=== PATIENT | male | born 1950 | race Caucasian/White ===

== ENCOUNTER 2024-05-17 09:17 | Inpatient (IN) | payer MEDICARE, OTHER, MEDICAID, SELFPAY ==
[2024-05-17] VITALS (25 sets, daily range): BP systolic 119–189; BP diastolic 70–111; PULSE 85–107; RESP 12–28; TEMP 36.5–36.9; O2SAT 95–100; BMI 25.9
--- NOTE | ~2024-05-17 | CT_ITS ---
EXAMINATION: CT abdomen pelvis w con DATE: 05/17/2024 10:20 INDICATION: Hematuria TECHNIQUE: Computed tomography (CT) of the abdomen and pelvis was performed with 100 mL Omnipaque-350 intravenous contrast. Automated exposure control and iterative reconstruction technique were employe d. The dose-length product was 656.94 mGy-cm. COMPARISON: None FINDINGS: Mild dependent atelectasis in bilateral lower lobes. Mild cardiomegaly. Atherosclerotic coronary macey ry calcifications. No pericardial or pleural effusion. Small sliding-type hiatal hernia. Cholecystect daphne clips the gallbladder fossa. Liver, spleen, pancreas and bilateral adrenal glands are normal. The re are bilateral renal cysts the largest on the right measuring 5.6 cm. There is a 1.4 cm high attenu ation lesion at the anterior interpolar left kidney which could represent either a complex proteinace ous/hemorrhagic cyst or solid renal cell carcinoma. There are small scattered colonic diverticulosis without adjacent from trace stranding to suggest diverticulitis. Small bowel and appendix are normal. There is prominent nonuniform wall thickening along the posterior and inferior bladder with strandin g in the surrounding fat suspicious for cystitis. There is some high attenuation material at the base of the bladder suspicious for clot with couple foci of possible active contrast extravasation. No fr ee intraperitoneal gas or fluid. No pathologically enlarged abdominal or pelvic lymphadenopathy. IMPRESSION: 1. Findings most suggestive of hemorrhagic cystitis with a couple foci of suspected active extravasat ion into the lumen of the bladder. Consider urology consultation. 2. 1.4 cm indeterminate hypodense attenuation left renal lesion most likely proteinaceous/hemorrhagic cyst although differential includes solid renal cell carcinoma. Recommend further evaluation with pr e and postcontrast MRI or CT. 3. Small sliding-type hiatal hernia. Reviewed, dictated and finalized at location A. CAMERA OPERATOR IMPRESSION: 1. Findings most suggestive of hemorrhagic cystitis with a couple foci of suspe cted active extravasation into the lumen of the bladder. Consider urology consu ltation. 2. 1.4 cm indeterminate hypodense attenuation left renal lesion most likely pro teinaceous/hemorrhagic cyst although differential includes solid renal cell car cinoma. Recommend further evaluation with pre and postcontrast MRI or CT. 3. Small sliding-type hiatal hernia.
--- NOTE | ~2024-05-17 | XR_ITS ---
CHEST RADIOGRAPH CLINICAL HISTORY: hemorrhagic cystitis . COMPARISON: None available TECHNIQUE: Single portable view of the chest. FINDINGS The cardiomediastinal silhouette is unremarkable. The lungs are clear. Visualized osseous structures and soft tissues are unremarkable. IMPRESSION: No focal infiltrate or effusion. Reviewed, dictated and finalized at location A. HOISTER
--- NOTE | ~2024-05-17 | MR_ITS ---
EXAMINATION: MR abdomen wo/w con DATE: 05/19/2024 12:29 INDICATION: Kidney mass. TECHNIQUE: Magnetic resonance imaging (MRI) of the abdomen was performed without and with 17 mL Multi Edna intravenous contrast. COMPARISON: CT abdomen and pelvis 05/17/2024 FINDINGS: The liver and spleen are normal. There are changes of cholecystectomy. The pancreas and adrenal gland s are normal. There are cysts and hemorrhagic cysts in the kidneys measuring up to 6.0 cm on the righ t. There are no dilated loops of bowel. There are no pathologically enlarged lymph nodes. There is no free intraperitoneal fluid. IMPRESSION: 1. Benign cysts in the kidneys. Reviewed, dictated and finalized at location A. RACT FORESTER
--- NOTE | 2024-05-17 09:39 | ED_ITS ---
HPI - General Adult General Chief complaint: Urogenital-Male Stated complaint: blood in urine Time Seen by Provider: 05/17/24 09:25 History of Present Illness HPI narrative: 73-year-old male present to the emergency department for evaluation for gross hematuria. Patient had some urine and his blood last night but then had gross hematuria this morning. Patient denies any history of urinary retention or bladder or prostate cancer. Patient is not on any blood thinners. Patient denies any recent illness and denies any abdominal pain with this. Patient does have history of poorly controlled type 2 diabetes and dementia Related Data Home Medications ?Medication ?Instructions ?Recorded ?Confirmed ?Last Taken ?Type Lactobacillus acidophilus 100 mg PO BID 05/17/24 05/17/24 Unknown History (Acidophilus capsule) acetaminophen 325 mg capsule 650 mg PO Q6H PRN pain 05/17/24 05/17/24 Unknown History atorvastatin 40 mg tablet 40 mg PO QPM 05/17/24 05/17/24 Unknown History baclofen 10 mg tablet 10 mg PO DAILY 05/17/24 05/17/24 Unknown History bismuth subsalicylate 525 mg/15 mL 1,050 mg PO BID PRN diarrhea 05/17/24 05/17/24 Unknown History oral suspension (Kaopectate Ex Str (bismuth ss)) cholecalciferol (vitamin D3) 25 25 mcg PO DAILY 05/17/24 05/17/24 Unknown History mcg (1,000 unit) capsule (Vitamin D3) cholestyramine (with sugar) 4 gram 1 ea PO DAILY 05/17/24 05/17/24 Unknown History powder for susp in a packet cilostazol 100 mg tablet 100 mg PO BID 05/17/24 05/17/24 Unknown History dapagliflozin propanediol 10 mg 10 mg PO DAILY 05/17/24 05/17/24 Unknown History tablet (Farxiga) diclofenac sodium 1 % topical gel 2 g topical BID 05/17/24 05/17/24 Unknown History gabapentin 100 mg capsule 100 mg PO TID 05/17/24 05/17/24 Unknown History insulin glargine 100 unit/mL (3 20 unit subcut QPM 05/17/24 05/17/24 Unknown History mL) subcutaneous pen (Lantus Solostar U-100 Insulin) lactase 3,000 unit tablet (Dairy 6,000 unit PO QID PRN lactose 05/17/24 05/17/24 Unknown History Relief) intolerance loperamide 2 mg capsule 2 mg PO Q6H PRN loose stool 05/17/24 05/17/24 Unknown History (Anti-Diarrheal (loperamide)) multivitamin (Daily Multi-Vitamin 1 tablet PO DAILY 05/17/24 05/17/24 Unknown History tablet) ondansetron HCl 4 mg tablet 4 mg PO Q6H PRN nausea and vomiting 05/17/24 05/17/24 Unknown History pantoprazole 40 mg tablet,delayed 40 mg PO Q12H 05/17/24 05/17/24 Unknown History release sucralfate 1 gram tablet 1 g PO BID 05/17/24 05/17/24 Unknown History tamsulosin 0.4 mg capsule 0.4 mg PO DAILY 05/17/24 05/17/24 Unknown History trazodone 50 mg tablet 25 mg PO DAILY 05/17/24 05/17/24 Unknown History venlafaxine 75 mg tablet 75 mg PO DAILY 05/17/24 05/17/24 Unknown History vitamin B12 500 mcg-folic acid 400 1 tablet PO DAILY 05/17/24 05/17/24 Unknown History mcg tablet Allergies Allergy/AdvReac Type Severity Reaction Status Date / Time glyburide Allergy Unknown Unknown Verified 05/17/24 15:16 lisinopril Allergy Unknown Unknown Verified 05/17/24 15:16 metformin Allergy Unknown Unknown Verified 05/17/24 15:16 Review of Systems 2 Review of Systems: All systems reviewed & are unremarkable except as noted in HPI and below [facility] Social History Social History Smoking packs per day: 3 Smoking cigarettes per day: 60.0 Years smoked: 20 Smoking pack-years: 60.00 Smoking status: Former smoker Tobacco type: cigarettes Alcohol intake: former Drinks per week: 120 Substance use: never Substance use type: does not use Last use: 3-4 cases per week Do You Feel Safe in your Home?: Yes Lack of Transportation: No Lack of Food: Never True Current Housing: I Have Housing Concerned About Future Housing: No Difficulty Paying Gas/Electric Bills: No Difficulty Paying for Meds: No Currently Unemployed: No Education: High School Diploma/GED Difficulty w/ Childcare or Family Care: No Spiritual care concerns: No Exam 2 Narrative: APPEARANCE: Well appearing, no pain, no distress, well-nourished. HEAD: normocephalic, atraumatic. EYES: PERRLA/EOMI, conjunctivae clear. NOSE: Normal no drainage EARS:TMS clear with good light reflex. THROAT: Pharynx clear, no exudate. NECK: Supple. No adenopathy, no masses. RESPIRATORY: Airway patent, respirations nonlabored. Clear to auscultation bilaterally, no rales, rhonchi, wheezing. CARDIOVASCULAR: Regular rate and rhythm without murmurs rubs or gallops. ABDOMINAL: Soft, nontender, nondistended, normal bowel sounds MUSCULOSKELETAL: Moves all extremities. Strength/ROM intact, No edema, No calf tenderness. NEURO: Alert. Cranial nerves II through XII intact. Grossly SKIN: Warm, dry. Normal Color Course Vital Signs Vital signs: Vital Signs Temperature 97.9 F 05/17/24 09:22 Pulse Rate 97 05/17/24 09:22 Respiratory Rate 18 05/17/24 09:22 Blood Pressure 189/100 H 05/17/24 09:22 Pulse Oximetry 97 05/17/24 09:22 Oxygen Delivery Room Air 05/17/24 09:22 Temperature 97.9 F 05/17/24 11:01 Pulse Rate 90 05/17/24 13:23 Respiratory Rate 20 05/17/24 13:23 Blood Pressure 163/86 H 05/17/24 13:23 Pulse Oximetry 96 05/17/24 13:23 Oxygen Delivery Room Air 05/17/24 09:22 Medical Decision Making MDM Narrative Medical decision making narrative: 73 old male presenting emergency department for evaluation for gross hematuria. Patient is not on any blood thinners and patient denies any prior history bladder cancer or urinary issues. Patient did have gross hematuria. CT abdomen pelvis ordered and CBI was ordered. CT was concerning for active extravasation. Urology was consulted. CV IA did help to clear the urine but when the CBI was slowed patient did continue to recline. Patient was updated results of the workup plan for admission. Case was discussed with hospitalist patient was accepted for admission. Differential Diagnosis Differential Diagnosis: Hematuria, bladder cancer, urinary tract infection, kidney stone Vital Signs Vital Signs: Vital Signs Temperature 97.9 F 05/17/24 09:22 Pulse Rate 97 05/17/24 09:22 Respiratory Rate 18 05/17/24 09:22 Blood Pressure 189/100 H 05/17/24 09:22 Pulse Oximetry 97 05/17/24 09:22 Oxygen Delivery Room Air 05/17/24 09:22 Temperature 97.9 F 05/17/24 11:01 Pulse Rate 90 05/17/24 13:23 Respiratory Rate 20 05/17/24 13:23 Blood Pressure 163/86 H 05/17/24 13:23 Pulse Oximetry 96 05/17/24 13:23 Oxygen Delivery Room Air 05/17/24 09:22 Lab Data Lab results reviewed: Yes I reviewed the patient's lab results. 05/17/24 12:29 05/17/24 09:36 Labs: Lab Results 05/17/24 05/17/24 Range/Units 09:36 10:00 WBC 10.5 H (4.5-10.0) K/mm3 RBC 4.47 L (4.6-6.20) M/mm3 Hgb 12.5 L (14.0-18.0) g/dL Hct 41.1 L (42.0-52.0) % MCV 91.9 (80-100) fl MCH 28.0 (26-34) pg MCHC 30.4 L (32-36) g/dl RDW 14.6 H (11.5-14.5) % Plt Count 207 (150-375) k/mm3 MPV 10.4 (7.4-10.4) fl Immature Gran % (Auto) 0.3 (0-0.5) % Neut % (Auto) 63.2 (45.5-73.1) % Lymph % (Auto) 25.1 (18.3-44.2) % [place] % (Auto) 8.4 (2.6-8.5) % Eos % (Auto) 2.3 (0-4.4) % Baso % (Auto) 0.7 (0.2-1.2) % Lymph # (Auto) 2.64 (0.9-3.2) K/mm3 [place] # (Auto) 0.9 H (0.1-0.6) K/mm3 Eos # (Auto) 0.2 (0-0.3) K/mm3 Baso # (Auto) 0.1 (0.0-0.1) K/mm3 Abs Immat Gran (auto) 0.03 (0.00-0.031) K/mm3 Absolute Neuts (auto) 6.7 (1.3-6.7) K/mm3 Absolute Nucleated RBC 0.000 (0.0-0.012) K/mm3 Nucleated RBC % 0.0 (0.0-0.2) % PT 13.3 (11.1-14.7) Seconds INR 1.0 APTT 28.3 (22.3-36.8) Seconds Sodium 141 (137-145) mmol/L Potassium 4.2 (3.4-5.0) mmol/L Chloride 103 (98-107) mmol/L Carbon Dioxide 31 H (22-30) mmol/L Anion Gap 7 (4-12) mmol/L BUN 15 (9-20) mg/dL Creatinine 0.80 (0.7-1.3) mg/dL Estim Creat Clear Calc 77 ml/min Estimated GFR > 60 (59 - ) Glucose 135 H (65-110) mg/dL Calcium 8.6 (8.4-10.2) mg/dL Total Bilirubin 0.6 (0.2-1.3) mg/dL AST 25 (17-59) U/L ALT 18 (6-50) U/L Alkaline Phosphatase 92 (38-126) U/L Total Protein 7.0 (6.3-8.2) g/dL Albumin 3.9 (3.5-5.1) g/dL Urine Color Red H (Yellow) Urine Appearance Turbid H (Clear) Urine pH TNP Ur Specific [place] 1.010 (1.010-1.020) Urine Protein TNP Urine Glucose (UA) TNP Urine Ketones TNP Ur Blood (Man) 4+ H (Negative) Urine Nitrate TNP Urine Bilirubin TNP Urine Urobilinogen TNP Leukocyte Esterase Rfl TNP Urine RBC >100 H (0-2) /hpf Urine WBC Unable to determine (0-3) /hpf Blood Type O Positive Antibody Screen Negative Imaging Data Radiologist's impression: Impressions Abdomen/Pelvis CT 05/17/24 10:39 IMPRESSION: 1. Findings most suggestive of hemorrhagic cystitis with a couple foci of suspected active extravasation into the lumen of the bladder. Consider urology consultation. 2. 1.4 cm indeterminate hypodense attenuation left renal lesion most likely proteinaceous/hemorrhagic cyst although differential includes solid renal cell carcinoma. Recommend further evaluation with pre and postcontrast MRI or CT. 3. Small sliding-type hiatal hernia. Discharge Plan Discharge Clinical Impression: Gross hematuria Patient Disposition: Still a Patient Condition: Serious
[2024-05-17 09:44] LABS: Basophils Absolute Auto 0.1 K/mm3 (0.0-0.1); Basophils Percent Auto 0.7 % (0.2-1.2); Eosinophils Absolute Auto 0.2 K/mm3 (0-0.3); Eosinophils Percent Auto 2.3 % (0-4.4); Hematocrit 41.1 % (42.0-52.0); Hemoglobin 12.5 g/dL (14.0-18.0); Immature Granulocyte Absolute 0.03 K/mm3 (0.00-0.031); Immature Granulocyte Percent A 0.3 % (0-0.5); Lymphocytes Absolute Auto 2.64 K/mm3 (0.9-3.2); Lymphocytes Percent Auto 25.1 % (18.3-44.2); Mean Corpuscular HGB Conc 30.4 g/dl (32-36); Mean Corpuscular Volume 91.9 fl (80-100); Mean Platelet Volume 10.4 fl (7.4-10.4); Monocytes Absolute Auto 0.9 K/mm3 (0.1-0.6); Monocytes Percent Auto 8.4 % (2.6-8.5); Neutrophils Absolute Auto 6.7 K/mm3 (1.3-6.7); Neutrophils Percent Auto 63.2 % (45.5-73.1); Platelet Count Result 207 k/mm3 (150-375); Red Blood Count 4.47 M/mm3 (4.6-6.20); Red Cell Distribution Width 14.6 % (11.5-14.5); White Blood Count 10.5 K/mm3 (4.5-10.0)
[2024-05-17 09:54] LABS: Alanine Aminotransferase 18 U/L (6-50); Albumin Level 3.9 g/dL (3.5-5.1); Alkaline Phosphatase 92 U/L (38-126); Anion Gap 7 mmol/L (4-12); Aspartate Amino Transferase 25 U/L (17-59); Bilirubin,Total 0.6 mg/dL (0.2-1.3); Blood Urea Nitrogen 15 mg/dL (9-20); Calcium 8.6 mg/dL (8.4-10.2); Carbon Dioxide 31 mmol/L (22-30); Chloride 103 mmol/L (98-107); Estimated CRCL calculation 77 ml/min; Estimated Glomerular Filt Rate > 60; Glucose 135 mg/dL (65-110); Potassium 4.2 mmol/L (3.4-5.0); Sodium 141 mmol/L (137-145)
--- OUTSIDE RECORDS SUMMARY | 2024-05-17 10:05 | XMS_ITS | Continuity of Care Document ---
Author Name [facility] Organization [facility] Care Team Providers Care Medical Office Worker Name Role Phone [facility] Unavailable Unavailable Problems Combined list of problems from Department of Defense and Veterans Affairs facilities. It does not include entries that were removed or entered in error. Problem Status Onset Date Problem Type Date of Resolution Comments Source Acute osteomyelitis of phalanx of toe Active Condition [facility] Altered mental status Active Condition [facility] Chest Wall Pain (ICD-9-CM 786.52) Active Condition [facility] Diabetes Mellitus * (ICD-9-CM 250.00) Active Condition [facility] Diabetic peripheral neuropathy Active Condition [facility] Diverticulitis of colon Active Condition [facility] DM - Diabetes mellitus Active Condition [facility] Fall Active Condition [facility] Hernia, Ventral (ICD-9-CM 553.20) Active Condition [facility] History of male erectile disorder Active Condition [facility] HTN * (ICD-9-CM 401.9) Active Condition [facility] Hyperlipidemia Active Condition [facility] Hypertension Active Condition [facility] Impotence Active Condition [facility] Knee pain Active Condition [facility] Microscopic Hematuria * (ICD-9-CM 599.7) Active Condition [facility] Mixed hyperlipidemia * (ICD-9-CM 272.2) Active Condition [facility] Muscle weakness Active Condition [facility] Noncompliance * (ICD-9-CM V15.81) Active Condition [facility] Obesity * (ICD-9-CM 278.00) Active Condition [facility] Sepsis Active Condition [facility] DIABETES MELLI W/O COMP TYP II Inactive Condition 04/15/2001 [facility] ECHINOCOCCOSIS NOS LIVER Inactive Condition 10/14/2001 [facility] HEMATURIA Inactive Condition 04/15/2001 [facility] INCISIONAL HERNIA Inactive Condition 10/14/2001 [facility] METABOLISM DISORDER NOS Inactive Condition 04/15/2001 [facility] Medications Combined list of outpatient medications from [facility] and [facility] facilities.Medications provided include 1) outpatient medications from the last 15 months, and 2) patient-reported medications. Medication Details Route Status Patient Instructions Prescription Expires Prescription Number Last Dispense Date Ordering Provider Order Date Order Qty Source FIDAXOMICIN TAB TAKE 200MG BY MOUTH TWICE DAILY - STOP AFTER MORNING DOSE ON 06-05-22. ORDER FOR REHAB FACILITY . ACTIVE BABAR WEBBER 2022 [facility] PANTOPRAZOL E NA 40MG TAB,EC TAKE ONE TABLET BY MOUTH TWICE A DAY BEFORE MEALS FOR EXCESSIV E PRODUCTI ON OF STOMACH ACID ORAL 05/31/2023 [id number] TRA PATEL 2022 60 [facility] Allergies, Adverse Reactions, Alerts Combined list of allergies from [facility] and [facility] facilities. It does not include entries that were removed or entered in error. Substance Category Reaction Severity Reaction type Status Date Reported Comments Source GLYBURIDE Propensity to adverse reactions to drug (finding) Eruption active 7 [facility] LISINOPRIL Propensity to adverse reactions to drug (finding) Eruption active 6 [facility] LISINOPRIL 2.5MG TAB Propensity to adverse reactions to drug (finding) Eruption active 9 [facility] METFORMIN Propensity to adverse reactions to drug (finding) Diarrhea active 9 [facility] METFORMIN Propensity to adverse reactions to drug (finding) Diarrhea, Eruption active 6 [facility] Immunizations Combined list of available immunizations from the [facility] and [facility] facilities. Immunization Series Date Given Administered By Site Reaction Lot Number CVX Code Drug Decorating Inspector Status Comments Source COVID-19 ([employer]), MRNA, LNP-S, PF, DEYANIRA-SUCROSE, 30 MCG/0.3 ML (AGES 12+ YEARS) 1 2022 309 complet ed [facility] TDAP 2022 ANGEL ROCKWELL LEFT DELTO ID [id number] 115 complet ed [facility] INFLUENZA VACCINE, QUADRIVALENT, ADJUVANTED 2021 205 complet ed [facility] INFLUENZA, UNSPECIFIED FORMULATION 2016 88 complet ed [facility] INFLUENZA, UNSPECIFIED FORMULATION 2013 88 complet ed OUTSIDE FACILITY [facility] TDAP 2011 115 complet ed [facility] INFLUENZA, UNSPECIFIED FORMULATION 2007 88 complet ed [facility] Results Combined list of recent chemistry, hematology and other laboratory results from Department of Defense and Veterans Affairs, ranging from 15 months to all on record, depending upon the facility. Order Name Results Value Reference Range Date Interpretation Specimen Comments Source GLUCOSE-A T GLUCOSE [MASS/VOLUM E] IN BLOOD BY AUTOMATED TEST STRIP 129 mg/dL 70 - 110 05/30 H Specimen Type: BLOOD Comment: Notify RN Test performed by: Tracey Boyd on meter [id number] Ordering Provider: BERNIE PATEL Report Released Date/Time: May 30, 2022 11:45 AM Reporting Lab: [facility] [address] [address] Performing Lab: [facility] [address] [address] [facility] GLUCOSE-A T GLUCOSE [MASS/VOLUM E] IN BLOOD BY AUTOMATED TEST STRIP 105 mg/dL 70 - 110 05/30 Specimen Type: BLOOD Comment: Test performed by: Donald HARRIS on meter [id number] LOT:[id number] Ordering Provider: BERNIE PATEL Report Released Date/Time: May 30, 2022 05:57 AM Reporting Lab: [address] [address] Performing Lab: [place] [id number] [place] [address] [facility] GLUCOSE-A T GLUCOSE [MASS/VOLUM E] IN BLOOD BY AUTOMATED TEST STRIP 131 mg/dL 70 - 110 05/29 H Specimen Type: BLOOD Comment: Notify RN Test performed by: Niles Cole on meter [id number] Ordering Provider: BERNIE PATEL Report Released Date/Time: May 29, 2022 08:38 PM Reporting Lab: [place] [phone] Performing Lab: [address] [phone] GLUCOSE-A T GLUCOSE [MASS/VOLUM E] IN BLOOD BY AUTOMATED TEST STRIP 238 mg/dL 70 - 110 05/29 H Specimen Type: BLOOD Comment: Notify RN Test performed by: Shivam HARRIS on meter [id number] LOT:[id number] Ordering Provider: BERNIE PATEL Report Released Date/Time: May 29, 2022 04:49 PM Reporting Lab: [address] [address] Performing Lab: [place] [id number] GLUCOSE-A T GLUCOSE [MASS/VOLUM E] IN BLOOD BY AUTOMATED TEST STRIP 135 mg/dL 70 - 110 05/29 H Specimen Type: BLOOD Comment: Notify RN Test performed by: Stanley HARRIS on meter [id number] Ordering Provider: NORA KUHN Report Released Date/Time: May 29, 2022 12:01 PM Reporting Lab: [address] [address] Performing Lab: [address] [phone] GLUCOSE-A T GLUCOSE [MASS/VOLUM E] IN BLOOD BY AUTOMATED TEST STRIP 119 mg/dL 70 - 110 05/29 H Specimen Type: BLOOD Comment: Notify RN Test performed by: Vega HARRIS on meter [id number] Ordering Provider: NORA KUHN Report Released Date/Time: May 29, 2022 05:38 AM Reporting Lab: [facility] [address] [address] Performing Lab: [facility] [address] [address] [facility] GLUCOSE-A T GLUCOSE [MASS/VOLUM E] IN BLOOD BY AUTOMATED TEST STRIP 174 mg/dL 70 - 110 05/28 H Specimen Type: BLOOD Comment: Test performed by: Michel HARRIS on meter [id number] Ordering Provider: NORA KUHN Report Released Date/Time: May 28, 2022 08:58 PM Reporting Lab: [facility] [address] [address] Performing Lab: [facility] [address] [place] [address] [facility] MAGNESIUM MAGNESIUM [MASS/VOLUM E] IN SERUM OR PLASMA 1.7 mg/dL 1.5 - 2.4 05/28 Specimen Type: PLASMA No comment entered. Ordering Provider: VANDANA FARR Report Released Date/Time: May 27, 2022 11:15 AM Reporting Lab: [facility] [address] [address] Performing Lab: [facility] [address] [address] [facility] PO4 PHOSPHATE [MASS/VOLUM E] IN SERUM OR PLASMA 3.9 mg/dL 2.5 - 4.9 05/28 Specimen Type: PLASMA No comment entered. Ordering Provider: VANDANA FARR Report Released Date/Time: May 27, 2022 11:15 AM Reporting Lab: [facility] [address] [address] Performing Lab: [facility] [address] [address] [facility] BMP+ALBUM IN CREATININE [MASS/VOLUM E] IN SERUM OR PLASMA 0.7 mg/dL 0.6 - 1.3 05/28 Specimen Type: PLASMA No comment entered. Ordering Provider: VANDANA FARR Report Released Date/Time: May 27, 2022 11:15 AM Reporting Lab: [facility] [address] [address] Performing Lab: [facility] [address] [address] [facility] BMP+ALBUM IN GLUCOSE [MASS/VOLUM E] IN SERUM OR PLASMA 97 mg/dL 70 - 109 05/28 Specimen Type: PLASMA No comment entered. Ordering Provider: VANDANA FARR Report Released Date/Time: May 27, 2022 11:15 AM Reporting Lab: [facility] [address] [address] Performing Lab: [facility] [address] [address] [facility] BMP+ALBUM IN SODIUM [MOLES/VOLU ME] IN SERUM OR PLASMA 135 mmol/L 135 - 145 05/28 Specimen Type: PLASMA No comment entered. Ordering Provider: VANDANA FARR Report Released Date/Time: May 27, 2022 11:15 AM Reporting Lab: [facility] [address] [address] Performing Lab: [facility] [address] [address] [facility] BMP+ALBUM IN POTASSIUM [MOLES/VOLU ME] IN SERUM OR PLASMA 3.7 mmol/L 3.5 - 5.1 05/28 Specimen Type: PLASMA No comment entered. Ordering Provider: VANDANA FARR Report Released Date/Time: May 27, 2022 11:15 AM Reporting Lab: [facility] [address] [address] Performing Lab: [facility] [address] [address] [facility] BMP+ALBUM IN CHLORIDE [MOLES/VOLU ME] IN SERUM OR PLASMA 107 mmol/L 100 - 109 05/28 Specimen Type: PLASMA No comment entered. Ordering Provider: VANDANA FARR Report Released Date/Time: May 27, 2022 11:15 AM Reporting Lab: [facility] [address] [address] Performing Lab: [facility] [address] [address] [facility] BMP+ALBUM IN CARBON DIOXIDE, TOTAL [MOLES/VOLU ME] IN SERUM OR PLASMA 27 mmol/L 22 - 29 05/28 Specimen Type: PLASMA No comment entered. Ordering Provider: VANDANA FARR Report Released Date/Time: May 27, 2022 11:15 AM Reporting Lab: [facility] [address] [address] Performing Lab: [facility] [address] [address] [facility] BMP+ALBUM IN ALBUMIN [MASS/VOLUM E] IN SERUM OR PLASMA 2.0 g/dL 3.4 - 5.0 05/28 L Specimen Type: PLASMA No comment entered. Ordering Provider: VANDANA FARR Report Released Date/Time: May 27, 2022 11:15 AM Reporting Lab: [facility] [address] [address] Performing Lab: [facility] [address] [address] [facility] BMP+ALBUM IN CALCIUM [MASS/VOLUM E] IN SERUM OR PLASMA 7.6 mg/dL 8.3 - 10.3 05/28 L Specimen Type: PLASMA No comment entered. Ordering Provider: VANDANA FARR Report Released Date/Time: May 27, 2022 11:15 AM Reporting Lab: [facility] [address] [address] Performing Lab: [facility] [address] [address] [facility] BMP+ALBUM IN UREA NITROGEN [MASS/VOLUM E] IN SERUM OR PLASMA 23 mg/dL 5.0 - 20.0 05/28 H Specimen Type: PLASMA No comment entered. Ordering Provider: VANDANA FARR Report Released Date/Time: May 27, 2022 11:15 AM Reporting Lab: [facility] [address] [address] Performing Lab: [facility] [address] [address] [facility] BMP+ALBUM IN GLOMERULAR FILTRATION RATE/1.73 SQ M.PREDICTED [VOLUME RATE/AREA] IN SERUM, PLASMA OR BLOOD BY CREATININE- BASED FORMULA (CKD-EPI 2020) >90 90 05/28 Specimen Type: PLASMA No comment entered. Ordering Provider: VANDANA FARR Report Released Date/Time: May 27, 2022 11:15 AM Reporting Lab: [facility] [address] [address] Performing Lab: [facility] [address] [address] [facility] Encounters Combined list of: 1) Encounters from Department of Veterans Affairs facilities going backup to the last 18 months, not all [place] inpatient encounters are included; 2) Encounters from the Department of Defense facilities going backup to 280 months. Location Location Details Encounter Type Encounter Number Reason For Visit Attending Provider ADM Date DC Date Status Disposition Source [facility] Outpatient Encounter [id number] 01/24 [facility] Outpatient Encounter [id number] 02/08 [facility] Outpatient Encounter [id number] 02/13 [facility] Outpatient Encounter [id number] 05/13 [facility] Outpatient Encounter [id number] 05/13 [facility] Outpatient Encounter [id number] 06/16 [facility] Outpatient Encounter [id number] 11/26 [facility] Outpatient Encounter [id number] SCOTTIE CEJA 01/29 [facility] TARGETED CASE MANAGEMENT [id number] MARCOS RIZVI 04/13 [facility] Outpatient Encounter [id number] 04/14 [facility] Outpatient Encounter [id number] ROGERIO MIDDLETON 04/17 [facility] Social History Combined list of available smoking, tobacco, and other social history from Department of Defense and Veterans Affairs facilities. Social History Type Response Date Comment Sourc e Tobacco smoking status NHIS VA-TOBACCO FORMER USER 03/07/2022 [facility] History of tobacco use VA-TOBACCO QUIT 1 5 YRS OR MORE 03/07/2022 [facility] History of tobacco use VA-TOBACCO FORMER USER 04/27/2020 [facility] History of tobacco use QUIT TOBACCO >7 Y EARS AGO 07/05/2017 [facility] History of tobacco use CURRENT TOBACCO USER 07/22/2015 [facility] History of tobacco use QUIT TOBACCO >7 Y EARS AGO 02/24/2014 [facility] History of tobacco use CURRENT TOBACCO USER 10/13/2012 [facility] History of tobacco use QUIT TOBACCO >7 Y EARS AGO 08/23/2006 [facility] History of tobacco use CURRENT NON-TOBAC CO USER-HX OF USE 04/15/2001 [facility] Advance Directives List of completed, amended, or rescinded Advance Directives on record at Department of Veterans Affairs facilities. An actual copy of the Directive is not included. Date Advance Directive Provider Source 04/27/2020 ADVANCE DIRECTIVE BYRON [facility]IGHT [facility]
--- OUTSIDE RECORDS SUMMARY | 2024-05-17 10:05 | XMS_ITS | Encounter Summary ---
Author Name [facility] Organization [facility] Address [address] [place] [address] Care Team Providers Care Bank Consultant Name Role Phone DAREN MANN Primary Care Provider Unavailab le Insurance Providers: All historical and current Section Date Range: From patient's date of to the date document was created. This section includes the names of all active insurance providers for the patient. Insurance Provider Type of Coverage Plan Name Start of Policy Coverage End of Policy Coverage Group Number Member ID Insurance Provider's Telephone Number Policy Maldonado's Name Patient's Relationship to Policy Maldonado MEDICARE (WNR) MEDICARE (M) PART A August 06, 2014 PART A [id number] MULUGETA BACHWin FLAVIO PATIENT MEDICARE (WNR) MEDICARE (M) PART A August 06, 2014 PART A [id number] MULUGETA BACHWin FLAVIO PATIENT MEDICARE (WNR) MEDICARE (M) PART B August 06, 2014 PART B [id number] MULUGETA BACHWin FLAVIO PATIENT Selected Encounter This section includes the information on record at [place] for the Encounter. Date/Time Encounter Type Encounter Description Reason Provider Source Apr 13, 2024 12:02 PM TARGETED CASE MANAGEMENT ADMIN PAT ACTIVTIES (MASNONCT) PENG RIZVI IHGregory Encounter Template Text not used by [place] Plan of Treatment: Future Appointments (+ 6 months) and Future Tests (+/- 45 days) The Plan of Treatment section includes future care activities for the patient from all [place] [facility] This section includes future appointments and future orders which are active, pending or scheduled. Future Appointments This section includes appointments that were scheduled to occur 6 months from the date of the Encounter, up to a maximum of 20 appointments. The data comes from all [facility] facilities. Appointment Date/Time Appointment Type Appointme nt Facility Name Apr 17, 2024 01:00 PM AMBULATORY - MEDICINE [facility] Social History: Smoking Status (Most current) and Tobacco Use (All prior to encounter date) This section includes the most current, and the historical, smoking and tobacco- related health factors from the [place] facility where the Encounter took place. Current Smoking Status This section includes the most current smoking, or tobacco-related health factor, from the [place] facility where the Encounter took place. Date/Time Current Smoking Status Comment Demarcus itmaya Feb 24, 2014 01:06 PM QUIT TOBACCO >7 YEARS AGO [facility] Tobacco Use History This section includes a history of the smoking, or tobacco-related health factors, that were collected on or before the date of the Encounter. The data comes from the [place] facility where the Encounter took place. Date/Time Smoking Status/Tobacco Use Comment F acelba Feb 24, 2014 01:06 PM QUIT TOBACCO >7 YEARS AGO [facility] Oct 13, 2012 11:29 AM CURRENT TOBACCO USER [facility] Oct 13, 2012 11:29 AM TOBACCO MEDS OFFER ED BUT DECLINED [facility] August 23, 2006 08:26 AM QUIT TOBACCO >7 YEARS AGO [facility] Apr 15, 2001 01:31 PM CURRENT NON-TOBACC O USER-HX OF USE [facility] Advance Directives: All historical and current Section Date Range: From patient's date of to the date document was created. This section includes ALL of a patient's completed or amended [place] Advance and Rescinded Directives. The entries below indicate that a directive exists for the patient, but an actual copy is not included with this document. The data comes from all [facility]. Date Advance Directives Provider Source Apr 27, 2020 ADVANCE DIRECTIVE BYRON WRIGHT [facility] Encounter Notes: All associated encounter notes This section contains the clinical notes associated to the Encounter. Date/Time Encounter Note(s) Provider Source Apr 13, 2024 12:03 PM PRIMARY CARE NOTE: LOCAL TITLE: [facility] TRAVELING PCMM NOTE ST STANDARD TITLE: PRIMARY CARE NOTE DATE OF NOTE: APR 13, 2024@12:03 ENTRY DATE: APR 13, 2024@12:04:07 AUTHOR: PENG RIZVI EXP COSIGNER: URGENCY: STATUS: COMPLETED Traveling/Relocating Care Coordination Patient-Centered Management Module (PCMM) New patient PCMM received and approved for permanent relocation of care to: [facility] Per chart review will establish care with a PCP on:04/17/[address] [facility] Please note the alternate [facility] is responsible for care until care is established at the receiving [facility]. /tevin/ PENG RIZVI REGISTERED NURSE, HOME TELEHEALTH COORDINATOR Signed: 04/13/2024 12:04 PENG RIZVI [facility]
--- OUTSIDE RECORDS SUMMARY | 2024-05-17 10:05 | XMS_ITS | CONTINUITY OF CARE DOCUMENT ---
Author Name jon webb Address Unknown Organization [facility] Address [address] [place] [address] Phone [phone] Care Team Providers Care Special Education Professional Name Role Phone Filipe Ramirez MD Unavailable Jaymie Paiz MD Unavailable [phone] GALINA TATE MD Unavailable PROBLEMS Condition Status Date Provider Notes Cardiology examination active Jaymie mayes MD PVD active Jaymie Paiz MD Leg Edema active Jaymie Paiz MD Diabetes, Type 2 active Jaymie Paiz MD G E R D active Jaymie Paiz MD Vitamin D deficiency active Jaymie Paiz MD Coronary Heart Disease active Jaymie mayes MD Neuropathy active Jaymie Paiz MD OSTEOARTHRITIS, Bilateral Knees active Margot Paiz MD Cardiology examination active Jaymie mayes MD ENCOUNTERS Date Type Provider Location Encounter Diag nosis - In-person encounter Office Visit Filipe Ramirez MD [facility] - In-person encounter Office Visit Jaymie Paiz MD [facility] Cardiology examination - In-person encounter Office Visit Jaymie Paiz MD [facility] - In-person encounter Office Visit Jaymie Paiz MD [facility] OSTEOARTHRITIS, Bilateral Knees - In-person encounter Office Visit Jaymie Paiz MD [facility] Cardiology examinationPVDLeg EdemaDiabetes, Type 2G E R DVitamin D deficiencyCoronary Heart DiseaseNeuropathy VITAL SIGNS Date Observation Value Provider Body Mass Index (Ratio) 37.65 kg/m2 Ector Ramirez MD blood pressure, diastolic 68 mm[Hg] Yoanna damon Pearson blood pressure, systolic 109 mm[Hg] Linda bunn Pearson oxygen saturation, oximetry 97 % Priti Pearson pulse rate 97 /min Priti Pearson respiratory rate E&M 12 /min Priti Pearson weight E&M 255 [lb_av] Priti Pearson height E&M 69 [in_i] Priti Pearson blood pressure, cuff size regular Yoanna damon Pearson Body Mass Index (Ratio) 38.39 kg/m2 Manuel Mathews blood pressure, diastolic 68 mm[Hg] Maryan Log blood pressure, systolic 122 mm[Hg] Odessa Simmsogbrittny blood pressure, cuff size regular Jefferson wolf Dougherty blood pressure, diastolic 68 mm[Hg] Ta bitha Dougherty blood pressure, systolic 122 mm[Hg] Tab itha Dougherty oxygen saturation, oximetry 97 % Catie Dougherty respiratory rate E&M 12 /min Catie Dougherty pulse rate 90 /min Catie Dougherty weight E&M 260 [lb_av] Catie Dougherty height E&M 69 [in_i] Catie Dougherty blood pressure, diastolic 70 mm[Hg] Maryan Log blood pressure, systolic 132 mm[Hg] Odessa kLogic pulse rate 87 /min William y blood pressure, cuff size regular Ja rr blood pressure, diastolic 70 mm[Hg] Ja rret blood pressure, systolic 132 mm[Hg] Sharon gong oxygen saturation, oximetry 100 % William respiratory rate E&M 16 /min William height E&M 69 [in_i] William y blood pressure, cuff size large An aidee Hughes blood pressure, diastolic 68 mm[Hg] An aidee Hughes blood pressure, systolic 123 mm[Hg] Ailyn barry Hughes oxygen saturation, oximetry 100 % Devi Hughes pulse rate 92 /min Devi Hughes height E&M 69 [in_i] Devi Hughes Body Mass Index (Ratio) 23.63 kg/m2 Ivelisse Oswald blood pressure, diastolic 66 mm[Hg] Maryan nkLogbrittny blood pressure, systolic 124 mm[Hg] Odessa [facility] blood pressure, diastolic 66 mm[Hg] Naya Oro blood pressure, systolic 124 mm[Hg] Julian Oro oxygen saturation, oximetry 99 % Danielle Oro pulse rate 93 /min Danielle hartman height E&M 69 [in_i] Danielle hartman weight E&M 160 [lb_av] Danielle hartman respiratory rate E&M 16 /min Roxana Oro blood pressure, cuff size large Naya Oro ALLERGIES No Known Drug Allergies HISTORY OF MEDICATION USE Medication Status Instructions Dates Provider Indications Com ments trazodone 50 mg tablet active Catie Dougherty Lantus Solostar U-100 Insulin 100 unit/mL (3 mL) insulin pen active Catie Dougherty atorvastatin 40 mg tablet active Catie Dougherty polymyxin B sulf-trimethoprim 10,000 unit- 1 mg/mL drops active Catie Dougherty aspirin 81 mg tablet,delayed release (DR/EC) active Take 1 tablet by mouth once a day Patricia Narayananorglmichael [facility] cilostazol 100 mg tablet active TAKE 1 TABLET BY MOUTH TWICE A DAY Jaymie Paiz MD Lipitor 20 mg tablet active TAKE 1 TABLET BY MOUTH EVERY DAY Patriciajoey Narayananmiglia [facility] tamsulosin 0.4 mg capsule active William oxycodone 5 mg tablet completed TAKE 1 TABLET BY MOUTH EVERY 6 HOURS NEEDED FOR BREAKTHROUGH PAIN - Patriciajoey Narayananmiglmichael [facility] lactulose 10 gram/15 mL solution completed - Patricia Narayananmimichael KLEINP insulin glargine 100 unit/mL (3 mL) insulin pen active Danielle Oro pantoprazole 40 mg tablet,delayed release (DR/EC) active Danielle Oro gabapentin 100 mg capsule active Danielle Oro ergocalciferol (vitamin D2) 1,250 mcg (50,000 unit) capsule active Danielle Oro sucralfate 1 gram tablet active Danielle Oro SOCIAL HISTORY Date Observation Value Provider personal history of marijuana use no Filipe Ramirez MD drug use no Filipe Hartman alcohol use no Filipe Hartman smoking, year quit 37 Filipe tuttle MD cigarette use yes Filipe Ramirez MD smoking status Former smoker Filipe reagan MD smoking, year quit 37 Jaymie Paiz MD cigarette use yes Jaymie Paiz MD personal history of marijuana use no Jaymie Paiz MD drug use no Jaymie Paiz MD alcohol use no Jaymie Paiz MD smoking status Former smoker Jaymie pate MD personal history of marijuana use no Patricia Ventimiglia CONTENT DEVELOPMENT SPECIALIST drug use no Patricia Ventimig chapincito [employer] DEVELOPMENT SPECIALIST alcohol use no Patricia Ventimig chapincito [facility] smoking status Never smoker Patricia Loera iglia [employer] DEVELOPMENT SPECIALIST social history reviewed E&M revi ewed - no changes required Jaymie Paiz MD social history E&M S moking History: Margaret kowalski has never smoked. Jaymie Paiz MD smoking status Never smoker Devi Saul social history E&M S moking History: Margaret kowalski has never smoked. Randi Oswald social history reviewed E&M revi ewed - no changes required Randi Oswald smoking status Never smoker Danielle Huseyin and FUNCTIONAL STATUS Date Observation Value Provider HRA, CV Assess/Plan, Angina (inactive) Management Plan continue current therapy Patricia Levyia [facility] HRA, CV Assess/Plan, Angina (inactive) Management Plan continue current therapy Randi Oswald INSURANCE PROVIDERS Payer name Policy type / Coverage type [facility] Medicaid 0 [id number] ADVANCE DIRECTIVES Name Date DISCUSSED - NO DECISION MADE TREATMENT PLAN Date Name Performer [id number],C, H is updated medication list for this problem includes: Pantoprazole 40 Mg Tablet,delayed Release (dr/ec) (Pantoprazole) Sucralfate 1 Gram Tablet (Sucralfate) Jaymie Paiz MD [id number],C,On vitamin D Jaymie Paiz MD [id number],C,C ontinues on insulin Jaymie Paiz MD [id number],C,L imited flexion and extension of both knees with inability to walk. Pt now wheelchair bound. May benefit from seeing orthopedist. Jaymie Paiz MD [id number],C,O n gabapentin. Likely related to Diabetes. Jaymie Paiz MD [id number],C,B ilateral amputations of toes on both feet. Denies of any pain. No ulcerations. 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 As he has no symptoms, and there were no ulcerations and being minimally ambulatory no intervention at present is indicated. Jaymie Paiz MD [id number],C,H e had cath done a few years ago that did not show any signficiant CAD. Jaymie Paiz MD [id number],C, O n supplementation Randi Oswald [id number],C, C ontinues on pantoprazole Randi Oswald [id number],C, C ontinues on insulin Randi Oswald [id number],C, H ad a cath a few years ago that did not show any signficiant CAD. Randi Oswald [id number],C, P t complains of non healing sore on right foot. Pt reports having all toes amputated for arterial disease, one surgery in Feb 2022 and one in May 2022. Will obtain ABIs to assess the arterial flow of both legs. Randi Oswald Cardiology Filipe Ramirez MD Cardiology: H is updated medication list for this problem includes: Insulin Glargine 100 Unit/ml (3 Ml) Insulin Pen (Insulin glargine) Filipe Ramirez MD Cardiology: Amelia e had cath done a few years ago that did not show any signficiant CAD. Filipe Ramirez MD Cardiology:Asymptoma tic and without lesions. I n this situation, medical therapy is best option. Intervention runs risk of occluding only blood flow to either foot. This could result in BKA. Filipe Ramirez MD Cardiology: H e had cath done a few years ago that did not show any signficiant CAD. Jaymie Paiz MD Cardiology: L imited flexion and extension of both knees with inability to walk. Pt now wheelchair bound. May benefit from seeing orthopedist. Jaymie Paiz MD Cardiology Jaymie Hartman Cardiology:CT-AIF wi ll be reviewed by Dr. Ambar alfaro anagment per Dr. Ambar Chang T-AIF IMPRESSION: 1 . Peripheral arterial disease as described above with areas of severe s tenosis and occlusion in the bilateral posterior tibial arteries and left t ibioperoneal trunk as detailed above. 2 . No abdominal aortic aneurysm or dissection. 3 . Bladder wall thickening and adjacent stranding, may be seen with cystitis i n the appropriate clinical setting. Neoplasm not excluded. 4 . Additional findings as detailed above. Jaymie aPiz MD Cardiology: H is updated medication list for this problem includes: Pantoprazole 40 Mg Tablet,delayed Release (dr/ec) (Pantoprazole) Sucralfate 1 Gram Tablet (Sucralfate) [facility] Cardiology:on replacement therap y [facility] Cardiology: H is updated medication list for this problem includes: Insulin Glargine 100 Unit/ml (3 Ml) Insulin Pen (Insulin glargine) [facility] Cardiology:His legs are swollen Lt >RT has abnormal GAURI in 09/2022 W e will do venous doppler to r/o DVT and/or venous insufficiency w ill need CT AIF w ill add asa and statin H is updated medication list for this problem includes: Aspirin 81 Mg Tablet,delayed Release (dr/ec) (Aspirin) ..... Take 1 tablet by mouth once a day Cilostazol 50 Mg Tablet (Cilostazol) ..... Take 1 tablet by mouth twice a day [facility] Cardiology: H is updated medication list for this problem includes: Pantoprazole 40 Mg Tablet,delayed Release (dr/ec) (Pantoprazole) Sucralfate 1 Gram Tablet (Sucralfate) Jaymie Paiz MD Cardiology:On vitamin D Jaymie Paiz MD Cardiology:Continues on insulin Jaymie Paiz MD Cardiology:Limited f lexion and extension of both knees with inability to walk. Pt now wheelchair bound. May benefit from seeing orthopedist. Jaymie Paiz MD Cardiology:On gabape ntin. Likely related to Diabetes. Jaymie Paiz MD Cardiology:Bilateral amputations of toes on both feet. Denies of any pain. No ulcerations. 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 As he has no symptoms, and there were no ulcerations and being minimally ambulatory no intervention at present is indicated. Jaymie Paiz MD Cardiology:He had ca th done a few years ago that did not show any signficiant CAD. Jaymie Paiz MD Cardiology: O n supplementation Randi Oswald Cardiology: C ontinues on pantoprazole Randi Oswald Cardiology: C ontinues on insulin Randi Oswald Cardiology: H ad a cath a few years ago that did not show any signficiant CAD. Randi Oswald Cardiology: P t complains of non healing sore on right foot. Pt reports having all toes amputated for arterial disease, one surgery in Feb 2022 and one in May 2022. Will obtain ABIs to assess the arterial flow of both legs. Randi Oswald Date Name PROTHROMBIN TIME WIT H INR LIPID PANEL CBC (INCLUDES DIFF/P LT) BASIC METABOLIC PANE L W/EGFR CT Angio AIF (Abd, l ower extremities) Venous Doppler Bilat eral LE Arterial Duplex Bi-L la EX HISTORY OF PROCEDURES Procedure Date Procedure Name Provider Procedure Notes S tatus Complex e/m visit add on Filipe Ramirez MD completed RENETTA Paiz MD complet ed RENETTA Paiz MD complet ed RENETTA Paiz MD complet ed RENETTA Paiz MD complet ed
--- OUTSIDE RECORDS SUMMARY | 2024-05-17 10:05 | XMS_ITS | Clinical Summary ---
Author Organization [facility] Address [address] [place] [address] Care Team Providers Care Clothing Supervisor Name Role Phone Unavailable Primary Care Provider Unavailabl e Source Comments [facility],non-owned Affiliates and Associated Physician Practices is amultiple site organization consisting of ambulatory clinics and hospital sitesin [place], [place], [place]. This disclosure is being madepursuant to the Care Everywhere program and may not contain all information available regarding this patient. Last updated 17.[facility] Beneq Allergies Active Allergy Reactions Criticality Noted Date Comments Lisinopril Urticaria 05/01/2014 Medications * Be aware that medications may not be up to date on this document. Alwaysverify current medications with the patient. Medication Sig Dispensed Refills Start Date End Date Status ibuprofen (MOTRIN) 600 MG tablet Take 1 Tab by mouth every 6 hours as needed for Pain. 20 Tab 0 05/01/2014 Active oxyCODONE-acetaminophe n (PERCOCET) 5-325 MG tablet Take 1 Tab by mouth every 4 hours as needed for Pain. 15 Tab 0 05/01/2014 Active Social History Tobacco Use Types Packs/Day Years Used Date Smoking Tobacco: Never Assessed Sex and Gender Information Value Date Recorded Sex Assigned at Not on file Gender Identity Not on file Sexual Orientation Not on file Last Filed Vital Signs Vital Sign Reading Time Taken Comments Blood Pressure 164/78 05/01/2014 2:24 AM MOTOR BLOCK MECHANIC Pulse 90 05/01/2014 2:24 AM MOTOR BLOCK MECHANIC Temperature 36.9 C (98.5 F) 05/01/2014 12:01 AM MOTOR BLOCK MECHANIC Respiratory Rate - - Oxygen Saturation 100% 05/01/2014 2:24 AM MOTOR BLOCK MECHANIC Inhaled Oxygen Concentration - - Weight 99.8 kg (220 lb) 05/01/2014 12:01 AM MOTOR BLOCK MECHANIC Height 170.2 cm (5' 7 ) 05/01/2014 12:01 AM MOTOR BLOCK MECHANIC Body Mass Index 34.46 05/01/2014 12:01 AM MOTOR BLOCK MECHANIC Plan of Treatment Health Maintenance Due Date Last Done Comments COLOGUARD (AGES 45-75) - COL ON CA SCREENING 1949 COLON MONITORING 1949 COLONOSCOPY - COLON CA SCREENING 1949 CT COLONOGRAPHY - COLON CA SCREENING 1950 Colorectal Cancer Screening 1949 FIT - COLON CA SCREENING 1949 FLEX SIG - COLON CA SCREENING 1949 LIPID TESTING 1949 HEPATITIS C SCREENING 08/05/1967 DTAP/TDAP/TD VACCINES (1 - Tdap) 1968 PNEUMOCOCCAL VACCINE 50+ (1 of 1 - PCV) 08/10/1999 ZOSTER VACCINE (1 of 2) 08/10/1999 COVID-19 VACCINE ( - 2023-2 5 season) 2023 INFLUENZA VACCINE (#1) 2023 DEPRESSION SCREENING 04/08/2024 Respiratory Syncytial Virus (RSV) Vaccine Pt: or over 60 yrs (1 - 1-dose 75+ series) 2024 HEPATITIS B VACCINE Aged Out No longe r eligible based on patient's age to complete this topic HIB VACCINE Aged Out No longer eligi ble based on patient's age to complete this topic HPV VACCINE Aged Out No longer eligi ble based on patient's age to complete this topic MENINGOCOCCAL (Group B) VACCINE Aged Out No longer eligible based on patient's age to complete this topic MENINGOCOCCAL VACCINE Aged Out No delmy koko eligible based on patient's age to complete this topic
--- OUTSIDE RECORDS SUMMARY | 2024-05-17 10:05 | XMS_ITS | Continuity of Care Document ---
Author Organization [facility] Address [address] [place] [address] [place] [address] Phone Care Team Providers Care Operations Support Professionals Name Role Phone Som Ceballos Unavailable Unavailable Procedures Procedure Date Eye Exam, New Patient Refraction Advance Directives Directive Yes / No Effective Date File Name No Information Encounters Encounter Description Practice Location Reason(s) For Visit Diagnoses Date Provider Providers Copied on Encounter [facility], [address] [place] [address] [address] [place], [place], [id number], [place] tel:[phone] SEC [facility] No Information [address] Lashwantalha [address]. [address], [place], [address], [place]. tel:[phone] Family History Family Member Type Diagnosis Age At Onset No Information Payers Payer name Insurance type Covered green party ID Authoriza tion(s) Medicaid [facility] [id number] Social History Type Description Quantity Date Captured Comments Sex Male Smoking Status No Information Chief Complaint And Reason For Visit No Information Reason For Referral Reason For Referral No Information History Of Present Illness Encounter Date Complaint History Of Prese nt Illness No Information Functional Status Date Functional Assessmen t No Information Instructions Date Instruction Additional Infor mation No Information Assessments Type Assessment Date No Information Patient Care Teams Name Effective Dates (start - stop) Status Members No Information
--- OUTSIDE RECORDS SUMMARY | 2024-05-17 10:05 | XMS_ITS ---
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 Date/Time Encounter Type Encounter Description Reason Provider Source Jan 30, 2024 11:50 AM Outpatient Encounter GENERAL INTERNAL MEDICINE ROX CEJA I[facility] Encounter Template Text not used by [facility] Plan of Treatment: Future Appointments (+ 6 months) and Future Tests (+/- 45 days) The Plan of Treatment section includes future care activities for the patient [facility] This section includes future appointments and future orders which are active, pending or scheduled. Future Appointments This section includes appointments that were scheduled to occur 6 months from the date of the Encounter, up to a maximum of 20 appointments. The data comes from all [place] treatment facilities. Appointment Date/Time Appointment Type Appointme nt Facility Name Apr 17, 2024 01:00 PM AMBULATORY - MEDICINE [facility] Social History: Smoking Status (Most current) and Tobacco Use (All prior to encounter date) This section includes the most current, and the historical, smoking and tobacco- related health factors from the [place] facility where the Encounter took place. Current Smoking Status This section includes the most current smoking, or tobacco-related health factor, from the [place] facility where the Encounter took place. Date/Time Current Smoking Status Comment Demarcus arrieta Feb 24, 2014 01:06 PM QUIT TOBACCO >7 YEARS AGO [facility] Tobacco Use History This section includes a history of the smoking, or tobacco-related health factors, that were collected on or before the date of the Encounter. The data comes from the [place] facility where the Encounter took place. Date/Time Smoking Status/Tobacco Use Comment F alix Feb 24, 2014 01:06 PM QUIT TOBACCO >7 YEARS AGO [facility] Oct 13, 2012 11:29 AM CURRENT TOBACCO USER [facility] Oct 13, 2012 11:29 AM TOBACCO MEDS OFFER ED BUT DECLINED [facility] August 23, 2006 08:26 AM QUIT TOBACCO >7 YEARS AGO [facility] Apr 15, 2001 01:31 PM CURRENT NON-TOBACC O USER-HX OF USE [facility] Advance Directives: All historical and current Section Date Range: From patient's date of to the date document was created. This section includes ALL of a patient's completed or amended [place] Advance and Rescinded Directives. The entries below indicate that a directive exists for the patient, but an actual copy is not included with this document. The data comes from all [facility]. Date Advance Directives Provider Source Apr 27, 2020 ADVANCE DIRECTIVE [facility] Encounter Notes: All associated encounter notes This section contains the clinical notes associated to the Encounter. 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: URGENCY: STATUS: COMPLETED Emergency Notification Intake Date Presenting to the Facility: Jan Method of Contact: Notified from ECR worklist Notification ID: [id number] [facility] Referral #: [id number] Clinical Review [facility] Hospital Name: [facility] Address: City: [place] State: [place] Zip Code: Phone : Community Facility Point of Contact: Name: Phone: Chief complaint: LEG PAIN Primary Diagnosis: Disposition Unknown at time of intake note entry Evaluated and released from ED for: purple area on right knee that was removed with alcohol swab, no injury. Records r/t this episode of care received; sent to [facility] for scanning. /tevin/ ROX CEJA REGISTERED NURSE Signed: 01/30/2024 11:55 ROX CEJA [facility]
--- OUTSIDE RECORDS SUMMARY | 2024-05-17 10:05 | XMS_ITS | Data Portability ---
Author Organization [facility], Main Office Address [address] [place] [address] Care Team Providers Care Drum Tender Name Role Phone GALINA TATE Primary Care Provider Assessment Encounter Date Assessment Date Assessment LastModified by Organization Details LastModified Time 01/29/2023 01/29/2023 This note is dictated and transcribed by [employer]. Septic Technician variances may occur. Despite proofreading, typographical errors may occur. Not available 01/29/2023 14:36:23 Plan of Treatment Reminders Order Date Submit Date Provider Last Modified By Organization Details Last Modified Time Details Appointments None record ed. Lab None record ed. Referral None record ed. Procedures None record ed. Surgeries None record ed. Imaging None record ed. Medication Orders None record ed. Patient Targets Encounter Date Encounter Id Patient Goals Patient Target Last Modified By Organization Details Last Modified Time secondary to bilateral foot amputations patient is recommended to obtain multilayer diabetic shoes and inserts with custom toe Fillers to prevent wounds of the feet. Not available 01/30/2023 12:02:26 Patient InstructionsNo instructions recorded. Reason for Referral None Reported. Results Created Date Observation Date Name Description Value Unit Range Abnormal Flag Note LastModifiedBy Organization Detail LastModifiedTime 08/23/1908/22/2022 XR, urogr am, retro grade No observ ation record ed. [email or web address] [facility] [address] [place], [address], 09/06/2022 17:58:33 Result Notes None recorded. Problems Name Problem SNOMED Code Status Onset Date Resolution Date Notes Provider Name and Address Organization Details Recorded Time Benign prostatic hyperplasi a 099537998 Active 2022 Marcio Shukla MD [address] [address], [place], [address] , [facility] 3 10:26:38 Kidney stone 17206718 Active 2022 Marcio Shukla MD [address] [facility], [facility] [address], [place], [address] , [facility] 3 10:26:42 Vitamin B deficiency 30918924 Active 2022 Pretty dobson, [place] [facility] 3 14:32:15 Contractur e of left knee joint 5557311306073 00 Active 2022 Pretty Constantino null, [place] [facility] 3 14:32:26 Altered mental status 730306751 Active 2022 Pretty Constantino null, [place] [facility] 3 14:32:34 Moderate cognitive impairment 943483876 Active 2022 Pretty Constantino null, [place] [facility] 3 14:32:49 Contractur e of right knee joint 8476750895670 05 Active 2022 Pretty Constantino null, [place] [facility] 3 14:33:00 Diverticul ar disease 444093523 Active 2022 Pretty Constantino null, [place] - [facility] 3 14:33:08 Essential hypertensi on 63668396 Active 2022 Pretty dobson, [place] [facility] 3 14:33:17 Diabetic peripheral neuropathy 105499067 Active 2022 Marcio Avalos DPM [address] [facility], [facility] [address], [place], [address] , [facility] 3 14:35:52 Hyperlipid emia 48481928 Active 2022 Pretty Constantino null, [place] [facility] 3 14:36:18 Multiple joint pain 78727801 Active 2022 Pretty Constantino null[place] [facility] 3 14:36:27 Sepsis 95165503 Active 2022 Pretty Constantino null, [place] [facility] 3 14:36:37 Abnormal gait 10298899 Active 2022 Pretty Dougie null[place] [facility] [place] [facility] 3 14:36:45 Clostridiu m difficile colitis 149073321 Active 2022 Pretty Constantino null[place] [facility] 3 14:36:57 Neuropathy 175898527 Active 2022 Pretty Constantino null, [place] [facility] 3 14:37:07 Constipati on 72194124 Active 2022 Pretty Constantino null, [place] [facility] 3 14:37:16 Muscle weakness 65243689 Active 2022 Pretty Constantino null, [place] [facility] 3 14:37:25 Diarrhea 66849570 Active 2022 Pretty Constantino null[place] [facility] 3 14:37:33 Chronic back pain 911099354 Active 2022 Pretty Constantino null[place] [facility] 3 14:38:27 Dementia 14469275 Active 2022 Pretty Constantino null[place] [facility] 3 14:38:44 Flexion contractur e of the knee 392461050 Active 2022 Marcio Avalos DPM [address] [facility], [address] [address], [place], [address] , [facility] 3 12:02:35 History of amputation of foot 102540848 Active 2022 Marcio Avalos DPM [address] [facility], [facility] [address], [place], [address] , [facility] 3 12:02:44 Problem Notes None recorded. Procedures Surgical History Date Name Laterality Status Provider Name and Address Organization Details Recorded Time 05/23/202 3 Anderson Catheter Removal completed Poonam Cervantes MA [facility] 08/28/2022 10:06:37 Imaging Results Imaging Date Name Status LastModified by Organiz ation Details LastModified Time 08/22/2022 XR, urogram, retrograde completed [email or web address] [facility] [address] [place], [address], 09/06/2022 17:58:33 Procedure Notes None recorded. Medical Equipment None Reported. Allergies Allergen ID Allergen Name Allergen Category Reaction Reaction Severity Criticality Documentation Date Start Date Code Code System Note Provider Name and Address Organization Details Recorded Time 11145 metformin medicatio n Not available Not available Not available 01/29/2023 6809 RxNorm Pretty Constantino [employer] [facility] 14:26:56 76189 glyburide medicatio n Not available Not available Not available 01/29/2023 4815 RxNorm Pretty Constantino [employer] [facility] 14:27:13 71763 lisinopri l medicatio n Not available Not available Not available 01/29/2023 97319 [facility]Norm [facility] 14:27:29 Medications Name Sig Start Date Stop Date Status Note LastModified by Organization Details LastModified Time Santyl 250 unit/gram topical ointment 01/29 completed Not Available Not Available Not Available doxycycline hyclate 100 mg capsule 01/29 completed Not Available Not Available Not Available ofloxacin 0.3 % eye drops active Not Available Not Available Not Available sucralfate 1 gram tablet active Not Available Not Available Not Available metronidazo le 500 mg tablet TAKE 1 TABLET BY MOUTH EVERY 6 HOURS 01/29 completed Not Available Not Available Not Available vancomycin 125 mg capsule TAKE 1 CAPSULE BY MOUTH 4 TIMES A DAY 01/29 completed Not Available Not Available Not Available carvedilol 3.125 mg tablet 01/29 completed Not Available Not Available Not Available ketorolac 0.5 % eye drops active Not Available Not Available Not Available prednisolon e acetate 1 % eye drops,suspe nsion active Not Available Not Available Not Available tamsulosin 0.4 mg capsule active Not Available Not Available Not Available ciprofloxac in 0.3 % eye drops 01/29 completed Not Available Not Available Not Available sulfacetami de sodium 10 % eye drops 01/29 completed Not Available Not Available Not Available baclofen 10 mg tablet active Not Available Not Available No t Available pantoprazol e 40 mg tablet,sylvester yed release active Not Available Not Available Not Available gabapentin 300 mg capsule 01/29 completed Not Available Not Available Not Available mupirocin 2 % topical ointment 01/29 completed Not Available Not Available Not Available gabapentin 100 mg capsule active Not Available Not Available Not Available ergocalcife rol (vitamin D2) 1,250 mcg (50,000 unit) capsule 01/29 completed Not Available Not Available Not Available levofloxaci n 500 mg tablet 01/29 completed Not Available Not Available Not Available amoxicillin 875 mg-potassiu m clavulanate 125 mg tablet 01/29 completed Not Available Not Available Not Available oxycodone 5 mg tablet TAKE 1 TABLET BY MOUTH EVERY 6 HOURS NEEDED FOR BREAKTHRO UGH PAIN 01/29 completed Not Available Not Available Not Available cholestyram ine (with sugar) 4 gram powder for susp in a packet active Not Available Not Available Not Available lactulose 10 gram/15 mL oral solution 01/29 completed Not Available Not Available Not Available Novofine Autocover 30 gauge x 1/3 needle active Not Available Not Available Not Available insulin glargine (U-100) 100 unit/mL (3 mL) subcutaneou s pen active Not Available Not Available Not Available Firvanq 25 mg/mL oral solution 01/29 completed Not Available Not Available Not Available Easy Touch Safety Pen Needle 30 gauge x 5/16 active Not Available Not Available Not Available Vitals Date Recorded Body height Body mass index (BMI) Body weight Provider Name and Address Organization Details Last Updated DateTime 01/29/2023 165.1 cm 32.4 kg/m2 86482.51 g Pretty Constantino [place] [facility] 01/29/2023 14:43:12 Date Recorded Heart rate Respiratory rate Oxygen saturation Oxygen saturation in Arterial blood by Pulse oximetry Systolic blood pressure Diastolic blood pressure Provider Name and Address Organization Details Last Updated DateTime 94 /min 14 /min 97 % 97 % 169 mm[Hg] 99 mm[Hg] Zoey Ortez [facility] 14:31:06 Social History Question Answer Notes LastModified by Organizat ion Details LastModified Time Tobacco Smoking Status Former Smoker Pretty dobson, [facility] 01/29/2023 14:43:37 What Is Your Level Of Alcohol Consumption? Heavy Information not available 01/29/2023 How Many Years Have You Smoked Tobacco? 35 Information not available 01/29/2023 Sex: Unknown Functional Status None recorded. Mental Status None recorded. Family History Nothing Reported. Medical History Condition Response NEUROPATHY Y MENTAL DISORDER/ILLNESS Y BOWEL PROBLEMS Y HYPERTENSION Y HIGH CHOLESTEROL / HYPERLIPIDEMIA Y Past Encounters Encounter ID Performer Location Encounter Start Date Encounter Closed Date Diagnosis/Indication Diagnosis SNOMED-CT Code Diagnosis ICD10 Code Diagnosis Note [id number] Marcio Shukla MD [facility] [place] [address] [facility], [address] [place] [address] 08/28/2022 09:32:55 08/28/2022 10:35:04 [id number] Marcio Avalos DPM [facility] [place] [address] [place] [address], [facility] [address] [place] [address] 01/29/2023 14:23:09 01/30/2023 13:52:10 Diabetic peripheral neuropathy 592976593 E11.40 Patient educated on neuropathy , diabetes, diabetic diet, and daily foot exams. Patient is to check feet daily for new wounds, blisters, redness to prevent infection and ulceration s to the feet. Patient will return to clinic in 3 months for diabetic foot workup.Rx diabetic shoes and inserts History of amputation of foot 695780626 Z89.439 bilateral feet Flexion co ntracture of the knee 556122293 M24.569 recommend follow-up with orthopedic Health Concerns Section Related Observation LastModified by Organization Detai ls LastModified Time None Recorded Concern Status LastModified by Organization Details LastModified Time None Recorded Advance Directives Directive None Recorded Payers Encounter Date Sequence Insurance Name Policy Number Policy Maldonado Covered Member ID Maldonado Member ID Guarantor Name 08/28/2022 1 [place] [employer] [facility] [employer] Maurice Moe [id number] Maurice Moe 08/28/2022 1 [place] Maurice Moe [id number] Maurice Moe 01/29/2023 1 [place] [facility] Maurice Moe [id number] Maurice Moe Notes Date Note Type Note Provider Name and Address Organization Details Recorded Time 01/29/2023 text/html . Patient is a 72-year-old male diabetic who presents to the office with complaints bilateral feet amputations. Patient states that he was living at home with his and had a rat problem. Patient states that he developed wounds and the mice wound eat his toes. Patient presents with a skills worker who states this is the story they have been told is uncertain whether not this is completely true. Patient has bilat all TMA amputation needs to which he states he had performed and 7 months ago while at the [place]. Patient now is living in a snf facility with his . Patient denies any other complaints. Marcio Avalos DPM [address] [facility], [facility] [address], [place], [address], [place] [facility] [employer] 01/30/2023 12:02:57
--- OUTSIDE RECORDS SUMMARY | 2024-05-17 10:05 | XMS_ITS | Data Portability ---
Author Organization [facility], [facility] Address [address] [place] [address] Care Team Providers Care Tannery Worker Name Role Phone [facility] OTHER [phone] Assessment Encounter Date Assessment Date Assessment LastModified by Organization Details LastModified Time 06/08/2022 06/08/2022 Medically stable for discharge to community tomorrow to his home. pt has follow up apt with pcp. Family provides transportation to/from doctors appointments. 30 day supply of medications not needed. No DME needed. Time spent on discharge <30 minutes. [email or web address] Not available 06/08/2022 21:10:25 Plan of Treatment Reminders Order Date Submit Date Provider Last Modified By Organization Details Last Modified Time Details Appointments None record ed. Lab None record ed. Referral None record ed. Procedures None record ed. Surgeries None record ed. Imaging None record ed. Medication Orders None record ed. Patient TargetsNo targets recorded. Patient InstructionsNo instructions recorded. Reason for Referral None Reported. Problems Name Problem SNOMED Code Status Onset Date Resolution Date Notes Provider Name and Address Organization Details Recorded Time Osteomyelitis 37911172 Active 2022 AGATHA RIZVI APRN [address], [place], [phone], [facility] 3 17:00:27 Type 2 diabetes mellitus 79214440 Active 2022 AGATHA RIZVI APRN [address], [place], [phone], [facility] 3 17:00:33 Clostridium difficile colitis 420406234 Active 2022 AGATHA RIZVI APRN [address], [place], [phone], [facility] 3 17:00:39 Hypertensive disorder 56021698 Active 2022 AGATHA RIZVI APRN [address], [place], [phone], [facility] 3 17:00:45 Neuropathy 012586218 Active 2022 AGATHA RIZVI APRN [address], [place], [phone], [facility] 3 17:00:54 Problem Notes None recorded. Medical Equipment None Reported. Medications Name Sig Start Date Stop Date Status Note LastModified by Organization Details LastModified Time insulin glargine (U-100) 100 unit/mL subcutaneous solution active Not Available Not Available Not Available vancomycin 125 mg capsule active Not Available Not Available N ot Available pantoprazole 40 mg tablet,delayed release active Not Available Not Available Not Available gabapentin 300 mg capsule active Not Available Not Available N ot Available Vitamin D2 1,250 mcg (50,000 unit) capsule active Not Available Not Available Not Available doxycycline hyclate 100 mg tablet active Not Available Not Available Not Available amoxicillin 875 mg-potassium clavulanate 125 mg tablet active Not Available Not Availabl e Not Available Vitals Date Recorded Heart rate Respiratory rate Body temperature Body height Body mass index (BMI) Body weight Oxygen saturation Oxygen saturation in Arterial blood by Pulse oximetry Systolic blood pressure Diastolic blood pressure Provider Name and Address Organization Details Last Updated DateTime 3 88 /min 18 /min 97.6 [degF] 170.18 cm 24.6 kg/m2 19626 g 98 % 98 % 111 mm[Hg] 60 mm[Hg] AGATHA RIZVI APRN [address], [place], [phone], [facility] 3 16:56:30 Date Recorded Body height Heart rate Respiratory rate Body temperature Body mass index (BMI) Body weight Oxygen saturation Oxygen saturation in Arterial blood by Pulse oximetry Systolic blood pressure Diastolic blood pressure Provider Name and Address Organization Details Last Updated DateTime 3 170.18 cm 86 /min 18 /min 97.8 [degF] 24.6 kg/m2 88787 g 96 % 96 % 132 mm[Hg] 76 mm[Hg] AGATHA RIZVI APRN [address], [place], [address], [facility] 3 17:30:11 Date Recorded Body height Heart rate Respiratory rate Body temperature Body mass index (BMI) Body weight Oxygen saturation Oxygen saturation in Arterial blood by Pulse oximetry Systolic blood pressure Diastolic blood pressure Provider Name and Address Organization Details Last Updated DateTime 3 170.18 cm 88 /min 18 /min 97.8 [degF] 24.6 kg/m2 34836 g 96 % 96 % 127 mm[Hg] 72 mm[Hg] AGATHA RIZVI APRN [address], [place], [phone], [facility] 3 16:17:39 Date Recorded Body height Heart rate Respiratory rate Body temperature Body mass index (BMI) Body weight Oxygen saturation Oxygen saturation in Arterial blood by Pulse oximetry Systolic blood pressure Diastolic blood pressure Provider Name and Address Organization Details Last Updated DateTime 3 170.18 cm 80 /min 18 /min 97.8 [degF] 24.6 kg/m2 26802 g 96 % 96 % 122 mm[Hg] 70 mm[Hg] AGATHA RIZVI APRN [address], [place], [address], [facility] 3 21:00:56 Social History None recorded. Functional Status None recorded. Mental Status None recorded. Family History Nothing Reported. Medical History No medical history recorded. Past Encounters Encounter ID Performer Location Encounter Start Date Encounter Closed Date Diagnosis/Indication Diagnosis SNOMED-CT Code Diagnosis ICD10 Code Diagnosis Note [id number] RADHA HERNANDEZ [employer] ([place] [address]) [address] [place] [phone] 05/31/2022 15:03:03 06/01/2022 12:26:37 Type 2 diabetes mellitus 45761893 E11.621 Z79.4 lantus 10 units dailyaccu checks qid Osteomyelitis 49249448 M 86.[address] [facility] Neuropathy 842228776 G62 .9 gabapentin 300 mg tid Hypertensive disorder 38 640391 I10 stable Clostridiu m difficile colitis 559883365 A04.72 continue : augmentin, doxycyclin e, and vancomycin til 06/26/22 [id number] AGATHA RIZVI [facility] [employer] (DO [place] USE, [place] [address]) [address] [facility] [place] [address] 06/04/2022 16:56:43 06/05/2022 12:22:32 Hypertensive disorder 86381316 I10 stable Clostridiu m difficile colitis 160218619 A04.72 continue : augmentin, doxycyclin e, and vancomycin til 06/26/22 Neuropathy 745290825 G62 .9 gabapentin 300 mg tid Osteomyelitis 04156258 M 86.[address] ojeda wound care [id number] AGATHA RIZVI [facility] [employer] (DO [place] [address]) [address] [place] [phone] 06/06/2022 14:38:01 06/06/2022 17:51:43 Type 2 diabetes mellitus 48747988 E11.621 Z79.4 lantus 10 units dailyaccu checks qid Osteomyelitis 61068202 M 86.[address] [facility] wound [facility] Neuropathy 116562871 G62 .9 gabapentin 300 mg tid Hypertensive disorder 38 383421 I10 stable [id number] AGATHA RIZVI [facility] [employer] (DO [place], [place] [address]) [address] [place] [phone] 06/08/2022 15:42:58 06/11/2022 12:21:39 Type 2 diabetes mellitus 91699663 E11.621 Z79.4 lantus 10 units dailyaccu checks qid.-30 day supply given follow up with pcp Neuropathy 011349540 G62 .9 gabapentin 300 mg tid-30 day supply given follow up with pcp Clostridiu m difficile colitis 421765057 A04.72 continue : augmentin, doxycyclin e, and vancomycin til 06/26/22-30 day supply given follow up with pcp Hypertensive disorder 38 731077 I10 [facility] Concerns Section Related Observation LastModified by Organization Detai ls LastModified Time None Recorded Concern Status LastModified by Organization Details LastModified Time None Recorded Advance Directives Directive None Recorded Payers Encounter Date Sequence Insurance Name Policy Number Policy Maldonado Covered Member ID Maldonado Member ID Guarantor Name 05/31/2022 1 *SELF PAY* Ed wright Moe 06/04/2022 1 *SELF PAY* Ed wright Moe 06/06/2022 1 *SELF PAY* Ed wright [facility] 06/08/2022 1 *SELF PAY* Ed wright [facility] Notes Date Note Type Note Provider Name and Address Organization Details Recorded Time 05/31/2022 text/html Today's visit is medically necessary for hospital transition of care to a care home setting to review current acute and chronic comorbidities, perform medication reconciliation, review imaging and lab results, and ensure coordination of care is maintained. 71 year old wm here for skilled care for cdiff after multiple antibiotics due to osteomyelitis in bilateral feet. multiple digit amputations. other pmh: essential hypertension, type 2dm, hyperlipidemia, and divirticulitis. pt has been a little agitated with staff. states no reason for him to be on so much medicine. seems to be confused when getting insulin and accu checks. vss. no distress. states he uses a walker for ambulation. AGATHA RIZVI APRN [address], [place], [phone], [facility] 05/31/2022 17:03:25 06/04/2022 text/html Today's visit is medically necessary for hospital transition of care to a care home setting to review current acute and chronic comorbidities, perform medication reconciliation, review imaging and lab results, and ensure coordination of care is maintained. 71 year old wm here for skilled care for cdiff after multiple antibiotics due to osteomyelitis in bilateral feet. multiple digit amputations. other pmh: essential hypertension, type 2dm, hyperlipidemia, and divirticulitis. seen today in his room no distress. refused his c diff antibiotics a few times over the weekend. did take it this morning. on todays visit pt states he doesnt know why he needs ti when he isnt have lose stool anymoreexplained to pt importance of finsihed meds. AGATHA RIZVI APRN [address], [place], [phone], [employer] [facility] 06/04/2022 17:33:30 06/06/2022 text/html Today's visit is medically necessary for hospital transition of care to a care home setting to review current acute and chronic comorbidities, perform medication reconciliation, review imaging and lab results, and ensure coordination of care is maintained. 71 year old wm here for skilled care for cdiff after multiple antibiotics due to osteomyelitis in bilateral feet. multiple digit amputations. other pmh: essential hypertension, type 2dm, hyperlipidemia, and diverticulitis. seen today in his room no distress. nursing progress notes, lab and medication records reviewed. dc tomorrow. AGATHA RIZVI APRN [address], [place], [phone], [facility] [employer] [facility] 06/06/2022 16:18:43 06/08/2022 text/html Today's visit is medically necessary for patient discharge. Mr. Moe comes to [facility] because he required assistance from nursing while remaining in isolation for c diff. Patient was a high risk for falls and requires close monitoring of vital signs. Patient received care home services in order to maximize rehab potential, function, and safety. Pt feels confident to go home and continue regaining his strength and independence. Mr. Moe came to [facility] after being hospitalized for osteomyelitis and then being after treated with multiple antibiotics tested postive for cdiff and complete treated here at may. pmh: essential hypertension, type 2dm, hyperlipidemia, and diverticulitis. Medically stable for discharge to community tomorrow to his home. pt has follow up apt with pcp. Family provides transportation to/from doctors appointments. 30 day supply of medications not needed. No DME needed. Time spent on discharge <30 minutes. AGATHA RIZVI APRN [address], [place], [phone], [facility] [employer] [facility] 06/08/2022 21:12:47
--- OUTSIDE RECORDS SUMMARY | 2024-05-17 10:05 | XMS_ITS | Encounter Summary ---
Author Name [facility] Organization [facility] Address [address] [place] [address] Care Team Providers Care Veterinary Practice Manager Name Role Phone DAREN MANN Primary Care [...] PART A August 06, 2014 PART A [id number] ELI BACH FLAVIO PATIENT MEDICARE (WNR) MEDICARE (M) PART B August 06, 2014 PART B [id number] ELI BACH PATIENT MEDICARE (WNR) MEDICARE (M) PART A August 06, 2014 PART A [id number] ELI BACH PATIENT Selected Encounter This section includes the information on record at [place] for the Encounter. Date/Time Encounter Type Encounter Description Reason Pro vider Source Apr 14, 2024 11:27 AM Outpatient Encounter ADMIN PAT ACTIVTIES (MASNONCT) IHE Encounter Template Text not used by [place] Plan of Treatment: Future Appointments (+ 6 months) and Future Tests (+/- 45 days) The Plan of Treatment section includes future care activities for the patient from all [place] treatmentfacilities. This section includes future appointments and future orders which are active, pending or scheduled. Future Appointments This section includes appointments that were scheduled to occur 6 months from the date of the Encounter, up to a maximum of 20 appointments. The data comes from all [place] treatment facilities. Appointment Date/Time Appointment Type Appointme nt Facility Name Apr 17, 2024 01:00 PM [facility] Social History: Smoking Status (Most current) and Tobacco Use (All prior to encounter date) This section includes the most current, and the historical, smoking and tobacco- related health factors from the [place] facility where the Encounter took place. Current Smoking Status This section includes the most current smoking, or tobacco-related health factor, from the [place] facility where the Encounter took place. Date/Time Current Smoking Status Comment Demarcus ity Apr 27, 2020 10:00 AM VA-TOBACCO FORMER USER [facility] Tobacco Use History This section includes a history of the smoking, or tobacco-related health factors, that were collected on or before the date of the Encounter. The data comes from the [place] facility where the Encounter took place. Date/Time Smoking Status/Tobacco Use Comment F acility Apr 27, 2020 10:00 AM [place]-TOBACCO QUIT 1 TO < 5 YRS [facility] Advance Directives: All historical and current Section Date Range: From patient's date of to the date document was created. This section includes ALL of a patient's completed or amended [place] Advance and Rescinded Directives. The entries below indicate that a directive exists for the patient, but an actual copy is not included with this document. The data comes from all [facility]. Date Advance Directives Provider Source Apr 27, 2020 ADVANCE DIRECTIVE BYRON WRIGHT [facility] Encounter Notes: All associated encounter notes This section contains the clinical notes associated to the Encounter. Date/Time Encounter Note(s) Provider Source Apr 14, 2024 11:28 AM NURSING NOTE: LOCAL TITLE: TRAVELING/RELOCATING [facility] COORDINATOR NOTE STANDARD TITLE: NURSING NOTE DATE OF NOTE: APR 14, 2024@11:28 ENTRY DATE: APR 14, 2024@11:28:16 AUTHOR: JOSEFA PIZARRO EXP COSIGNER: URGENCY: STATUS: COMPLETED Clinical review notes permanent relocation and has requested to establish Primary Care @ [facility] on 04/17/24 . Unassign [facility] after care est. Actionable alert for permanent relocation approved at this time in [facility] Web. /es/ JOSEFA PIZARRO MSN, RN Signed: 04/14/2024 11:28 JO[facility]ARRO [facility]
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
--- OUTSIDE RECORDS SUMMARY | 2024-05-17 10:06 | XMS_ITS | Referral Summary ---
Author Organization [facility] Address [address] [place] [address] Care Team Providers Care Family Assistant Name Role Phone Unavailable Primary Care Provider Unavailabl e Source Comments [facility],non-owned Affiliates and Associated Physician Practices is amultiple site organization consisting of ambulatory clinics and hospital sitesin [place], [place], [place] and [place]. This disclosure is being madepursuant to the Care Everywhere program and may not contain all information available regarding this patient. Last updated 17.[facility] [employer] Allergies Active Allergy Reactions Criticality Noted Date [...] Comments Blood Pressure 164/78 05/01/2014 2:24 AM TEACHER OF THE EMOTIONALLY DISTURBED Pulse 90 05/01/2014 2:24 AM TEACHER OF THE EMOTIONALLY DISTURBED Temperature 36.9 C (98.5 F) 05/01/2014 12:01 AM TEACHER OF THE EMOTIONALLY DISTURBED Respiratory Rate - - Oxygen Saturation 100% 05/01/2014 2:24 AM TEACHER OF THE EMOTIONALLY DISTURBED Inhaled Oxygen Concentration - - Weight 99.8 kg (220 lb) 05/01/2014 12:01 AM TEACHER OF THE EMOTIONALLY DISTURBED Height 170.2 cm (5' 7 ) 05/01/2014 12:01 AM TEACHER OF THE EMOTIONALLY DISTURBED Body Mass Index 34.46 05/01/2014 12:01 AM TEACHER OF THE EMOTIONALLY DISTURBED Plan of Treatment Not on file
[2024-05-17 10:13] LABS: Prothrombin Time 13.3 Seconds (11.1-14.7)
[2024-05-17 10:14] LABS: Partial Thromboplastin Time 28.3 Seconds (22.3-36.8)
[2024-05-17 10:31] LABS: Appearance Urine Turbid (Clear); Color Urine Red (Yellow)
[2024-05-17 10:32] LABS: Add Urine Microscopic? YES; Blood Urine 4+ (Negative)
[2024-05-17 10:33] LABS: RBC Urine >100 /hpf (0-2); WBC Urine Unable to determine /hpf (0-3)
[2024-05-17] MEDS: LIDOCAINE 2% GEL UROJET 10 ML PKG (11:00)
[2024-05-17] MEDS: LACTATED RINGERS 1,000 ML 999 ML IV CONT (11:00)
[2024-05-17 12:38] LABS: Hemoglobin 12.6 g/dL (14.0-18.0)
--- NOTE | 2024-05-17 12:45 | PC.NURSE ---
3800 ml bloody output drained from pierce bag. CBI continues. Only one small clot noted when draining bag. Pt denies any further needs at this time. Reports he is comfortable and watching TV. Call light in reach.
--- NOTE | 2024-05-17 13:12 | PM.IMHP ---
H&P: HPI History of Present Illness Date/Time: 05/17/24 13:12 Chief Complaint: bloody urine Narrative: 73-year-old male past medical history of dementia diabetes presented to the ER on account of blood in urine. Patient denies any prior history prostate problems of bloody urine however noted episode since yesterday presented to be due to persistent symptoms. Denies any trauma, no lightheadedness, no chest pain shortness for breath no dysuria not on blood thinners. ER evaluation notable for blood pressure 189/100 ordered stable within normal limits. Labs notable for WBC 10.5, hemoglobin 12.5, INR is 1.0 APTT 28.3 UA right urine: Which her BC over 100. CT abdomen pelvis showed findings suggestive of hemorrhagic cystitis with the couple foci of suspected active extravasation into the lumen of the bladder, 1.4 cm indeterminate hypodense attenuation left renal lesion most likely proteinaceous hemorrhagic cyst although differential includes early renal cell carcinoma. Urology was consulted prior to admission. Review of Systems Review of Systems: All Other systems reviewed and negative except as noted in history above. [facility] Social History Social History Smoking packs per day: 3 Smoking cigarettes per day: 60.0 Years smoked: 20 Smoking pack-years: 60.00 Smoking status: Former smoker Tobacco type: cigarettes Alcohol intake: former Drinks per week: 120 Substance use: never Substance use type: does not use Last use: 3-4 cases per week Do You Feel Safe in your Home?: Yes Lack of Transportation: No Lack of Food: Never True Current Housing: I Have Housing Concerned About Future Housing: No Difficulty Paying Gas/Electric Bills: No Difficulty Paying for Meds: No Currently Unemployed: No Education: High School Diploma/GED Difficulty w/ Childcare or Family Care: No Spiritual care concerns: No Meds Home Medications and Allergies Allergies Allergy/AdvReac Type Severity Reaction Status Date / Time No Known Allergies Allergy Verified 05/17/24 12:33 Vital Signs Vital Signs - 24 hr 05/17/24 09:22 05/17/24 09:46 05/17/24 11:01 Temperature 97.9 F 97.9 F 97.9 F Pulse Rate 97 93 88 Respiratory Rate 18 18 16 Blood Pressure 189/100 H 119/70 184/91 H Pulse Oximetry 97 98 100 Oxygen Delivery Room Air Exam Narrative: General: alert and comfortable Eyes: EOMI, PERRLA ENNT External ears normal, Neck is supple, no masses, Respiratory systems: Clear to auscultation Cardiovascular S1, S2, normal rhythm, no murmur, rub, or gallop; no thrill or palpable murmurs on palpation. Gastrointestinal: soft, non-tender, and non-distended abdomen with no masses; BS present Skin: no rash, lesions, ulcerations, subcutaneous nodules or induration Musculoskeletal: no abnormality and no tenderness, normal ROM Neurologic: Alert and oriented x3, non focal Mental Status Exam: normal affect : CBI in place draining bloody urine H&P: Results Labs Labs: Short CBC 05/17/24 05/17/24 Range/Units 09:36 12:29 WBC 10.5 H (4.5-10.0) K/mm3 Hgb 12.5 L 12.6 L (14.0-18.0) g/dL Hct 41.1 L 39.0 L (42.0-52.0) % Plt Count 207 (150-375) k/mm3 BMP 05/17/24 09:36 Sodium 141 Potassium 4.2 Chloride 103 Carbon Dioxide 31 H BUN 15 Creatinine 0.80 Glucose 135 H Calcium 8.6 Liver Function 05/17/24 Range/Units 09:36 Total Bilirubin 0.6 (0.2-1.3) mg/dL AST 25 (17-59) U/L ALT 18 (6-50) U/L Alkaline Phosphatase 92 (38-126) U/L Albumin 3.9 (3.5-5.1) g/dL Urine 05/17/24 Range/Units 09:36 Urine Color Red H (Yellow) Urine Appearance Turbid H (Clear) Urine pH TNP Ur Specific [place] 1.010 (1.010-1.020) Urine Protein TNP Urine Glucose (UA) TNP Assessment and Plan Assessment and plan (1) Gross hematuria: Code(s): R31.0 - Gross hematuria Status: Acute Plan Hemorrhagic cystitis Patient presented with sudden onset bloody urine, denies any urinary symptoms. CT abdomen and pelvis showed is emerging cystitis Continue CBI, urology consulted. Culture of the Rocephin started. Type 2 diabetes Sliding scale insulin with Accu-Cheks, adjust with clinical course. Hypertension blood pressure is elevated Blood pressure 189/100 Started on lisinopril and amlodipine Monitor nodules with clinical course. DVT prophylaxis SCDs, no anticoagulation due to hematuria. Patient is full code. Surrogate decision maker is Sofi Moe. Hospitalist [facility] Advance Care Plan I have confirmed that the patient's Advanced Care Plan is present, code status is documented, or surrogate decision maker is listed in patient medical record.: Yes Medication Reconciliation I have utilized all available resources to obtain, update and review the patients current medications (includes all prescriptions, OTC, herbals, cannabis, and nutritional supplements).: Yes
[2024-05-17] MEDS: SODIUM CHLORIDE 0.9% IV 1,000 ML 125 ML IV CONT ×2 (14:17→22:35)
[2024-05-17] MEDS: lisinopriL 5 MG TABLET PO (14:39)
[2024-05-17 15:22] LABS: Glucose Point of Care 131 mg/dl (65-105)
--- NOTE | 2024-05-17 16:48 | PC.NURSE ---
Pt had BM, cleaned up by 2 RN's. Clean linens and depends applied. Pt just got admission bed assigned, pt updated. Denies any further needs at this time.
--- NOTE | 2024-05-17 17:02 | PC.NURSE ---
This RN received report from the [facility].
--- NOTE | 2024-05-17 17:07 | P.CONUR_ITS ---
Assessment and Plan Assessment and plan (1) Gross hematuria: Code(s): R31.0 - Gross hematuria Status: Acute Assessment and Plan: Continue CBI overnight No plans for OR now - OK for diet Treat for possible UTI - await culture results Flush catheter as needed for clots Plan Bladder mass - possibly secondary to UTI - await culture results - will need outpatient cystsocopy if hematuria clears Urology Consult Note HPI Date Seen: 05/17/24 Requesting Physician: Alan Elliott MD Primary Care Provider: Ian Grubbs, Consult Narrative Narrative: Maurice Moe is a 73 year old male who presented to the ER with hematuria. CT scan showed bladder wall thickening. CBI was started. The urine has been running clear on the CBI. He reports wanting to go home soon. Review of Systems 2 Review of Systems: All systems reviewed & are unremarkable except as noted in HPI and below PMFSH Social History Social History Smoking packs per day: 3 Smoking cigarettes per day: 60.0 Years smoked: 20 Smoking pack-years: 60.00 Smoking status: Former smoker Tobacco type: cigarettes Alcohol intake: former Drinks per week: 120 Substance use: never Substance use type: does not use Last use: 3-4 cases per week Do You Feel Safe in your Home?: Yes Lack of Transportation: No Lack of Food: Never True Current Housing: I Have Housing Concerned About Future Housing: No Difficulty Paying Gas/Electric Bills: No Difficulty Paying for Meds: No Currently Unemployed: No Education: High School Diploma/GED Difficulty w/ Childcare or Family Care: No Spiritual care concerns: No Meds Home Medications and Allergies Home Medications ?Medication ?Instructions ?Recorded ?Confirmed ?Type Lactobacillus acidophilus 100 mg PO BID 05/17/24 05/17/24 History (Acidophilus capsule) acetaminophen 325 mg capsule 650 mg PO Q6H PRN pain 05/17/24 05/17/24 History atorvastatin 40 mg tablet 40 mg PO QPM 05/17/24 05/17/24 History baclofen 10 mg tablet 10 mg PO DAILY 05/17/24 05/17/24 History bismuth subsalicylate 525 mg/15 mL 1,050 mg PO BID PRN diarrhea 05/17/24 05/17/24 History oral suspension (Kaopectate Ex Str (bismuth ss)) cholecalciferol (vitamin D3) 25 25 mcg PO DAILY 05/17/24 05/17/24 History mcg (1,000 unit) capsule (Vitamin D3) cholestyramine (with sugar) 4 gram 1 ea PO DAILY 05/17/24 05/17/24 History powder for susp in a packet cilostazol 100 mg tablet 100 mg PO BID 05/17/24 05/17/24 History dapagliflozin propanediol 10 mg 10 mg PO DAILY 05/17/24 05/17/24 History tablet (Farxiga) diclofenac sodium 1 % topical gel 2 g topical BID 05/17/24 05/17/24 History gabapentin 100 mg capsule 100 mg PO TID 05/17/24 05/17/24 History insulin glargine 100 unit/mL (3 20 unit subcut QPM 05/17/24 05/17/24 History mL) subcutaneous pen (Lantus Solostar U-100 Insulin) lactase 3,000 unit tablet (Dairy 6,000 unit PO QID PRN lactose 05/17/24 05/17/24 History Relief) intolerance loperamide 2 mg capsule 2 mg PO Q6H PRN loose stool 05/17/24 05/17/24 History (Anti-Diarrheal (loperamide)) multivitamin (Daily Multi-Vitamin 1 tablet PO DAILY 05/17/24 05/17/24 History tablet) ondansetron HCl 4 mg tablet 4 mg PO Q6H PRN nausea and vomiting 05/17/24 05/17/24 History pantoprazole 40 mg tablet,delayed 40 mg PO Q12H 05/17/24 05/17/24 History release sucralfate 1 gram tablet 1 g PO BID 05/17/24 05/17/24 History tamsulosin 0.4 mg capsule 0.4 mg PO DAILY 05/17/24 05/17/24 History trazodone 50 mg tablet 25 mg PO DAILY 05/17/24 05/17/24 History venlafaxine 75 mg tablet 75 mg PO DAILY 05/17/24 05/17/24 History vitamin B12 500 mcg-folic acid 400 1 tablet PO DAILY 05/17/24 05/17/24 History mcg tablet Allergies Allergy/AdvReac Type Severity Reaction Status Date / Time glyburide Allergy Unknown Unknown Verified 05/17/24 15:16 lisinopril Allergy Unknown Unknown Verified 05/17/24 15:16 metformin Allergy Unknown Unknown Verified 05/17/24 15:16 Vital Signs Vital Signs - 24 hr 05/17/24 09:22 05/17/24 09:46 05/17/24 09:47 Temperature 36.6 C 36.6 C Pulse Rate 97 93 91 Respiratory Rate 18 18 20 Blood Pressure 189/100 H 119/70 Pulse Oximetry 97 98 Oxygen Delivery Room Air 05/17/24 10:57 05/17/24 11:01 05/17/24 11:04 Temperature 36.6 C Pulse Rate 88 Respiratory Rate 16 Blood Pressure 184/91 H Pulse Oximetry 97 100 98 Oxygen Delivery 05/17/24 11:17 05/17/24 11:51 05/17/24 12:00 Temperature Pulse Rate 85 92 Respiratory Rate 12 14 Blood Pressure Pulse Oximetry 98 95 95 Oxygen Delivery 05/17/24 12:01 05/17/24 12:15 05/17/24 12:31 Temperature Pulse Rate 92 92 92 Respiratory Rate 13 15 20 Blood Pressure 165/77 H 177/82 H Pulse Oximetry 97 97 98 Oxygen Delivery 05/17/24 12:32 05/17/24 12:49 05/17/24 13:00 Temperature Pulse Rate 107 H 88 90 Respiratory Rate 20 20 14 Blood Pressure Pulse Oximetry 96 97 98 Oxygen Delivery 05/17/24 13:01 05/17/24 13:23 Temperature Pulse Rate 89 90 Respiratory Rate 14 20 Blood Pressure 163/86 H 163/86 H Pulse Oximetry 95 96 Oxygen Delivery Exam 2 Narrative: he is resting comfortably : Male General Exam: Yes normal external exam Urinary Catheter: Urinary Catheter: patent and draining and other (CBI running) Neuro: Sensory Exam: normal sensation Psych: Speech and movement: Normal speech and movement present Affect: n ormal affect Results Labs 05/17/24 12:29 05/17/24 09:36 Labs: Short CBC 05/17/24 05/17/24 Range/Units 09:36 12:29 WBC 10.5 H (4.5-10.0) K/mm3 Hgb 12.5 L 12.6 L (14.0-18.0) g/dL Hct 41.1 L 39.0 L (42.0-52.0) % Plt Count 207 (150-375) k/mm3 BMP 05/17/24 09:36 Sodium 141 Potassium 4.2 Chloride 103 Carbon Dioxide 31 H BUN 15 Creatinine 0.80 Glucose 135 H Calcium 8.6 Liver Function 05/17/24 Range/Units 09:36 Total Bilirubin 0.6 (0.2-1.3) mg/dL AST 25 (17-59) U/L ALT 18 (6-50) U/L Alkaline Phosphatase 92 (38-126) U/L Albumin 3.9 (3.5-5.1) g/dL Urine 05/17/24 Range/Units 09:36 Urine Color Red H (Yellow) Urine Appearance Turbid H (Clear) Urine pH TNP Ur Specific [place] 1.010 (1.010-1.020) Urine Protein TNP Urine Glucose (UA) TNP
--- NOTE | 2024-05-17 17:41 | ADMGEN ---
This patient, Maurice Moe, was admitted to IMU Room 207-01 @ 1741. Patient/family oriented to hospital policies and general routines including ID bracelet, bed and alarms, visiting hours, pain management, procedures, bathroom and other care routines, personal items, smoking policy, room service/diet, and visiting hours. Information on how to activate the Rapid Response Team has been discussed. Patient/Family are encouraged to report perceived risks to care and to ask questions if they do not understand what they are told or what they should do.
[2024-05-17 17:57] LABS: Glucose Point of Care 126 mg/dl (65-105)
[2024-05-17 18:48] LABS: Hematocrit 39.5 % (42.0-52.0); Hemoglobin 12.9 g/dL (14.0-18.0)
[2024-05-17 20:44] LABS: Glucose Point of Care 128 mg/dl (65-105)
[2024-05-18] VITALS (15 sets, daily range): BP systolic 143–221; BP diastolic 81–117; PULSE 80–122; RESP 18–22; TEMP 36.4–36.8; O2SAT 95–98
--- NOTE | 2024-05-18 03:58 | PC.NURSE ---
Spoke with doctor regarding b/p. Patient denies symptoms. New orders received.
[2024-05-18] MEDS: LABETALOL HCL INJ 100 MG/20 ML VIAL 20 MG IV PUSH (04:28)
[2024-05-18] MEDS: carvediloL 12.5 MG TABLET PO ×2 (04:29→20:48)
[2024-05-18 05:05] LABS: Basophils Absolute Auto 0.1 K/mm3 (0.0-0.1); Basophils Percent Auto 0.4 % (0.2-1.2); Eosinophils Absolute Auto 0.1 K/mm3 (0-0.3); Eosinophils Percent Auto 0.6 % (0-4.4); Hematocrit 41.3 % (42.0-52.0); Hemoglobin 13.4 g/dL (14.0-18.0); Immature Granulocyte Absolute 0.08 K/mm3 (0.00-0.031); Immature Granulocyte Percent A 0.5 % (0-0.5); Lymphocytes Absolute Auto 3.08 K/mm3 (0.9-3.2); Mean Corpuscular HGB Conc 32.4 g/dl (32-36); Mean Corpuscular Hemoglobin 28.2 pg (26-34); Mean Corpuscular Volume 86.9 fl (80-100); Mean Platelet Volume 10.3 fl (7.4-10.4); Monocytes Absolute Auto 1.4 K/mm3 (0.1-0.6); Monocytes Percent Auto 8.5 % (2.6-8.5); Neutrophils Absolute Auto 11.5 K/mm3 (1.3-6.7); Platelet Count Result 240 k/mm3 (150-375); Red Blood Count 4.75 M/mm3 (4.6-6.20); Red Cell Distribution Width 14.5 % (11.5-14.5); White Blood Count 16.2 K/mm3 (4.5-10.0)
[2024-05-18 05:16] LABS: Alanine Aminotransferase 20 U/L (6-50); Albumin Level 4.1 g/dL (3.5-5.1); Alkaline Phosphatase 111 U/L (38-126); Anion Gap 13 mmol/L (4-12); Aspartate Amino Transferase 24 U/L (17-59); Bilirubin,Total 0.8 mg/dL (0.2-1.3); Blood Urea Nitrogen 13 mg/dL (9-20); Calcium 8.8 mg/dL (8.4-10.2); Carbon Dioxide 24 mmol/L (22-30); Chloride 105 mmol/L (98-107); Estimated CRCL calculation 77 ml/min; Estimated Glomerular Filt Rate > 60; Glucose 180 mg/dL (65-110); Potassium 4.3 mmol/L (3.4-5.0); Sodium 142 mmol/L (137-145)
[2024-05-18] MEDS: SODIUM CHLORIDE 0.9% IV 1,000 ML 125 ML IV CONT ×2 (06:52→15:57)
[2024-05-18 07:39] LABS: Glucose Point of Care 194 mg/dl (65-105)
--- NOTE | 2024-05-18 08:12 | WPDUROPN2 ---
Progress Note: A&P Assessment and Plan (1) Gross hematuria: Code(s): R31.0 - Gross hematuria Status: Acute Plan gross hematuria resolved. Can stop CBI remove Anderson at discretion of primary team urine culture pending intermediate left renal mass. Radiology suggests contrast enhanced CT or MRI. Hospitalist to arrange will need outpatient follow-up with Urology for cystoscopy Subjective Subjective Date/Time Seen: 05/18/24 08:12 Objective Data Vital Signs Vital Signs: Vital Signs - 24 hr 05/17/24 09:22 05/17/24 09:46 05/17/24 09:47 Temperature 97.9 F 97.9 F Pulse Rate 97 93 91 Respiratory Rate 18 18 20 Blood Pressure 189/100 H 119/70 Pulse Oximetry 97 98 Oxygen Delivery Room Air 05/17/24 10:57 05/17/24 11:01 05/17/24 11:04 Temperature 97.9 F Pulse Rate 88 Respiratory Rate 16 Blood Pressure 184/91 H Pulse Oximetry 97 100 98 Oxygen Delivery 05/17/24 11:17 05/17/24 11:51 05/17/24 12:00 Temperature Pulse Rate 85 92 Respiratory Rate 12 14 Blood Pressure Pulse Oximetry 98 95 95 Oxygen Delivery 05/17/24 12:01 05/17/24 12:15 05/17/24 12:31 Temperature Pulse Rate 92 92 92 Respiratory Rate 13 15 20 Blood Pressure 165/77 H 177/82 H Pulse Oximetry 97 97 98 Oxygen Delivery 05/17/24 12:32 05/17/24 12:49 05/17/24 13:00 Temperature Pulse Rate 107 H 88 90 Respiratory Rate 20 20 14 Blood Pressure Pulse Oximetry 96 97 98 Oxygen Delivery 05/17/24 13:01 05/17/24 13:23 05/17/24 15:08 Temperature 97.9 F Pulse Rate 89 90 93 Respiratory Rate 14 20 20 Blood Pressure 163/86 H 163/86 H 162/98 H Pulse Oximetry 95 96 98 Oxygen Delivery 05/17/24 16:31 05/17/24 17:01 05/17/24 17:45 Temperature 97.9 F 97.7 F 98.1 F Pulse Rate 100 98 106 H Respiratory Rate 16 15 28 H Blood Pressure 187/98 H 166/100 H 189/111 H Pulse Oximetry 97 98 98 Oxygen Delivery 05/17/24 18:00 05/17/24 19:37 05/17/24 20:00 Temperature 98.5 F Pulse Rate 94 95 95 Respiratory Rate 20 Blood Pressure 174/90 H Pulse Oximetry 97 Oxygen Delivery 05/17/24 22:00 05/18/24 00:00 05/18/24 00:00 Temperature Pulse Rate 97 97 97 Respiratory Rate 18 Blood Pressure 158/104 H Pulse Oximetry 98 Oxygen Delivery 05/18/24 02:16 05/18/24 03:51 05/18/24 04:00 Temperature 97.7 F Pulse Rate 99 122 H 114 H Respiratory Rate 18 Blood Pressure 221/117 H Pulse Oximetry 98 Oxygen Delivery 05/18/24 04:28 05/18/24 04:29 05/18/24 06:00 Temperature Pulse Rate 113 H 113 H 89 Respiratory Rate Blood Pressure Pulse Oximetry Oxygen Delivery Intake/Output Intake/Output: Intake & Output 05/15/24 05/16/24 05/17/24 05/18/24 23:59 23:59 23:59 23:59 Intake Total 8150 7000 Output Total 60134 6500 Balance -3635 500 Meds/Results Medications: Active Medications Generic Name Dose Route Start Last Admin Trade Name Freq PRN Reason Stop Dose Admin Carvedilol 12.5 mg 05/18/24 04:00 05/18/24 04:29 Carvedilol 12.5 Mg Tablet PO 12.5 mg Q12HR ROSELINE Administration Dextrose 12.5 gm 05/17/24 13:48 Dextrose 50% 25 Gm/50 Ml Syringe IV PUSH PRN PRN Hypoglycemia Protocol Glucagon 1 mg 05/17/24 13:48 Glucagon For Inj 1 Mg Vial IM PRN PRN Hypoglycemia Protocol Glucose 15 gm 05/17/24 13:48 Glucose Oral Gel 15 Gm Of Glucse In 37.5 Gm Tube PO PRN PRN Hypoglycemia Protocol Sodium Chloride 1,000 mls @ 125 mls/hr 05/17/24 10:55 05/18/24 06:52 Normal Saline Iv IV CONT 125 mls/hr .Q8H ROSELINE Administration Dextrose 1,000 mls @ 100 mls/hr 05/17/24 13:48 Dextrose 5% 1,000 Ml IVPB PRN PRN Hypoglycemia Protocol Ceftriaxone Sodium 1 gm in 50 mls @ 100 mls/hr 05/18/24 13:00 Rocephin 1 Gm/Ns 50 Ml IVPB Q24H ROSELINE Insulin Aspart 2 - 5 units 05/17/24 17:00 05/17/24 17:06 Insulin Aspart (*Bkc) 100 Units/Ml SUB-Q Not Given TIDWM [facility] Protocol Lisinopril 5 mg 05/17/24 13:15 05/17/24 14:39 Lisinopril 5 Mg Tablet PO 5 mg QAM ROSELINE Administration Radiology Results: ITS Impressions Abdomen/Pelvis CT 05/17/24 10:39 IMPRESSION: 1. Findings most suggestive of hemorrhagic cystitis with a couple foci of suspected active extravasation into the lumen of the bladder. Consider urology consultation. 2. 1.4 cm indeterminate hypodense attenuation left renal lesion most likely proteinaceous/hemorrhagic cyst although differential includes solid renal cell carcinoma. Recommend further evaluation with pre and postcontrast MRI or CT. 3. Small sliding-type hiatal hernia. Chest X-Ray 05/17/24 14:09 IMPRESSION: No focal infiltrate or effusion. Labs Labs: Laboratory Results - last 24 hr 05/17/24 05/17/24 05/17/24 09:36 10:00 12:29 WBC 10.5 H RBC 4.47 L Hgb 12.5 L 12.6 L Hct 41.1 L 39.0 L MCV 91.9 MCH 28.0 MCHC 30.4 L RDW 14.6 H Plt Count 207 MPV 10.4 Immature Gran % (Auto) 0.3 Neut % (Auto) 63.2 Lymph % (Auto) 25.1 [place] % (Auto) 8.4 Eos % (Auto) 2.3 Baso % (Auto) 0.7 Lymph # (Auto) 2.64 [place] # (Auto) 0.9 H Eos # (Auto) 0.2 Baso # (Auto) 0.1 Abs Immat Gran (auto) 0.03 Absolute Neuts (auto) 6.7 Absolute Nucleated RBC 0.000 Nucleated RBC % 0.0 PT 13.3 INR 1.0 APTT 28.3 Sodium 141 Potassium 4.2 Chloride 103 Carbon Dioxide 31 H Anion Gap 7 BUN 15 Creatinine 0.80 Estim Creat Clear Calc 77 Estimated GFR > 60 Glucose 135 H POC Capillary Glucose Calcium 8.6 Magnesium Total Bilirubin 0.6 AST 25 ALT 18 Alkaline Phosphatase 92 Total Protein 7.0 Albumin 3.9 Urine Color Red H Urine Appearance Turbid H Urine pH TNP Ur Specific [place] 1.010 Urine Protein TNP Urine Glucose (UA) TNP Urine Ketones TNP Ur Blood (Man) 4+ H Urine Nitrate TNP Urine Bilirubin TNP Urine Urobilinogen TNP Leukocyte Esterase Rfl TNP Urine RBC >100 H Urine WBC Unable to determine Blood Type O Positive Antibody Screen Negative 05/17/24 05/17/24 05/17/24 15:16 17:54 18:44 WBC RBC Hgb 12.9 L Hct 39.5 L MCV MCH MCHC RDW Plt Count MPV Immature Gran % (Auto) Neut % (Auto) Lymph % (Auto) [place] % (Auto) Eos % (Auto) Baso % (Auto) Lymph # (Auto) [place] # (Auto) Eos # (Auto) Baso # (Auto) Abs Immat Gran (auto) Absolute Neuts (auto) Absolute Nucleated RBC Nucleated RBC % PT INR APTT Sodium Potassium Chloride Carbon Dioxide Anion Gap BUN Creatinine Estim Creat Clear Calc Estimated GFR Glucose POC Capillary Glucose 131 H 126 H Calcium Magnesium Total Bilirubin AST ALT Alkaline Phosphatase Total Protein Albumin Urine Color Urine Appearance Urine pH Ur Specific [place] Urine Protein Urine Glucose (UA) Urine Ketones Ur Blood (Man) Urine Nitrate Urine Bilirubin Urine Urobilinogen Leukocyte Esterase Rfl Urine RBC Urine WBC Blood Type Antibody Screen 05/17/24 05/18/24 05/18/24 20:40 04:50 07:31 WBC 16.2 H RBC 4.75 Hgb 13.4 L Hct 41.3 L MCV 86.9 D MCH 28.2 MCHC 32.4 RDW 14.5 Plt Count 240 MPV 10.3 Immature Gran % (Auto) 0.5 Neut % (Auto) 71.0 Lymph % (Auto) 19.0 [place] % (Auto) 8.5 Eos % (Auto) 0.6 Baso % (Auto) 0.4 Lymph # (Auto) 3.08 [place] # (Auto) 1.4 H Eos # (Auto) 0.1 Baso # (Auto) 0.1 Abs Immat Gran (auto) 0.08 H Absolute Neuts (auto) 11.5 H Absolute Nucleated RBC 0.000 Nucleated RBC % 0.0 PT INR APTT Sodium 142 Potassium 4.3 Chloride 105 Carbon Dioxide 24 Anion Gap 13 H BUN 13 Creatinine 0.81 Estim Creat Clear Calc 77 Estimated GFR > 60 Glucose 180 H POC Capillary Glucose 128 H 194 H Calcium 8.8 Magnesium 2.0 Total Bilirubin 0.8 AST 24 ALT 20 Alkaline Phosphatase 111 Total Protein 7.0 Albumin 4.1 Urine Color Urine Appearance Urine pH Ur Specific [place] Urine Protein Urine Glucose (UA) Urine Ketones Ur Blood (Man) Urine Nitrate Urine Bilirubin Urine Urobilinogen Leukocyte Esterase Rfl Urine RBC Urine WBC Blood Type Antibody Screen
[2024-05-18 11:12] LABS: Glucose Point of Care 150 mg/dl (65-105)
--- NOTE | 2024-05-18 13:41 | PC.NURSE ---
spoke with son garrett, he is aware the dr wants an mri before we can discharge pt and that mri may or may not be able to get him in today
--- NOTE | 2024-05-18 16:08 | P.PNIM_ITS ---
Progress Note: A&P Assessment and Plan (1) Gross hematuria: Code(s): R31.0 - Gross hematuria Status: Acute Plan Hemorrhagic cystitis hematuria resolved CT abdomen and pelvis showed is emerging cystitis s/p CBI urine culture and rocephin urology following and okay to discharge from their stand point Renal mass MRI pending Will follow up with urology outpatient pending MRI Type 2 diabetes Sliding scale insulin with Accu-Cheks, adjust with clinical course. Hypertension blood pressure is elevated Blood pressure 189/100 on admission, improving 143/81 today Started on lisinopril and amlodipine, will discharge on the current regimen Monitor nodules with clinical course. DVT prophylaxis SCDs, no anticoagulation due to hematuria. Patient is full code. Surrogate decision maker is Sofi Moe. Subjective Date/time seen: 05/18/24 16:08 Interval history: Comfortable at bedside awaiting MRI evaluation of renal mass Review of Systems Review of Systems: All Other systems reviewed and negative except as noted in history above. Exam Narrative: General: alert and comfortable Eyes: EOMI, PERRLA ENNT External ears normal, Neck is supple, no masses, Respiratory systems: Clear to auscultation Cardiovascular S1, S2, normal rhythm, no murmur, rub, or gallop; no thrill or palpable murmurs on palpation. Gastrointestinal: soft, non-tender, and non-distended abdomen with no masses; BS present Skin: no rash, lesions, ulcerations, subcutaneous nodules or induration Musculoskeletal: no abnormality and no tenderness, normal ROM Neurologic: Alert and oriented x3, non focal Mental Status Exam: normal affect : CBI in place draining bloody urine Objective Data Vital Signs Vital Signs: Vital Signs - 24 hr 05/17/24 16:31 05/17/24 17:01 05/17/24 17:45 Temperature 97.9 F 97.7 F 98.1 F Pulse Rate 100 98 106 H Respiratory Rate 16 15 28 H Blood Pressure 187/98 H 166/100 H 189/111 H Pulse Oximetry 97 98 98 Oxygen Delivery 05/17/24 18:00 05/17/24 19:37 05/17/24 20:00 Temperature 98.5 F Pulse Rate 94 95 95 Respiratory Rate 20 Blood Pressure 174/90 H Pulse Oximetry 97 Oxygen Delivery 05/17/24 22:00 05/18/24 00:00 05/18/24 00:00 Temperature Pulse Rate 97 97 97 Respiratory Rate 18 Blood Pressure 158/104 H Pulse Oximetry 98 Oxygen Delivery 05/18/24 02:16 05/18/24 03:51 05/18/24 04:00 Temperature 97.7 F Pulse Rate 99 122 H 114 H Respiratory Rate 18 Blood Pressure 221/117 H Pulse Oximetry 98 Oxygen Delivery 05/18/24 04:28 05/18/24 04:29 05/18/24 06:00 Temperature Pulse Rate 113 H 113 H 89 Respiratory Rate Blood Pressure Pulse Oximetry Oxygen Delivery 05/18/24 08:00 05/18/24 08:00 05/18/24 10:00 Temperature 97.9 F Pulse Rate 88 83 87 Respiratory Rate 20 Blood Pressure 189/93 H Pulse Oximetry 98 Oxygen Delivery 05/18/24 11:33 05/18/24 12:00 05/18/24 12:00 Temperature 98.2 F Pulse Rate 84 87 Respiratory Rate 18 Blood Pressure 143/81 H Pulse Oximetry 95 96 Oxygen Delivery Room Air 05/18/24 14:00 Temperature Pulse Rate 88 Respiratory Rate Blood Pressure Pulse Oximetry Oxygen Delivery Intake/Output Intake/Output: Intake & Output 05/15/24 05/16/24 05/17/24 05/18/24 23:59 23:59 23:59 23:59 Intake Total 8150 8510 Output Total 29878 7500 Balance -3635 1010 Meds/Results Medications: Active Medications Generic Name Dose Route Start Last Admin Trade Name Freq PRN Reason Stop Dose Admin Carvedilol 12.5 mg 05/18/24 04:00 05/18/24 04:29 Carvedilol 12.5 Mg Tablet PO 12.5 mg Q12HR ROSELINE Administration Dextrose 12.5 gm 05/17/24 13:48 Dextrose 50% 25 Gm/50 Ml Syringe IV PUSH PRN PRN Hypoglycemia Protocol Glucagon 1 mg 05/17/24 13:48 Glucagon For Inj 1 Mg Vial IM PRN PRN Hypoglycemia Protocol Glucose 15 gm 05/17/24 13:48 Glucose Oral Gel 15 Gm Of Glucse In 37.5 Gm Tube PO PRN PRN Hypoglycemia Protocol Sodium Chloride 1,000 mls @ 125 mls/hr 05/17/24 10:55 05/18/24 15:57 Normal Saline Iv IV CONT 125 mls/hr .Q8H ROSELINE Administration Dextrose 1,000 mls @ 100 mls/hr 05/17/24 13:48 Dextrose 5% 1,000 Ml IVPB PRN PRN Hypoglycemia Protocol Ceftriaxone Sodium 1 gm in 50 mls @ 100 mls/hr 05/18/24 13:00 05/18/24 13:48 Rocephin 1 Gm/Ns 50 Ml IVPB Infused Q24H ROSELINE Infusion Insulin Aspart 2 - 5 units 05/17/24 17:00 05/18/24 13:36 Insulin Aspart (*Bkc) 100 Units/Ml SUB-Q Not Given TIDWM [facility] Protocol Lisinopril 5 mg 05/17/24 13:15 05/18/24 09:01 Lisinopril 5 Mg Tablet PO Not Given QAM [facility] Radiology Results: ITS Impressions Abdomen/Pelvis CT 05/17/24 10:39 IMPRESSION: 1. Findings most suggestive of hemorrhagic cystitis with a couple foci of suspected active extravasation into the lumen of the bladder. Consider urology consultation. 2. 1.4 cm indeterminate hypodense attenuation left renal lesion most likely proteinaceous/hemorrhagic cyst although differential includes solid renal cell carcinoma. Recommend further evaluation with pre and postcontrast MRI or CT. 3. Small sliding-type hiatal hernia. Chest X-Ray 05/17/24 14:09 IMPRESSION: No focal infiltrate or effusion. Labs Labs: Laboratory Results - last 24 hr 05/17/24 05/17/24 05/17/24 17:54 18:44 20:40 WBC RBC Hgb 12.9 L Hct 39.5 L MCV MCH MCHC RDW Plt Count MPV Immature Gran % (Auto) Neut % (Auto) Lymph % (Auto) [place] % (Auto) Eos % (Auto) Baso % (Auto) Lymph # (Auto) [place] # (Auto) Eos # (Auto) Baso # (Auto) Abs Immat Gran (auto) Absolute Neuts (auto) Absolute Nucleated RBC Nucleated RBC % Sodium Potassium Chloride Carbon Dioxide Anion Gap BUN Creatinine Estim Creat Clear Calc Estimated GFR Glucose POC Capillary Glucose 126 H 128 H Calcium Magnesium Total Bilirubin AST ALT Alkaline Phosphatase Total Protein Albumin 05/18/24 05/18/24 05/18/24 04:50 07:31 10:49 WBC 16.2 H RBC 4.75 Hgb 13.4 L Hct 41.3 L MCV 86.9 D MCH 28.2 MCHC 32.4 RDW 14.5 Plt Count 240 MPV 10.3 Immature Gran % (Auto) 0.5 Neut % (Auto) 71.0 Lymph % (Auto) 19.0 [place] % (Auto) 8.5 Eos % (Auto) 0.6 Baso % (Auto) 0.4 Lymph # (Auto) 3.08 [place] # (Auto) 1.4 H Eos # (Auto) 0.1 Baso # (Auto) 0.1 Abs Immat Gran (auto) 0.08 H Absolute Neuts (auto) 11.5 H Absolute Nucleated RBC 0.000 Nucleated RBC % 0.0 Sodium 142 Potassium 4.3 Chloride 105 Carbon Dioxide 24 Anion Gap 13 H BUN 13 Creatinine 0.81 Estim Creat Clear Calc 77 Estimated GFR > 60 Glucose 180 H POC Capillary Glucose 194 H 150 H Calcium 8.8 Magnesium 2.0 Total Bilirubin 0.8 AST 24 ALT 20 Alkaline Phosphatase 111 Total Protein 7.0 Albumin 4.1
[2024-05-18 16:35] LABS: Glucose Point of Care 196 mg/dl (65-105)
--- NOTE | 2024-05-18 18:10 | PC.NURSE ---
pt sent to rm [id number], taken up in bed, family called
[2024-05-18 21:34] LABS: Glucose Point of Care 191 mg/dl (65-105)
[2024-05-19] MEDS: SODIUM CHLORIDE 0.9% IV 1,000 ML 125 ML IV CONT ×3 (02:04→22:20)
[2024-05-19 06:00] VITALS: BP 158/60; PULSE 79; RESP 18; TEMP 36.9; O2SAT 98
[2024-05-19 09:30] LABS: Glucose Point of Care 160 mg/dl (65-105)
[2024-05-19 09:30] LABS: Glucose Point of Care 164 mg/dl (65-105)
[2024-05-19 10:12] VITALS: PULSE 79
[2024-05-19] MEDS: carvediloL 12.5 MG TABLET PO ×2 (10:12→20:41)
[2024-05-19] MEDS: lisinopriL 5 MG TABLET PO (10:12)
--- NOTE | 2024-05-19 12:14 | PM.IMPN ---
Progress Note: A&P Assessment and Plan (1) Gross hematuria: Code(s): R31.0 - Gross hematuria Status: Acute Plan Hemorrhagic cystitis hematuria resolved CT abdomen and pelvis showed is emerging cystitis s/p CBI urine culture and rocephin urology following and okay to discharge from their stand point Renal mass MRI Benign cysts in the kidneys Type 2 diabetes Sliding scale insulin with Accu-Cheks, adjust with clinical course. Hypertension blood pressure is elevated Blood pressure 189/100 on admission, improving 143/81 today Started on lisinopril and amlodipine, will discharge on the current regimen Monitor nodules with clinical course. DVT prophylaxis SCDs, no anticoagulation due to hematuria. Patient is full code. Surrogate decision maker is Sofi Moe. Subjective Date/time seen: 05/19/24 12:14 Interval history: Possible cystoscopy as an outpatient.No acute events overnight Review of Systems Review of Systems: All Other systems reviewed and negative except as noted in history above. Exam Narrative: General: alert and comfortable Eyes: EOMI, PERRLA ENNT External ears normal, Neck is supple, no masses, Respiratory systems: Clear to auscultation Cardiovascular S1, S2, normal rhythm, no murmur, rub, or gallop; no thrill or palpable murmurs on palpation. Gastrointestinal: soft, non-tender, and non-distended abdomen with no masses; BS present Skin: no rash, lesions, ulcerations, subcutaneous nodules or induration Musculoskeletal: no abnormality and no tenderness, normal ROM Neurologic: Alert and oriented x3, non focal Mental Status Exam: normal affect : CBI in place draining bloody urine Objective Data Vital Signs Vital Signs: Vital Signs - 24 hr 05/18/24 14:00 05/18/24 16:00 05/18/24 16:00 Temperature 97.5 F L Pulse Rate 88 95 90 Respiratory Rate 22 H Blood Pressure 167/90 H Pulse Oximetry 98 Oxygen Delivery 05/18/24 20:48 05/18/24 22:16 05/19/24 06:00 Temperature 98.5 F Pulse Rate 80 80 79 Respiratory Rate 22 H 18 Blood Pressure 158/60 H Pulse Oximetry 98 98 Oxygen Delivery Room Air 05/19/24 10:00 05/19/24 10:12 Temperature Pulse Rate 79 Respiratory Rate Blood Pressure Pulse Oximetry Oxygen Delivery Room Air Intake/Output Intake/Output: Intake & Output 05/16/24 05/17/24 05/18/24 05/19/24 23:59 23:59 23:59 23:59 Intake Total 8150 74888 1120 Output Total 76682 7500 Balance -5982 2244 1120 Meds/Results Medications: Active Medications Generic Name Dose Route Start Last Admin Trade Name Freq PRN Reason Stop Dose Admin Carvedilol 12.5 mg 05/18/24 04:00 05/19/24 10:12 Carvedilol 12.5 Mg Tablet PO 12.5 mg Q12HR ROSELINE Administration Dextrose 12.5 gm 05/17/24 13:48 Dextrose 50% 25 Gm/50 Ml Syringe IV PUSH PRN PRN Hypoglycemia Protocol Glucagon 1 mg 05/17/24 13:48 Glucagon For Inj 1 Mg Vial IM PRN PRN Hypoglycemia Protocol Glucose 15 gm 05/17/24 13:48 Glucose Oral Gel 15 Gm Of Glucse In 37.5 Gm Tube PO PRN PRN Hypoglycemia Protocol Sodium Chloride 1,000 mls @ 125 mls/hr 05/17/24 10:55 05/19/24 10:10 Normal Saline Iv IV CONT 125 mls/hr .Q8H ROSELINE Administration Dextrose 1,000 mls @ 100 mls/hr 05/17/24 13:48 Dextrose 5% 1,000 Ml IVPB PRN PRN Hypoglycemia Protocol Ceftriaxone Sodium 1 gm in 50 mls @ 100 mls/hr 05/18/24 13:00 05/18/24 13:48 Rocephin 1 Gm/Ns 50 Ml IVPB Infused Q24H ROSELINE Infusion Insulin Aspart 2 - 5 units 05/17/24 17:00 05/19/24 10:05 Insulin Aspart (*Bkc) 100 Units/Ml SUB-Q Not Given TIDWM ROSELINE Protocol Lisinopril 5 mg 05/17/24 13:15 05/19/24 10:12 Lisinopril 5 Mg Tablet PO 5 mg QAM ROSELINE Administration Radiology Results: ITS Impressions Abdomen/Pelvis CT 05/17/24 10:39 IMPRESSION: 1. Findings most suggestive of hemorrhagic cystitis with a couple foci of suspected active extravasation into the lumen of the bladder. Consider urology consultation. 2. 1.4 cm indeterminate hypodense attenuation left renal lesion most likely proteinaceous/hemorrhagic cyst although differential includes solid renal cell carcinoma. Recommend further evaluation with pre and postcontrast MRI or CT. 3. Small sliding-type hiatal hernia. Chest X-Ray 05/17/24 14:09 IMPRESSION: No focal infiltrate or effusion. Labs Labs: Laboratory Results - last 24 hr 05/18/24 05/18/24 05/19/24 16:31 21:32 09:22 POC Capillary Glucose 196 H 191 H 160 H 05/19/24 09:25 POC Capillary Glucose 164 H Hospitalist MIPS Advance Care Plan I have confirmed that the patient's Advanced Care Plan is present, code status is documented, or surrogate decision maker is listed in patient medical record.: Yes Medication Reconciliation I have utilized all available resources to obtain, update and review the patients current medications (includes all prescriptions, OTC, herbals, cannabis, and nutritional supplements).: Yes
[2024-05-19 12:22] LABS: Glucose Point of Care 142 mg/dl (65-105)
[2024-05-19 13:23] LABS: Hematocrit 37.1 % (42.0-52.0); Hemoglobin 12.1 g/dL (14.0-18.0); Mean Corpuscular HGB Conc 32.6 g/dl (32-36); Mean Corpuscular Hemoglobin 28.5 pg (26-34); Mean Corpuscular Volume 87.5 fl (80-100); Mean Platelet Volume 10.4 fl (7.4-10.4); Platelet Count Result 209 k/mm3 (150-375); Red Blood Count 4.24 M/mm3 (4.6-6.20); Red Cell Distribution Width 14.8 % (11.5-14.5); White Blood Count 12.7 K/mm3 (4.5-10.0)
[2024-05-19 13:46] LABS: Alanine Aminotransferase 15 U/L (6-50); Albumin Level 3.6 g/dL (3.5-5.1); Alkaline Phosphatase 85 U/L (38-126); Anion Gap 8 mmol/L (4-12); Aspartate Amino Transferase 22 U/L (17-59); Bilirubin,Total 0.7 mg/dL (0.2-1.3); Blood Urea Nitrogen 11 mg/dL (9-20); Calcium 8.5 mg/dL (8.4-10.2); Carbon Dioxide 27 mmol/L (22-30); Chloride 107 mmol/L (98-107); Estimated CRCL calculation 86 ml/min; Estimated Glomerular Filt Rate > 60; Glucose 166 mg/dL (65-110); Potassium 3.7 mmol/L (3.4-5.0); Sodium 142 mmol/L (137-145)
[2024-05-19 14:00] VITALS: BP 150/70; PULSE 80; RESP 20; TEMP 36.8; O2SAT 98
--- NOTE | 2024-05-19 14:53 | WPDUROPN2 ---
Progress Note: A&P Assessment and Plan (1) Gross hematuria: Code(s): R31.0 - Gross hematuria Status: Acute Assessment and Plan: Resolved Plan - Gross hematuria resolved. CBI discontinued. - Anderson out, voiding spontaneously. - Urine culture negative for infection. - Intermediate left renal mass identified on CT. 05/19/24 MR CLOVIS TURPINO: Benign bilateral renal cysts, largest on the right measuring 6cm. - Plan outpatient follow-up with Urology to complete hematuria workup with diagnostic cystoscopy. Patient aware and agreeable. - Urologically cleared for discharge. Subjective Subjective Date/Time Seen: 05/19/24 14:53 Interval history: NAEO. Patient comfortable on exam. Reports voiding yellow urine, no blood. Eager for discharge. Exam Const: General: comfortable and no acute distress Psych: Mental Status: mental status grossly normal Objective Data Vital Signs Vital Signs: Vital Signs - 24 hr 05/18/24 16:00 05/18/24 16:00 05/18/24 20:48 Temperature 97.5 F L Pulse Rate 95 90 80 Respiratory Rate 22 H Blood Pressure 167/90 H Pulse Oximetry 98 Oxygen Delivery 05/18/24 22:16 05/19/24 06:00 05/19/24 10:00 Temperature 98.5 F Pulse Rate 80 79 Respiratory Rate 22 H 18 Blood Pressure 158/60 H Pulse Oximetry 98 98 Oxygen Delivery Room Air Room Air 05/19/24 10:12 Temperature Pulse Rate 79 Respiratory Rate Blood Pressure Pulse Oximetry Oxygen Delivery Intake/Output Intake/Output: Intake & Output 05/16/24 05/17/24 05/18/24 05/19/24 23:59 23:59 23:59 23:59 Intake Total 8150 82526 1120 Output Total 92221 7500 Balance -3635 2530 1120 Meds/Results Medications: Active Medications Generic Name Dose Route Start Last Admin Trade Name Freq PRN Reason Stop Dose Admin Carvedilol 12.5 mg 05/18/24 04:00 05/19/24 10:12 Carvedilol 12.5 Mg Tablet PO 12.5 mg Q12HR ROSELINE Administration Dextrose 12.5 gm 05/17/24 13:48 Dextrose 50% 25 Gm/50 Ml Syringe IV PUSH PRN PRN Hypoglycemia Protocol Glucagon 1 mg 05/17/24 13:48 Glucagon For Inj 1 Mg Vial IM PRN PRN Hypoglycemia Protocol Glucose 15 gm 05/17/24 13:48 Glucose Oral Gel 15 Gm Of Glucse In 37.5 Gm Tube PO PRN PRN Hypoglycemia Protocol Sodium Chloride 1,000 mls @ 125 mls/hr 05/17/24 10:55 05/19/24 10:10 Normal Saline Iv IV CONT 125 mls/hr .Q8H ROSELINE Administration Dextrose 1,000 mls @ 100 mls/hr 05/17/24 13:48 Dextrose 5% 1,000 Ml IVPB PRN PRN Hypoglycemia Protocol Ceftriaxone Sodium 1 gm in 50 mls @ 100 mls/hr 05/18/24 13:00 05/19/24 14:24 Rocephin 1 Gm/Ns 50 Ml IVPB 100 mls/hr Q24H ROSELINE Administration Insulin Aspart 2 - 5 units 05/17/24 17:00 05/19/24 12:27 Insulin Aspart (*Bkc) 100 Units/Ml SUB-Q Not Given TIDWM ROSELINE Protocol Lisinopril 5 mg 05/17/24 13:15 05/19/24 10:12 Lisinopril 5 Mg Tablet PO 5 mg QAM ROSELINE Administration Radiology Results: ITS Impressions Abdomen/Pelvis CT 05/17/24 10:39 IMPRESSION: 1. Findings most suggestive of hemorrhagic cystitis with a couple foci of suspected active extravasation into the lumen of the bladder. Consider urology consultation. 2. 1.4 cm indeterminate hypodense attenuation left renal lesion most likely proteinaceous/hemorrhagic cyst although differential includes solid renal cell carcinoma. Recommend further evaluation with pre and postcontrast MRI or CT. 3. Small sliding-type hiatal hernia. Chest X-Ray 05/17/24 14:09 IMPRESSION: No focal infiltrate or effusion. Abdomen MRI 05/19/24 12:37 IMPRESSION: 1. Benign cysts in the kidneys. Labs Labs: Laboratory Results - last 24 hr 05/18/24 05/18/24 05/19/24 16:31 21:32 09:22 WBC RBC Hgb Hct MCV MCH MCHC RDW Plt Count MPV Sodium Potassium Chloride Carbon Dioxide Anion Gap BUN Creatinine Estim Creat Clear Calc Estimated GFR Glucose POC Capillary Glucose 196 H 191 H 160 H Calcium Total Bilirubin AST ALT Alkaline Phosphatase Total Protein Albumin 05/19/24 05/19/24 05/19/24 09:25 12:18 13:16 WBC 12.7 H RBC 4.24 L Hgb 12.1 L Hct 37.1 L MCV 87.5 MCH 28.5 MCHC 32.6 RDW 14.8 H Plt Count 209 MPV 10.4 Sodium 142 Potassium 3.7 Chloride 107 Carbon Dioxide 27 Anion Gap 8 BUN 11 Creatinine 0.71 Estim Creat Clear Calc 86 Estimated GFR > 60 Glucose 166 H POC Capillary Glucose 164 H 142 H Calcium 8.5 Total Bilirubin 0.7 AST 22 ALT 15 Alkaline Phosphatase 85 Total Protein 7.0 Albumin 3.6
[2024-05-19 16:41] LABS: Glucose Point of Care 146 mg/dl (65-105)
[2024-05-19 20:49] LABS: Glucose Point of Care 151 mg/dl (65-105)
[2024-05-19 21:10] VITALS: BP 163/80; PULSE 80; RESP 16; TEMP 36.6; O2SAT 98
[2024-05-20 06:00] VITALS: BP 150/70; PULSE 73; RESP 18; TEMP 36.4; O2SAT 98
[2024-05-20] MEDS: SODIUM CHLORIDE 0.9% IV 1,000 ML 125 ML IV CONT (06:09)
[2024-05-20] MEDS: lisinopriL 5 MG TABLET PO (07:50)
[2024-05-20] MEDS: carvediloL 12.5 MG TABLET PO (07:50)
[2024-05-20 07:55] LABS: Hematocrit 37.1 % (42.0-52.0); Hemoglobin 11.9 g/dL (14.0-18.0); Mean Corpuscular HGB Conc 32.1 g/dl (32-36); Mean Corpuscular Hemoglobin 28.1 pg (26-34); Mean Corpuscular Volume 87.7 fl (80-100); Mean Platelet Volume 10.5 fl (7.4-10.4); Platelet Count Result 200 k/mm3 (150-375); Red Blood Count 4.23 M/mm3 (4.6-6.20); Red Cell Distribution Width 14.9 % (11.5-14.5); White Blood Count 10.4 K/mm3 (4.5-10.0)
[2024-05-20 08:08] LABS: Alanine Aminotransferase 15 U/L (6-50); Albumin Level 3.6 g/dL (3.5-5.1); Alkaline Phosphatase 80 U/L (38-126); Anion Gap 8 mmol/L (4-12); Aspartate Amino Transferase 22 U/L (17-59); Bilirubin,Total 0.6 mg/dL (0.2-1.3); Blood Urea Nitrogen 11 mg/dL (9-20); Calcium 8.4 mg/dL (8.4-10.2); Carbon Dioxide 26 mmol/L (22-30); Chloride 109 mmol/L (98-107); Estimated CRCL calculation 95 ml/min; Estimated Glomerular Filt Rate > 60; Glucose 128 mg/dL (65-110); Potassium 3.3 mmol/L (3.4-5.0); Sodium 143 mmol/L (137-145)
[2024-05-20 08:32] LABS: Glucose Point of Care 148 mg/dl (65-105)
[2024-05-20] MEDS: POTASSIUM CHLORIDE 20 MEQ ER TABLET 40 MEQ PO (09:35)
[2024-05-20 11:55] LABS: Glucose Point of Care 142 mg/dl (65-105)
[2024-05-20 15:05] VITALS: BP 171/76; PULSE 85; RESP 16; TEMP 36.9; O2SAT 98
--- NOTE | 2024-05-20 15:05 | PM.DS ---
DS: Admitting Diagnosis Discharge Date 05/20/2024 Admitting Diagnosis Hematuria DS: Discharge Diagnosis Discharge Diagnosis (1) Gross hematuria: Code(s): R31.0 - Gross hematuria Status: Acute Plan Hemorrhagic cystitis hematuria resolved CT abdomen and pelvis showed is emerging cystitis s/p CBI urine culture and rocephin urology following and okay to discharge from their stand point Renal mass MRI Benign cysts in the kidneys Type 2 diabetes Sliding scale insulin with Accu-Cheks, adjust with clinical course. Hypertension blood pressure is elevated Blood pressure 189/100 on admission, improving 143/81 today Started on lisinopril and amlodipine, will discharge on the current regimen Monitor nodules with clinical course. DVT prophylaxis SCDs, no anticoagulation due to hematuria. Patient is full code. Surrogate decision maker is Sofi Moe. DS: Summary Hospital Course Hospital Course: 73-year-old male past medical history of dementia diabetes presented to the ER on account of blood in urine. Patient denies any prior history prostate problems of bloody urine however noted episode since yesterday presented to be due to persistent symptoms. Denies any trauma, no lightheadedness, no chest pain shortness for breath no dysuria not on blood thinners. ER evaluation notable for blood pressure 189/100 ordered stable within normal limits. Labs notable for WBC 10.5, hemoglobin 12.5, INR is 1.0 APTT 28.3 UA right urine: Which her BC over 100. CT abdomen pelvis showed findings suggestive of hemorrhagic cystitis with the couple foci of suspected active extravasation into the lumen of the bladder, 1.4 cm indeterminate hypodense attenuation left renal lesion most likely proteinaceous hemorrhagic cyst although differential includes early renal cell carcinoma. I assumed care on 05/19-05/20: As per urology: - Gross hematuria resolved. CBI discontinued. - Anderson out, voiding spontaneously. - Urine culture negative for infection. - Intermediate left renal mass identified on CT. 05/19/24 MR CLOVIS WWO: Benign bilateral renal cysts, largest on the right measuring 6cm. - Plan outpatient follow-up with Urology to complete hematuria workup with diagnostic cystoscopy. Patient aware and agreeable. - Urologically cleared for discharge. UC is negative. patient completed the course of ceftriaxone. Status at Discharge Cognitive/behavioral status at discharge: Stable Time Spent with Patient Time attestation: Total time spent providing and/or coordinating discharge services:45 minutes Exam Narrative: General: alert and comfortable Eyes: EOMI, PERRLA ENNT External ears normal, Neck is supple, no masses, Respiratory systems: Clear to auscultation Cardiovascular S1, S2, normal rhythm, no murmur, rub, or gallop; no thrill or palpable murmurs on palpation. Gastrointestinal: soft, non-tender, and non-distended abdomen with no masses; BS present Skin: no rash, lesions, ulcerations, subcutaneous nodules or induration Musculoskeletal: no abnormality and no tenderness, normal ROM Neurologic: Alert and oriented x3, non focal Mental Status Exam: normal affect : CBI in place draining bloody urine Const: General: comfortable and no acute distress : Male General Exam: Yes normal external exam Urinary Catheter: Urinary Catheter: patent and draining and other (CBI running) Neuro: Sensory Exam: normal sensation Psych: Mental Status: mental status grossly normal Speech and movement: Normal speech and movement present Affect: normal affect DS: Data Data Completed and Pending Labs on day of discharge: Labs from last 24 hours 05/20/24 05/20/24 05/20/24 11:52 08:18 07:32 WBC 10.4 H RBC 4.23 L Hgb 11.9 L Hct 37.1 L MCV 87.7 MCH 28.1 MCHC 32.1 RDW 14.9 H Plt Count 200 MPV 10.5 H Sodium 143 Potassium 3.3 L Chloride 109 H Carbon Dioxide 26 Anion Gap 8 BUN 11 Creatinine 0.64 L Estim Creat Clear Calc 95 Estimated GFR > 60 Glucose 128 H POC Capillary Glucose 142 H 148 H Calcium 8.4 Total Bilirubin 0.6 AST 22 ALT 15 Alkaline Phosphatase 80 Total Protein 7.0 Albumin 3.6 05/19/24 05/19/24 20:01 16:37 WBC RBC Hgb Hct MCV MCH MCHC RDW Plt Count MPV Sodium Potassium Chloride Carbon Dioxide Anion Gap BUN Creatinine Estim Creat Clear Calc Estimated GFR Glucose POC Capillary Glucose 151 H 146 H Calcium Total Bilirubin AST ALT Alkaline Phosphatase Total Protein Albumin Imaging Radiologist's impression: ITS Impressions Abdomen/Pelvis CT 05/17/24 10:39 IMPRESSION: 1. Findings most suggestive of hemorrhagic cystitis with a couple foci of suspected active extravasation into the lumen of the bladder. Consider urology consultation. 2. 1.4 cm indeterminate hypodense attenuation left renal lesion most likely proteinaceous/hemorrhagic cyst although differential includes solid renal cell carcinoma. Recommend further evaluation with pre and postcontrast MRI or CT. 3. Small sliding-type hiatal hernia. Chest X-Ray 05/17/24 14:09 IMPRESSION: No focal infiltrate or effusion. Abdomen MRI 05/19/24 12:37 IMPRESSION: 1. Benign cysts in the kidneys. Discharge Plan Discharge Attending physician on discharge: Omero Garcia Consulting providers: Raymond Silverman Discharging Clinician: Omero Garcia Anticipated Discharge Date/Time: 05/20/24 15:06 Patient Disposition: [facility] Activity: as tolerated Diet: as tolerated and regular Discharge Instructions: Follow up with Urology in a week. Please follow with PCP for blood pressure management. Patient started on carvedilol and amlodipine. Take precautions to avoid falls. Rise slowly from a lying or sitting position. Pause before standing or walking. Contact your doctor or call 911 and come to the Emergency Room if you have any type of trauma, lightheadedness with standing or other worrisome symptoms. Avoid NSAIDs (ibuprofen, naproxen, Aleve). Tylenol is safe to take. Follow-up with your primary care provider in 1-2 weeks. Please call for appointment. Follow-up with Cardiology in 2-4 weeks. Please call for an appointment. Thank you for using [facility] for your health care needs. Patient Instructions: Antibiotic Form Patient Language: Greenlandic Stand Alone Forms: General Discharge Information Follow-up/Referrals: PCP [Other] (Please follow up within 1 week for BP management.) Chico Amaya MD [Physician] - (Establish with first available urologist at [facility] Needs diagnostic cystoscopy to complete hematuria workup.) Discharge Medications: New carvedilol [Coreg] 12.5 mg Tablet 12.5 mg PO Q12HR Qty: 30 0RF amlodipine [Norvasc] 5 mg tablet 5 mg PO DAILY Qty: 30 0RF Continued atorvastatin 40 mg tablet 40 mg PO QPM acetaminophen 325 mg capsule 650 mg PO Q6H PRN (Reason: pain) Patient Comments: For unspecified knee pain Acidophilus Capsule 100 mg PO BID baclofen 10 mg tablet 10 mg PO DAILY cholestyramine (with sugar) 4 gram powder in packet 1 ea PO DAILY cilostazol 100 mg tablet 100 mg PO BID dapagliflozin propanediol [Farxiga] 10 mg tablet 10 mg PO DAILY gabapentin 100 mg capsule 100 mg PO TID loperamide [Anti-Diarrheal (loperamide)] 2 mg capsule 2 mg PO Q6H PRN (Reason: loose stool) insulin glargine [Lantus Solostar U-100 Insulin] 100 unit/mL (3 mL) insulin pen 20 unit subcut QPM Kaopectate Ex Str (bismuth ss) 525 mg/15 mL suspension 1,050 mg PO BID PRN (Reason: diarrhea) lactase [Dairy Relief] 3,000 unit tablet 6,000 unit PO QID PRN (Reason: lactose intolerance) Rx Instructions: administer with meals and/or snacks multivitamin [Daily Multi-Vitamin] Tablet 1 tablet PO DAILY ondansetron HCl 4 mg tablet 4 mg PO Q6H PRN (Reason: nausea and vomiting) pantoprazole 40 mg tablet,delayed release (DR/EC) 40 mg PO Q12H sucralfate 1 gram tablet 1 g PO BID tamsulosin 0.4 mg capsule 0.4 mg PO DAILY trazodone 50 mg tablet 25 mg PO DAILY venlafaxine 75 mg tablet 75 mg PO DAILY vitamin B38-bdzrt acid 500-400 mcg tablet 1 tablet PO DAILY Rx Instructions: administer with a meal cholecalciferol (vitamin D3) [Vitamin D3] 25 mcg (1,000 unit) capsule 25 mcg PO DAILY diclofenac sodium 1 % gel 2 g topical BID Rx Instructions: apply to single elbow, wrist or hand; for hand includes palm/fingers/back of hand Date of admission: 05/18/24 16:00 Primary Care Provider: Ian Bright Admitting Provider: Alan Elliott Attending physician on admission: Alan Elliott Condition: Serious
[2024-05-20 15:40] VITALS: BP 152/76
[2024-05-20 16:56] LABS: Glucose Point of Care 160 mg/dl (65-105)
== END 2024-05-20 19:45 | DRG 690 ==
LOC: ANHED 11:03 → ANHIMU 11:14 → ANH3MEDSUR 05-18 18:04
PROVIDERS: Admitting Provider Internal Medicine; Emergency Provider Emergency Medicine; PCP Internal Medicine; Visit Provider General Practice
DX: N30.91 Cystitis, unspecified with hematuria (principal); N28.1 Cyst of kidney, acquired; I10 Essential (primary) hypertension; E11.9 Type 2 diabetes mellitus without complications; F03.90 Unspecified dementia, unspecified severity, without behavioral disturbance, psychotic disturbance, mood disturbance, and anxiety; Z87.891 Personal history of nicotine dependence
CPT/HCPCS: 36415; 71045; 74177; 74183; 80053; 81001; 82948; 83735; 85014; 85018; 85025; 85027; 85610; 85730; 86850; 86900; 86901; 87086; 96361; 96365; 99285; A9270; A9577; G0378; J0696; J7030; J7120; Q9967

== ENCOUNTER 2024-06-01 10:20 | Emergency (ER) | payer OTHER, MEDICAID, SELFPAY ==
--- NOTE | ~2024-06-01 | CT_ITS ---
EXAMINATION: CT abdomen pelvis wo con DATE: 06/01/2024 14:46 INDICATION: Hematuria TECHNIQUE: Computed tomography (CT) of the abdomen and pelvis was performed without intravenous contr ast. Automated exposure control and iterative reconstruction technique were employed. The dose-length product was 1238.27 mGy-cm. COMPARISON: Chest 05/17/24 FINDINGS: Mild bibasilar atelectasis with mild bronchiectatic changes in the bilateral lower lobes. No pleural effusion. Heart size is normal. Atherosclerotic coronary artery calcifications. Aortic valve calcific ations. Minimal pericardial effusion. Cholecystectomy clips the gallbladder fossa. Liver, spleen, hill creas, bilateral adrenal glands are normal. There are bilateral low-attenuation renal cysts, the larg est exophytic cyst arising from the lower pole the right kidney measuring 5.4 cm diameter with minima l dependently layering high attenuation milk of calcium. There is also a 1.5 similar hyperdense prote inaceous/hemorrhagic cyst at the interpolar region of the left kidney. There is moderate scattered co lonic diverticulosis without adjacent inflammatory stranding to suggest diverticulitis. Small bowel a nd appendix are normal. There are some asymmetric wall thickening the bladder is prominent on the rig ht, posterior and inferior callaway of the bladder. No free intraperitoneal gas or fluid. No pathologica lly enlarged abdominal or pelvic lymphadenopathy. Mild thoracolumbar spondylosis with bridging osteop hytes at multiple levels consistent with diffuse idiopathic skeletal hyperostosis (DISH). IMPRESSION: 1. Identical pattern of nonuniform wall thickening of the bladder which could be due to cystitis but the nonuniformity and lack of appreciable change is suspicious for malignancy. Consider cystoscopy fo r further evaluation. 2. Minimal pericardial effusion. Reviewed, dictated and finalized at location B. PRESS OPERATOR IMPRESSION: 1. Identical pattern of nonuniform wall thickening of the bladder which could b e due to cystitis but the nonuniformity and lack of appreciable change is suspi cious for malignancy. Consider cystoscopy for further evaluation. 2. Minimal pericardial effusion.
[2024-06-01 10:44] VITALS: BP 99/51; PULSE 78; RESP 19; TEMP 36.7; O2SAT 99
--- OUTSIDE RECORDS SUMMARY | 2024-06-01 11:36 | XMS_ITS | CONTINUITY OF CARE DOCUMENT ---
Author Name jon webb Address Unknown Organization [facility] Address [address] [address] [place] [address] Phone [phone] Care Team Providers Care Mule Driver Name Role Phone Filipe Ramirez MD Unavailable [phone] Jaymie Paiz MD Unavailable GALINA TATE MD Unavailable [phone] PROBLEMS Condition Status Date Provider Notes Cardiology examination active Jaymie mayes MD Coronary Heart Disease active Jaymie mayes MD OSTEOARTHRITIS, Bilateral Knees active Margot Paiz MD Cardiology examination active Jaymie mayes MD Neuropathy active Jaymie Paiz MD Vitamin D deficiency active Jaymie Paiz MD G E R D active Jaymie Paiz MD Diabetes, Type 2 active Jaymie Paiz MD Leg Edema active Jaymie Paiz MD PVD active Jaymie Paiz MD ENCOUNTERS Date Type Provider Location Encounter Diag nosis - In-person encounter Office Visit Filipe Ramirez MD [place] - In-person encounter Office Visit Jaymie Paiz MD [facility] Cardiology examination - In-person encounter Office Visit Jaymie Paiz MD [place] - In-person encounter Office Visit Jaymie Paiz MD [facility] OSTEOARTHRITIS, Bilateral Knees - In-person encounter Office Visit Jaymie Paiz MD [facility] Cardiology examinationPVDLeg EdemaDiabetes, Type 2G E [...] nkLogbrittny blood pressure, systolic 124 mm[Hg] [place] [facility] blood pressure, diastolic 66 mm[Hg] Naya [place]ro [...] tablet by mouth once a day Patricia Narayananalglmichael [facility] cilostazol 100 mg tablet active TAKE 1 TABLET BY MOUTH TWICE A DAY Jaymie Paiz MD Lipitor 20 mg tablet active TAKE 1 TABLET BY MOUTH EVERY DAY Patriciajoey Narayananmiglia [facility] tamsulosin 0.4 mg capsule active William oxycodone 5 mg tablet completed TAKE 1 TABLET BY MOUTH EVERY 6 HOURS NEEDED FOR BREAKTHROUGH PAIN - Patriciajoey Narayananmiglmichael [facility] lactulose 10 gram/15 mL solution completed [...] history of marijuana use no Patricia Ventimiglia [employer] drug use no Patriciajoey Narayananmig chapincito [employer] alcohol use no Patriciajoey Narayananmig chapincito [facility] smoking status Never smoker Patricia Loera iglmichael [employer] social history reviewed E&M revi ewed - no changes required Jyamie Paiz MD social history E&M S moking History: Margaret kowalski has never smoked. Jaymie Paiz MD smoking status Never smoker Devi Saul social history E&M S moking History: Margaret kowalski has never smoked. Randi Oswald social history reviewed E&M revi ewed - no changes required Randi Oswald smoking status Never smoker Danielle Fontanez and FUNCTIONAL STATUS Date Observation Value Provider HRA, CV Assess/Plan, Angina (inactive) Management Plan continue current therapy Patricia Crouch [facility] HRA, CV Assess/Plan, Angina (inactive) Management Plan continue current therapy Randi Oswald INSURANCE PROVIDERS Payer name Policy type / Coverage type [facility] ID [place] MEDICARE Medicare [id number] [facility] [employer] Medicaid 0 [id number] ADVANCE DIRECTIVES Name Date DISCUSSED - NO DECISION MADE TREATMENT PLAN Date Name Performer [id number],C, H is updated medication list for this problem includes: Pantoprazole 40 Mg Tablet,delayed Release (dr/ec) (Pantoprazole) Sucralfate 1 Gram Tablet (Sucralfate) Jaymie Paiz MD [id number],C,On vitamin D Jaymie Paiz MD [id number],C,C ontinues on insulin Jaymie Paiz MD [id number],C,L imited flexion and extension of both knees with inability to walk. Pt now wheelchair bound. May benefit from seeing orthopedist. Jaymie Paiz MD [id number],C,O n gabapentin. Likely related to Diabetes. Jaymie Paiz MD [id number],C,B ilateral amputations of toes on both feet. Denies of any pain. No ulcerations. 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 As he has no symptoms, and there were no ulcerations and being minimally ambulatory no intervention at present is indicated. Jaymie Paiz MD [id number],C,H e had cath done a few years ago that did not show any signficiant CAD. Jaymie Paiz MD [id number],C, O n supplementation Randi Oswald [id number],C, C ontinues on pantoprazole Randi Oswald [id number],C, C ontinues on insulin Randi Oswald [id number],C, H ad a cath a few years ago that did not show any signficiant CAD. Randi Oswald [id number],C, P t complains of non healing sore [...] (Insulin glargine) Filipe Ramirez MD Cardiology: Amelia roman had cath done a few years ago [...] . Additional findings as detailed above. Jaymie Paiz MD Cardiology: H is updated medication list for this problem includes: Pantoprazole 40 Mg Tablet,delayed Release (dr/ec) (Pantoprazole) Sucralfate 1 Gram Tablet (Sucralfate) [facility] Cardiology:on replacement therap y [facility] Cardiology: H is updated medication list for this problem includes: Insulin Glargine 100 Unit/ml (3 Ml) Insulin Pen (Insulin glargine) [facility] Cardiology:His legs are swollen Lt >RT has [...] 1 tablet by mouth twice a day [place] [facility] Cardiology: H is updated medication list [...] Doppler Bilat eral LE Arterial Duplex Bi-L ower EX HISTORY OF PROCEDURES Procedure Date Procedure Name Provider Procedure Notes S tatus Complex e/m visit add on Filipe Ramirez MD completed RENETTA Paiz MD complet ed RENETTA Paiz MD complet ed EKChu Paiz MD complet ed RENETTA Paiz MD complet ed
--- OUTSIDE RECORDS SUMMARY | 2024-06-01 11:36 | XMS_ITS | Data Portability ---
Author Organization [facility], [facility] Address [address] [place] [address] Care Team Providers Care Typewriter Operator Automatic Name Role Phone [facility] OTHER Assessment Encounter Date Assessment Date Assessment LastModified by Organization Details LastModified Time 06/08/2022 06/08/2022 Medically stable for discharge to community tomorrow to his home. pt has follow up apt with pcp. Family provides transportation to/from doctors appointments. 30 day supply of medications not needed. No DME needed. Time spent on discharge <30 minutes. Not available 06/08/2022 21:10:25 Plan of Treatment [...] and Address Organization Details Recorded Time Osteomyelitis 15181097 Active 2022 AGATHA RIZVI APRN [address], [place], [place], [address], [facility] 3 17:00:27 Type 2 diabetes mellitus 19134897 Active 2022 AGATHA RIZVI APRN [address], [place], [address], [facility] 3 17:00:33 Clostridium difficile colitis 132564051 Active 2022 AGATHA RIZVI APRN [address], [place], [address], [facility] 3 17:00:39 Hypertensive disorder 06892052 Active 2022 AGATHA RIZVI APRN [address], [place], [address], [facility] 3 17:00:45 Neuropathy 723592969 Active 2022 AGATHA RIZVI APRN [address], [place], [address], [facility] 3 17:00:54 Problem Notes None recorded. Medical [...] /min 97.6 [degF] 170.18 cm 24.6 kg/m2 70817 g 98 % 98 % 111 mm[Hg] 60 mm[Hg] AGATHA RIZVI APRN [address], [place], [address], [facility] 3 16:56:30 Date Recorded Body height Heart rate Respiratory rate Body temperature Body mass index (BMI) Body weight Oxygen saturation Oxygen saturation in Arterial blood by Pulse oximetry Systolic blood pressure Diastolic blood pressure Provider Name and Address Organization Details Last Updated DateTime 3 170.18 cm 86 /min 18 /min 97.8 [degF] 24.6 kg/m2 77656 g 96 % 96 % 132 mm[Hg] 76 mm[Hg] AGATHA RIZVI APRN [address], [place], [address], [facility] 3 17:30:11 Date Recorded Body height Heart rate Respiratory rate Body temperature Body mass index (BMI) Body weight Oxygen saturation Oxygen saturation in Arterial blood by Pulse oximetry Systolic blood pressure Diastolic blood pressure Provider Name and Address Organization Details Last Updated DateTime 3 170.18 cm 88 /min 18 /min 97.8 [degF] 24.6 kg/m2 71731 g 96 % 96 % 127 mm[Hg] 72 mm[Hg] AGATHA RIZVI APRN [address], [place], [address], [facility] 3 16:17:39 Date Recorded Body height Heart rate Respiratory rate Body temperature Body mass index (BMI) Body weight Oxygen saturation Oxygen saturation in Arterial blood by Pulse oximetry Systolic blood pressure Diastolic blood pressure Provider Name and Address Organization Details Last Updated DateTime 3 170.18 cm 80 /min 18 /min 97.8 [degF] 24.6 kg/m2 77986 g 96 % 96 % 122 mm[Hg] 70 mm[Hg] AGATHA RIZVI APRN [address], [place], [address], [facility] 3 21:00:56 Social History None recorded. Functional Status None recorded. Mental Status None recorded. Family History Nothing Reported. Medical History No medical history recorded. Past Encounters Encounter ID Performer Location Encounter Start Date Encounter Closed Date Diagnosis/Indication Diagnosis SNOMED-CT Code Diagnosis ICD10 Code Diagnosis Note [id number] RDAHA HERNANDEZ [employer] (DO [place] USE[place] [address]) [address] [place] [address] 05/31/2022 15:03:03 06/01/2022 12:26:37 Type 2 diabetes mellitus 83791827 E11.621 Z79.4 lantus 10 units dailyaccu checks qid Osteomyelitis 70385302 M 86.[address] [facility] Neuropathy 956862569 G62 .9 gabapentin 300 mg tid Hypertensive disorder 38 498537 I10 stable Clostridiu m difficile colitis 160763245 A04.72 continue : augmentin, doxycyclin e, and vancomycin til 06/26/22 [id number] AGATHA RIZVI [facility] [employer] (DO [place] USE[place] [address]) [address] [place] [facility] [place] [address] 06/04/2022 16:56:43 06/05/2022 12:22:32 Hypertensive disorder 41805813 I10 stable Clostridiu m difficile colitis 160882946 A04.72 continue : augmentin, doxycyclin e, and vancomycin til 06/26/22 Neuropathy 191804514 G62 .9 gabapentin 300 mg tid Osteomyelitis 37273632 M 86.[address] [facility] [id number] AGATHA RIZVI [facility] [employer] (DO NOT USE, [place] [address]) [address] [place] [address] 06/06/2022 14:38:01 06/06/2022 17:51:43 Type 2 diabetes mellitus 87197150 E11.621 Z79.4 lantus 10 units dailyaccu checks qid Osteomyelitis 70287714 M 86.[address] [facility] Neuropathy 702833157 G62 .9 gabapentin 300 mg tid Hypertensive disorder 38 541574 I10 stable [id number] AGATHA RIZVI [facility] [employer] (DO NOT USE, [place] [address]) [address] [place] [address] 06/08/2022 15:42:58 06/11/2022 12:21:39 Type 2 diabetes mellitus 48117461 E11.621 Z79.4 lantus 10 units dailyaccu checks qid.-30 day supply given follow up with pcp Neuropathy 006729246 G62 .9 gabapentin 300 mg tid-30 day supply given follow up with pcp Clostridiu m difficile colitis 462050192 A04.72 continue : augmentin, doxycyclin e, and vancomycin til 06/26/22-30 day supply given follow up with pcp Hypertensive disorder 38 956104 I10 [facility] Health Concerns Section Related Observation LastModified by [...] Moe 06/06/2022 1 *SELF PAY* [facility] 06/08/2022 1 *SELF PAY* [facility] Notes Date Note Type Note Provider Name and Address Organization Details Recorded Time 05/31/2022 text/html Today's visit is medically necessary for hospital transition of care to a fci setting to review current acute and chronic [...] APRN [address], [place], [address], [facility] 05/31/2022 17:03:25 06/04/2022 text/html Today's visit is medically necessary for hospital transition of care to a fci setting to review current acute and chronic [...] APRN [address], [place], [address], [facility] [facility] 06/04/2022 17:33:30 06/06/2022 text/html Today's visit is medically necessary for hospital transition of care to a fci setting to review current acute and chronic [...] APRN [address], [place], [address], [facility] 06/06/2022 16:18:43 06/08/2022 text/html Today's visit is medically necessary for patient discharge. Mr. Moe comes to [facility] because he required assistance from nursing while remaining in isolation for c diff. Patient was a high risk for falls and requires close monitoring of vital signs. Patient received fci services in order to maximize rehab potential, function, and safety. Pt feels confident to go home and continue regaining his strength and independence. Mr. Moe came to [facility] after being hospitalized for osteomyelitis and then being after treated with multiple antibiotics tested postive for cdiff and complete treated here at [place]. pmh: essential hypertension, type 2dm, hyperlipidemia, and diverticulitis. Medically stable for discharge to community tomorrow to his home. pt has follow up apt with pcp. Family provides transportation to/from doctors appointments. 30 day supply of medications not needed. No DME needed. Time spent on discharge <30 minutes. AGATHA RIZVI APRN [address], [place], [address], [facility] 06/08/2022 21:12:47
--- OUTSIDE RECORDS SUMMARY | 2024-06-01 11:36 | XMS_ITS | Data Portability ---
Author Organization [facility], Main Office Address [address] [place] [address] Care Team Providers Care Bar Captain Name Role Phone GALINA TATE Primary Care Provider Assessment Encounter Date Assessment Date Assessment LastModified by Organization Details LastModified Time 01/29/2023 01/29/2023 This note is dictated and transcribed by [employer]. [employer] Product Owner variances may occur. Despite proofreading, typographical errors [...] grade No observ ation record ed. [email or web address] [facility] [address] [place], [address], 09/06/2022 17:58:33 Result Notes None recorded. Problems Name Problem SNOMED Code Status Onset Date Resolution Date Notes Provider Name and Address Organization Details Recorded Time Benign prostatic hyperplasi a 490602383 Active 2022 Marcio Shukla MD [address] [address], [place], [address] , [facility] 3 10:26:38 Kidney stone 07411466 Active 2022 Marcio Shukla MD [address] [facility] [facility] [address], [place], [address] , [facility] 3 10:26:42 Vitamin B deficiency 02263926 Active 2022 Pretty dobson, [place] [facility] 3 14:32:15 Contractur e of left knee joint 9069982203938 00 Active 2022 Pretty Constantino null, [place] [facility] 3 14:32:26 Altered mental status 408844403 Active 2022 Pretty Constant[place] [facility] 3 14:32:34 Moderate cognitive impairment 273736764 Active 2022 Pretty Constant[place] [facility] 3 14:32:49 Contractur e of right knee joint 0769096851656 05 Active 2022 Pretty Constant[place] [facility] 3 14:33:00 Diverticul ar disease 631648700 Active 2022 Pretty Constantino null[place] [facility] 3 14:33:08 Essential hypertensi on 10685608 Active 2022 Pretty dobson, [place] [facility] 3 14:33:17 Diabetic peripheral neuropathy 761885536 Active 2022 Marcio Avalos DPM [address] [facility] [facility] [address], [place], [address] , [facility] 3 14:35:52 Hyperlipid emia 86817333 Active 2022 Pretty Constantino null[place] [facility] 3 14:36:18 Multiple joint pain 67997983 Active 2022 Pretty Constantino [place] [facility] 3 14:36:27 Sepsis 98589855 Active 2022 Pretty Constantino null[place] [facility] 3 14:36:37 Abnormal gait 08373318 Active 2022 Pretty [place] [facility] [place] [facility] 3 14:36:45 Clostridiu m difficile colitis 189416144 Active 2022 Pretty [place] [facility] 3 14:36:57 Neuropathy 183343082 Active 2022 Pretty [place] [facility] 3 14:37:07 Constipati on 90939866 Active 2022 Pretty [place] [facility] 3 14:37:16 Muscle weakness 04570846 Active 2022 Pretty [place] [facility] 3 14:37:25 Diarrhea 05732852 Active 2022 Pretty [place] [facility] 3 14:37:33 Chronic back pain 462615638 Active 2022 Pretty [place] [facility] 3 14:38:27 Dementia 38844203 Active 2022 Pretty Constant[place] null[place] [facility] 3 14:38:44 Flexion contractur e of the knee 860278349 Active 2022 Marcio Avalos DPM [address] [facility] [address], [place], [address] , [facility] 3 12:02:35 History of amputation of foot 955200527 Active 2022 Marcio Avalos DPM [address] [facility] [address], [place], [address] , [facility] 3 12:02:44 Problem Notes None recorded. Procedures Surgical History Date Name Laterality Status Provider Name and Address Organization Details Recorded Time 05/23/202 3 Anderson Catheter Removal completed Poonam Cervantes MA [facility] [employer] [facility] 08/28/2022 10:06:37 Imaging Results Imaging Date Name Status LastModified by Organiz ation Details LastModified Time 08/22/2022 XR, urogram, retrograde completed [email or web address] [facility] [address] [place], [address], 09/06/2022 17:58:33 Procedure Notes None recorded. Medical Equipment None Reported. Allergies Allergen ID Allergen Name Allergen Category Reaction Reaction Severity Criticality Documentation Date Start Date Code Code System Note Provider Name and Address Organization Details Recorded Time 58742 metformin medicatio n Not available Not available Not available 01/29/2023 6809 RxNorm Pretty Constantino [employer] [facility] 14:26:56 33101 glyburide medicatio n Not available Not available Not available 01/29/2023 4815 RxNorm Pretty Constantino [employer] [facility] [employer] [facility] 14:27:13 44150 lisinopri l medicatio n Not available Not available Not available 01/29/2023 04722 RxNorm Pretty [place] [facility] 14:27:29 Medications Name Sig Start Date Stop [...] Updated DateTime 01/29/2023 165.1 cm 32.4 kg/m2 62336.51 g Pretty Constantino [place] [facility] 01/29/2023 14:43:12 Date Recorded Heart rate Respiratory rate Oxygen saturation Oxygen saturation in Arterial blood by Pulse oximetry Systolic blood pressure Diastolic blood pressure Provider Name and Address Organization Details Last Updated DateTime 94 /min 14 /min 97 % 97 % 169 mm[Hg] 99 mm[Hg] Zoey Ortez [facility] [employer] [facility] 14:31:06 Social History Question Answer Notes LastModified by Organizat ion Details LastModified Time Tobacco Smoking Status Former Smoker Pretty dobson, [facility] [employer] [facility] 01/29/2023 14:43:37 What Is Your Level Of [...] SNOMED-CT Code Diagnosis ICD10 Code Diagnosis Note [id number] Marcio Shukla MD [facility] [place] [address] [facility], [address] [place] [address] 08/28/2022 09:32:55 08/28/2022 10:35:04 [id number] Marcio Avalos DPM [facility] [place] [address] [place] [address], [facility] [address] [place] [address] 01/29/2023 14:23:09 01/30/2023 13:52:10 Diabetic peripheral neuropathy 640058368 E11.40 Patient educated on neuropathy , diabetes, diabetic diet, and daily foot exams. Patient is to check feet daily for new wounds, blisters, redness to prevent infection and ulceration s to the feet. Patient will return to clinic in 3 months for diabetic foot workup.Rx diabetic shoes and inserts History of amputation of foot 870530955 Z89.439 bilateral feet Flexion co ntracture of the knee 375871048 M24.569 recommend follow-up with orthopedic Health Concerns Section Related Observation LastModified by Organization Detai ls LastModified Time None Recorded Concern Status LastModified by Organization Details LastModified Time None Recorded Advance Directives Directive None Recorded Payers Encounter Date Sequence Insurance Name Policy Number Policy Maldonado Covered Member ID Maldonado Member ID Guarantor Name 08/28/2022 1 [place] [facility] PUBLIC AID Maurice Moe [id number] Maurice Moe 08/28/2022 1 [place] Maurice Moe [id number] Maurice Moe 01/29/2023 1 [place] [facility] AID Maurice Moe [id number] Maurice Moe Notes Date Note Type Note [...] and 7 months ago [place] the [place] Patient now is living in a custodial facility with his . Patient denies any other complaints. Marcio Avalos DPM [address] [facility] [facility] [address], [place], [address], [place] [facility] [email or web address] 01/30/2023 12:02:57
--- OUTSIDE RECORDS SUMMARY | 2024-06-01 11:36 | XMS_ITS | Clinical Summary ---
Author Organization [facility] Address [address] [place] [address] Care Team Providers Care Carriage Dogger Name Role Phone Unavailable Primary Care Provider Unavailabl e Source Comments [facility],non-owned Affiliates and Associated Physician Practices is amultiple site organization consisting of ambulatory clinics and hospital sitesin [place], [place], [place] and [place]. This disclosure is being madepursuant to the Care Everywhere program and may not contain all information available regarding this patient. Last updated 17.[facility] [employer]™ Medical Allergies Active Allergy Reactions Criticality Noted Date [...] Comments Blood Pressure 164/78 05/01/2014 2:24 AM [employer] Pulse 90 05/01/2014 2:24 AM [employer] Temperature 36.9 C (98.5 F) 05/01/2014 12:01 AM [employer] Respiratory Rate - - Oxygen Saturation 100% 05/01/2014 2:24 AM [employer] Inhaled Oxygen Concentration - - Weight 99.8 kg (220 lb) 05/01/2014 12:01 AM [employer] Height 170.2 cm (5' 7 ) 05/01/2014 12:01 AM [employer] Body Mass Index 34.46 05/01/2014 12:01 AM [employer] Plan of Treatment Health Maintenance Due Date [...]
--- OUTSIDE RECORDS SUMMARY | 2024-06-01 11:36 | XMS_ITS | Continuity of Care Document ---
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 It does not include entries that were removed or entered in error. Problem Status Onset Date Problem Type Date of Resolution Comments Source Acute osteomyelitis of phalanx of toe Active Condition [facility] Altered mental status Active Condition [facility] Chest Wall Pain (ICD-9-CM 786.52) Active Condition [facility] Diabetes Mellitus * (ICD-9-CM 250.00) Active Condition [facility] Diabetic peripheral neuropathy Active Condition [facility] Diverticulitis of colon Active Condition [facility] DM - Diabetes mellitus Active Condition [facility] Fall Active Condition [facility] Hernia, Ventral (ICD-9-CM 553.20) Active Condition [facility] History of male erectile disorder Active Condition [facility] HTN * (ICD-9-CM 401.9) Active Condition [facility] Hyperlipidemia Active Condition [facility] Hypertension Active Condition [facility] Impotence Active Condition [facility] Knee pain Active Condition [facility] Microscopic Hematuria * (ICD-9-CM 599.7) Active Condition [facility] Mixed hyperlipidemia * (ICD-9-CM 272.2) Active Condition [facility] Muscle weakness Active Condition [facility] Noncompliance * (ICD-9-CM V15.81) Active Condition [facility] Obesity * (ICD-9-CM 278.00) Active Condition [facility] Sepsis Active Condition [facility] DIABETES MELLI W/O COMP TYP II Inactive Condition 04/15/2001 [facility] ECHINOCOCCOSIS NOS LIVER Inactive Condition 10/14/2001 [facility] HEMATURIA Inactive Condition 04/15/2001 [facility] INCISIONAL HERNIA Inactive Condition 10/14/2001 [facility] METABOLISM DISORDER NOS Inactive Condition 04/15/2001 [facility] Medications Combined list of outpatient medications from [facility] and [facility] facilities.Medications provided include 1) outpatient medications from the last 15 months, and 2) patient-reported medications. Medication Details Route Status Patient Instructions Prescription Expires Prescription Number Last Dispense Date Ordering Provider Order Date Order Qty Source FIDAXOMICIN TAB TAKE 200MG BY MOUTH TWICE DAILY - STOP AFTER MORNING DOSE ON 06-05-22. ORDER FOR REHAB FACILITY . ACTIVE BABAR WEBBER 2022 [facility] PANTOPRAZOL E NA 40MG TAB,EC TAKE ONE TABLET BY MOUTH TWICE A DAY BEFORE MEALS FOR EXCESSIV E PRODUCTI ON OF STOMACH ACID ORAL 05/31/2023 [id number] TRA PATEL 2022 60 [facility] Allergies, Adverse Reactions, Alerts Combined list of allergies from [facility] and [facility] facilities. It does not include entries that were removed or entered in error. Substance Category Reaction Severity Reaction type Status Date Reported Comments Source GLYBURIDE Propensity to adverse reactions to drug (finding) Eruption active 7 [facility] LISINOPRIL Propensity to adverse reactions to drug (finding) Eruption active 6 [facility] LISINOPRIL 2.5MG TAB Propensity to adverse reactions to drug (finding) Eruption active 9 [facility] METFORMIN Propensity to adverse reactions to drug (finding) Diarrhea active 9 [facility] METFORMIN Propensity to adverse reactions to drug (finding) Diarrhea, Eruption active 6 [facility] Immunizations Combined list of available immunizations from the [facility] and [facility] facilities. Immunization Series Date Given Administered By Site Reaction Lot Number CVX Code Drug Pastry Cook Apprentice Status Comments Source COVID-19 ([email or web address]), MRNA, LNP-S, PF, DEYANIRA-SUCROSE, 30 MCG/0.3 ML (AGES 12+ YEARS) 1 2022 309 complet ed [facility] N TDAP 2022 ANGEL ROCKWELL LEFT DELTO ID [id number] 115 complet ed [facility] INFLUENZA VACCINE, QUADRIVALENT, ADJUVANTED 2021 205 complet ed [facility] INFLUENZA, UNSPECIFIED FORMULATION 2016 88 complet ed [facility] INFLUENZA, UNSPECIFIED FORMULATION 2013 88 complet ed OUTSIDE FACILITY [facility] N TDAP 2011 115 complet ed [facility] N INFLUENZA, UNSPECIFIED FORMULATION 2007 88 complet ed [facility] N Encounters Combined list of: 1) Encounters from [facility] facilities going backup to the last 18 months, not all [place] inpatient encounters are included; 2) Encounters from the Department of Defense facilities going backup to 280 months. Location Location Details Encounter Type Encounter Number Reason For Visit Attending Provider ADM Date DC Date Status Disposition Source [facility] Outpatient Encounter [id number] 01/24 [facility] Outpatient Encounter [id number] 02/08 [facility] Outpatient Encounter [id number] 02/13 [facility] Outpatient Encounter [id number] 05/13 [facility] Outpatient Encounter [id number] 05/13 [facility] Outpatient Encounter [id number] 06/16 [facility] Outpatient Encounter [id number] 11/26 [facility] Outpatient Encounter [id number] SCOTTIE CEJA Sanjeev 01/29 [facility] TARGETED CASE MANAGEMENT [id number] MARCOS RIZVI 04/13 [facility] Outpatient Encounter [id number] 04/14 [facility] Outpatient Encounter [id number] ROGERIO MIDDLETON 04/17 [facility] Outpatient Encounter [id number] ROGERIO MIDDLETON 05/17 [facility] N Social History Combined list of available smoking, tobacco, and other social history from Department of Defense and Veterans Affairs facilities. Social History Type Response Date Comment Sour e Tobacco smoking status NHIS VA-TOBACCO FORMER USER 03/07/2022 [facility] History of tobacco use [place]-TOBACCO QUIT 1 5 YRS OR MORE 03/07/2022 [facility] History of tobacco use VA-TOBACCO FORMER USER 04/27/2020 [facility] History of tobacco use QUIT TOBACCO >7 Y EARS AGO 07/05/2017 [facility] History of tobacco use CURRENT TOBACCO USER 07/22/2015 [facility] History of tobacco use QUIT TOBACCO >7 Y EARS AGO 02/24/2014 [facility] History of tobacco use CURRENT TOBACCO USER 10/13/2012 [facility] History of tobacco use QUIT TOBACCO >7 Y EARS AGO 08/23/2006 [facility] History of tobacco use CURRENT NON-TOBAC CO USER-HX OF USE 04/15/2001 [facility] Advance Directives List of completed, amended, or rescinded Advance Directives on record at Department of Veterans Affairs facilities. An actual copy of the Directive is not included. Date Advance Directive Provider Source 04/27/2020 [facility]
--- OUTSIDE RECORDS SUMMARY | 2024-06-01 11:37 | XMS_ITS | Continuity of Care Document ---
Author Organization [facility] Address [address] [place] [address] [place] [address] Phone Care Team Providers Care Explosive Operator Grenade Name Role Phone Som Ceballos Unavailable Unavailable Procedures Procedure Date Eye Exam, New Patient Refraction Advance Directives Directive Yes / No Effective Date File Name No Information Encounters Encounter Description Practice Location Reason(s) For Visit Diagnoses Date Provider Providers Copied on Encounter [facility], [address] [place] [address] [address], [place], [place], [id number], [place] tel:[phone] [facility] No Information [phone] Lashawntalha Kearns. [address] [facility] [address], [place], [address], [place]. tel:[phone] Family History Family Member Type Diagnosis Age At Onset No Information Payers Payer name Insurance type Covered democrat ID Authoriza tion(s) Medicaid [facility] [id number] Social History Type Description Quantity Date Captured [...]
--- OUTSIDE RECORDS SUMMARY | 2024-06-01 11:37 | XMS_ITS | Patient Health Summary ---
Author Organization [facility] Address [address] [place] [address] Care Team Providers Care Veneer Jointer Helper Name Role Phone Unavailable Primary Care Provider Unavailabl e Note from [facility],non-owned Affiliates and Associated Physician Practices is amultiple site organization consisting of ambulatory clinics and hospital sitesin [place], [place], [place] and [place]. This disclosure is being madepursuant to the Care Everywhere program and may not contain all information available regarding this patient. Last updated 17.[facility] Allergies * Lisinopril(Urticaria) Medications * Be aware [...] Comments Blood Pressure 164/78 05/01/2014 2:24 AM CUT OUT PRESS OPERATOR Pulse 90 05/01/2014 2:24 AM CUT OUT PRESS OPERATOR Temperature 36.9 C (98.5 F) 05/01/2014 12:01 AM CUT OUT PRESS OPERATOR Respiratory Rate - - Oxygen Saturation 100% 05/01/2014 2:24 AM CUT OUT PRESS OPERATOR Inhaled Oxygen Concentration - - Weight 99.8 kg (220 lb) 05/01/2014 12:01 AM CUT OUT PRESS OPERATOR Height 170.2 cm (5' 7 ) 05/01/2014 12:01 AM CUT OUT PRESS OPERATOR Body Mass Index 34.46 05/01/2014 12:01 AM CUT OUT PRESS OPERATOR Procedures * CT CHEST W CONTRAST(Performed 05/01/2014) Performed for Trauma * COMPREHENSIVE METABOLIC PANEL(Performed 05/01/2014) * CBC W AUTO DIFFERENTIAL(Performed 05/01/2014) * EKG 12-LEAD(Performed 04/30/2014) Performed for Trauma Results * CT CHEST WITH CONTRAST (05/01/2014 1:12 AM CUT OUT PRESS OPERATOR) Anatomical Region Laterality Modality Chest Computed Tomogra phy 05/01/2014 1:45 AM CUT OUT PRESS OPERATOR Impressions 05/01/2014 1:48 AM CUT OUT PRESS OPERATOR No acute disease in the chest. Narrative 05/01/2014 1:48 AM CUT OUT PRESS OPERATOR CT EXAMINATION OF THE CHEST INDICATION: Chest [...] or syntax problems by a trained medical support specialist. For questions about the report, please contact [...] or syntax problems by a trained medical support specialist. For questions about the report, please contact the Radiology Department. IMPRESSION No acute disease in the chest. Nasir Zamora MD CT ORDERABLES * CBC W AUTO DIFFERENTIAL (05/01/2014 12:10 AM CUT OUT PRESS OPERATOR) WBC 8.1 4.4 - 10.7 x10^9/L 05/01/2014 12:24 AM CUT OUT PRESS OPERATOR [facility] RBC 4.64 3.80 - 5.40 x10^12/L 05/01/2014 12:24 AM [facility] Hemoglobin 13.6 12.0 - 17.6 gm/dL 05/01/2014 12:24 AM [facility] Hematocrit 38.2 35.2 - 51.7 % 05/01/2014 12:24 AM [facility] MCV 82.3 80.7 - 98.3 fl 05/01/2014 12:24 AM [facility] MCH 29.3 26.7 - 34.0 pg 05/01/2014 12:24 AM [facility] MCHC 35.6 30.8 - 35.9 gm/dL 05/01/2014 12:24 AM [facility] Platelet Count 168 153 - 416 x10^9/L 05/01/2014 12:24 AM [facility] RDW-CV 13.7 12.1 - 14.9 % 05/01/2014 12:24 AM [facility] MPV 11.0 9.4 - 12.9 fl 05/01/2014 12:24 AM [facility] Neutrophils % 57.9 44.0 - 73.0 % 05/01/2014 12:24 AM [facility] Lymphocytes % 30.6 20.0 - 43.0 % 05/01/2014 12:24 AM [facility] Monocytes % 10.1 5.0 - 13.0 % 05/01/2014 12:24 AM [facility] Eosinophils % 1.0 0.0 - 6.0 % 05/01/2014 12:[address] [facility] Basophils % 0.2 0.0 - 2.0 % 05/01/2014 12:24 AM [facility] Immature Granulocytes 0.2 0 - 1 % 05/01/2014 12:24 AM [facility] Neutrophil Absolute 4.70 2.01 - 7.14 x10^9/L 05/01/2014 12:24 AM [facility] Lymphocytes Absolute 2.49 1.07 - 3.94 x10^9/L 05/01/2014 12:24 AM [facility] Monocytes Absolute 0.82 0.26 - 1.07 x10^9/L 05/01/2014 12:24 AM [facility] Eosinophils Absolute 0.08 0 - 0.47 x10^9/L 05/01/2014 12:24 AM [facility] Basophils Absolute 0.02 0 - 0.08 x10^9/L 05/01/2014 12:24 AM [facility] Immature Granulocytes Absolute 0.02 0.00 - 0.06 x10^9/L 05/01/2014 12:24 AM [facility] Blood BLOOD SPECIMEN / Unknown 05/01/2014 12:[address] [facility] 05/01/2014 12:[address] [facility] Nasir Zamora MD LAB - HEMATOLOGY ORD ERABLES [facility] [address] [place] [address] * (ABNORMAL) COMPREHENSIVE METABOLIC PANEL (05/01/2014 12:[address] [facility]) Glucose 247(H) 74 - 106 mg/dL 05/01/2014 12:37 AM [facility] Sodium 137 136 - 145 mmol/L 05/01/2014 12:37 AM [facility] Potassium 4.2 3.5 - 5.1 mmol/L 05/01/2014 12:37 AM [facility] Chloride 103 98 - 107 mmol/L 05/01/2014 12:37 AM [facility] CO2 29 22 - 31 mmol/L 05/01/2014 12:37 AM [facility] Calcium 8.7 8.5 - 10.1 mg/dL 05/01/2014 12:37 AM [facility] Anion Gap 5 5 - 15 mmol/L 05/01/2014 12:37 AM [facility] BUN 20 7 - 21 mg/dL 05/01/2014 12:37 AM CUT OUT PRESS OPERATOR [facility] Creatinine 0.82 0.50 - 1.30 mg/dL 05/01/2014 12:37 AM CUT OUT PRESS OPERATOR [facility] eGFR by MDRD >60 >60 mL/min/1.7 3m2 05/01/2014 12:[address] [facility] eGFR by MDRD >60 >60 mL/min/1.7 3m2 05/01/2014 12:37 AM CUT OUT PRESS OPERATOR [facility] Alkaline Phosphatase 81 38 - 126 U/L 05/01/2014 12:37 AM CUT OUT PRESS OPERATOR [facility] ALT 32 12 - 78 U/L 05/01/2014 12:37 AM CUT OUT PRESS OPERATOR [facility] AST 28 5 - 40 U/L 05/01/2014 12:37 AM [facility] Protein Total 7.2 6.4 - 8.2 gm/dL 05/01/2014 12:[address] [facility] Albumin 3.9 3.4 - 5.0 gm/dL 05/01/2014 12:37 AM [facility] Bilirubin Total 0.4 0.2 - 1.0 mg/dL 05/01/2014 12:[address] [facility] Blood BLOOD SPECIMEN / Unknown 05/01/2014 12:10 AM CUT OUT PRESS OPERATOR 05/01/2014 12:[address] [facility] Nasir Zamora MD [facility] Organization Address City/State/ZIP Co de Phone Number [facility] [address] [place] [address] * EKG 12-LEAD (04/30/2014 11:[address] [facility]) Ventricular Rate 99 BPM [facility] Atrial Rate 99 BPM [facility] P-R Interval 176 ms [facility] QRS Duration ms 128 ms [facility] Q-T Interval ms 354 ms [facility] QTC Calculation (Bezet) 454 ms [facility] Calculated P Rankin 52 degrees [facility] Calculated R Rankin -28 degrees [facility] Calculated T Rankin 39 degrees [facility] Interpretation EKG Normal sinus rhythm with sinus arrhythmia Right bundle branch block Abnormal ECG No previous ECGs available Confirmed by ANGELA LEONG MD ([id number]) on 05/02/2014 12:04:32 PM [facility] 04/30/2014 11:5 2 PM CUT OUT PRESS OPERATOR 05/02/2014 12:04 PM CUT OUT PRESS OPERATOR Nasir Zamora MD ECG ORDERABLES [facility]
--- OUTSIDE RECORDS SUMMARY | 2024-06-01 11:37 | XMS_ITS | Referral Summary ---
Author Organization [facility] Address [address] [place] [address] Care Team Providers Care Registered Nurse Behavioral Health Name Role Phone Unavailable Primary Care Provider Unavailabl e Source Comments [facility],non-owned Affiliates and Associated Physician Practices is amultiple site organization consisting of ambulatory clinics and hospital sitesin [place], [place], [place] and [place]. This disclosure is being madepursuant to the Care Everywhere program and may not contain all information available regarding this patient. Last updated 17.[facility] [employer] Allergies Active Allergy Reactions Criticality Noted Date [...] Comments Blood Pressure 164/78 05/01/2014 2:24 AM LABORER FILTER PLANT Pulse 90 05/01/2014 2:24 AM LABORER FILTER PLANT Temperature 36.9 C (98.5 F) 05/01/2014 12:01 AM LABORER FILTER PLANT Respiratory Rate - - Oxygen Saturation 100% 05/01/2014 2:24 AM LABORER FILTER PLANT Inhaled Oxygen Concentration - - Weight 99.8 kg (220 lb) 05/01/2014 12:01 AM LABORER FILTER PLANT Height 170.2 cm (5' 7 ) 05/01/2014 12:01 AM LABORER FILTER PLANT Body Mass Index 34.46 05/01/2014 12:01 AM LABORER FILTER PLANT Plan of Treatment Not on file
--- NOTE | 2024-06-01 13:59 | ED.MALEGU ---
HPI - Male Genitourinary General Chief complaint: Urogenital-Male <Lyudmila Alvarado PA-C - Last Filed: 06/01/24 14:01> Stated complaint: hematuria <Lyudmila Alvarado PA-C - Last Filed: 06/01/24 14:01> Time Seen by Provider: 06/01/24 14:21 <Lyudmila Alvarado PA-C - Last Filed: 06/01/24 14:01> Focused HPI: 73 y/o M presents to the ED for hematuria that started this morning. Patient states the urine is fruit punch color. Denies passage of clots. Denies dysuria, abdominal pain, flank pain, fever. Patient states a similar episode a couple weeks ago and was evaluated at 3 outside hospitals and states no inconsolable was going on. He is scheduled to follow-up with urologist next week. denies history of bladder or prostate issues. He is not anticoagulated. GENERAL: Well-appearing, well-nourished, and in no acute distress. HEAD: Normocephalic, atraumatic. CHEST: Clear to auscultation. ?No respiratory distress. HEART: Regular rate and rhythm.? NEURO: ?Alert and oriented x3. Patient screened in triage and initial orders placed.? ?Additional care and disposition to be based upon?diagnostic testing and treatment. <Lyudmila Alvarado PA-C - Last Filed: 06/01/24 14:01> History of Present Illness HPI Narrative: Patient is a 73-year-old gentleman presents emergency department with chief complaint of hematuria. The patient had blood in his urine [facility] that [facility] has cleared up. Patient reports that the is a evaluate a previous hospitals and is supposed to follow-up with urology. <Rafael Garza MD - Last Filed: 06/01/24 18:46> Related Data Home medications: Home Medications ?Medication ?Instructions ?Recorded ?Confirmed ?Last Taken ?Type Lactobacillus acidophilus 100 mg PO BID 05/17/24 05/17/24 Unknown History (Acidophilus capsule) acetaminophen 325 mg capsule 650 mg PO Q6H PRN pain 05/17/24 05/17/24 Unknown History atorvastatin 40 mg tablet 40 mg PO QPM 05/17/24 05/17/24 Unknown History baclofen 10 mg tablet 10 mg PO DAILY 05/17/24 05/17/24 Unknown History bismuth subsalicylate 525 mg/15 mL 1,050 mg PO BID PRN diarrhea 05/17/24 05/17/24 Unknown History oral suspension (Kaopectate Ex Str (bismuth ss)) cholecalciferol (vitamin D3) 25 25 mcg PO DAILY 05/17/24 05/17/24 Unknown History mcg (1,000 unit) capsule (Vitamin D3) cholestyramine (with sugar) 4 gram 1 ea PO DAILY 05/17/24 05/17/24 Unknown History powder for susp in a packet cilostazol 100 mg tablet 100 mg PO BID 05/17/24 05/17/24 Unknown History dapagliflozin propanediol 10 mg 10 mg PO DAILY 05/17/24 05/17/24 Unknown History tablet (Farxiga) diclofenac sodium 1 % topical gel 2 g topical BID 05/17/24 05/17/24 Unknown History gabapentin 100 mg capsule 100 mg PO TID 05/17/24 05/17/24 Unknown History insulin glargine 100 unit/mL (3 20 unit subcut QPM 05/17/24 05/17/24 Unknown History mL) subcutaneous pen (Lantus Solostar U-100 Insulin) lactase 3,000 unit tablet (Dairy 6,000 unit PO QID PRN lactose 05/17/24 05/17/24 Unknown History Relief) intolerance loperamide 2 mg capsule 2 mg PO Q6H PRN loose stool 05/17/24 05/17/24 Unknown History (Anti-Diarrheal (loperamide)) multivitamin (Daily Multi-Vitamin 1 tablet PO DAILY 05/17/24 05/17/24 Unknown History tablet) ondansetron HCl 4 mg tablet 4 mg PO Q6H PRN nausea and vomiting 05/17/24 05/17/24 Unknown History pantoprazole 40 mg tablet,delayed 40 mg PO Q12H 05/17/24 05/17/24 Unknown History release sucralfate 1 gram tablet 1 g PO BID 05/17/24 05/17/24 Unknown History tamsulosin 0.4 mg capsule 0.4 mg PO DAILY 05/17/24 05/17/24 Unknown History trazodone 50 mg tablet 25 mg PO DAILY 05/17/24 05/17/24 Unknown History venlafaxine 75 mg tablet 75 mg PO DAILY 05/17/24 05/17/24 Unknown History vitamin B12 500 mcg-folic acid 400 1 tablet PO DAILY 05/17/24 05/17/24 Unknown History mcg tablet <Lyudmila Alvarado PA-C - Last Filed: 06/01/24 14:01> Allergies/Adverse reactions: Allergies Allergy/AdvReac Type Severity Reaction Status Date / Time glyburide Allergy Unknown Unknown Verified 05/17/24 15:16 lisinopril Allergy Unknown Unknown Verified 05/17/24 15:16 metformin Allergy Unknown Unknown Verified 05/17/24 15:16 <Lyudmila Alvarado PA-C - Last Filed: 06/01/24 14:01> Review of Systems Review of Systems: A 10 system review of systems was completed on the patient and is negative except for what is stated in the HPI. Nursing and ancillary documentation was reviewed. <Rafael Garza MD - Last Filed: 06/01/24 18:46> PMFSH Social History Social History: Social History Smoking packs per day: 3 Smoking cigarettes per day: 60.0 Years smoked: 20 Smoking pack-years: 60.00 Smoking status: Former smoker Tobacco type: cigarettes Alcohol intake: former Drinks per week: 120 Substance use: never Substance use type: does not use Last use: 3-4 cases per week Do You Feel Safe in your Home?: Yes Lack of Transportation: No Lack of Food: Never True Current Housing: I Have Housing Concerned About Future Housing: No Difficulty Paying Gas/Electric Bills: No Difficulty Paying for Meds: No Currently Unemployed: No Education: High School Diploma/GED Difficulty w/ Childcare or Family Care: No Spiritual care concerns: No <Lyudmila Alvarado PA-C - Last Filed: 06/01/24 14:01> Exam Narrative: GENERAL: Well-appearing, well-nourished, and in no acute distress. HEAD: Normocephalic, atraumatic. EYES: PERRLA and EOMI. ENT: Nares clear, no rhinorrhea or epistaxis. Mucous membranes moist. NECK: Supple. CHEST: Clear to auscultation. No respiratory distress. HEART: Regular rate and rhythm. No murmur heard. Normal peripheral pulses. ABDOMEN: Soft, nontender, nondistended, normal active bowel sounds. EXTREMITIES: Normal range of motion. No edema. SKIN: Warm, dry, no rash. NEURO: No focal deficits. Alert and oriented x3. PSYCH: Normal mood and affect. <Rafael Garza MD - Last Filed: 06/01/24 18:46> Course Vital Signs Vital signs: Vital Signs Temperature 36.7 C 06/01/24 10:44 Pulse Rate 78 06/01/24 10:44 Respiratory Rate 19 06/01/24 10:44 Blood Pressure 99/51 L 06/01/24 10:44 Pulse Oximetry 99 06/01/24 10:44 Temperature 36.7 C 06/01/24 10:44 Pulse Rate 85 06/01/24 16:22 Respiratory Rate 20 06/01/24 16:22 Blood Pressure 143/73 H 06/01/24 16:22 Pulse Oximetry 97 06/01/24 16:22 <Lyudmila Alvarado PA-C - Last Filed: 06/01/24 14:01> Vital Signs Temperature 36.7 C 06/01/24 10:44 Pulse Rate 78 06/01/24 10:44 Respiratory Rate 19 06/01/24 10:44 Blood Pressure 99/51 L 06/01/24 10:44 Pulse Oximetry 99 06/01/24 10:44 Temperature 36.7 C 06/01/24 10:44 Pulse Rate 85 06/01/24 16:22 Respiratory Rate 20 06/01/24 16:22 Blood Pressure 143/73 H 06/01/24 16:22 Pulse Oximetry 97 06/01/24 16:22 <Rafael Garza MD - Last Filed: 06/01/24 18:46> MDM - Male Genitourinary MDM Narrative Medical decision making narrative: Differential diagnosis includes hematuria, UTI, pyelonephritis Patient is not having active gross hematuria at this time White count is 12.2 electrolytes showed no renal failure Urinalysis showed 2+ leukocyte esterase greater than 100 white blood cells Patient be given a dose Rocephin in the emergency department to be discharged home on Keflex the patient follow-up with urology <Rafael Garza MD - Last Filed: 06/01/24 18:46> Lab Data Result diagrams: 06/01/24 14:03 06/01/24 14:03 <Lyudmila Alvarado PA-C - Last Filed: 06/01/24 14:01> Labs: Lab Results 06/01/24 06/01/24 Range/Units 14:03 14:36 WBC 12.2 H (4.5-10.0) K/mm3 RBC 4.14 L (4.6-6.20) M/mm3 Hgb 11.4 L (14.0-18.0) g/dL Hct 36.4 L (42.0-52.0) % MCV 87.9 (80-100) fl MCH 27.5 (26-34) pg MCHC 31.3 L (32-36) g/dl RDW 14.6 H (11.5-14.5) % Plt Count 269 (150-375) k/mm3 MPV 10.5 H (7.4-10.4) fl Immature Gran % (Auto) 0.5 (0-0.5) % Neut % (Auto) 65.1 (45.5-73.1) % Lymph % (Auto) 22.6 (18.3-44.2) % [place] % (Auto) 8.4 (2.6-8.5) % Eos % (Auto) 3.0 (0-4.4) % Baso % (Auto) 0.4 (0.2-1.2) % Lymph # (Auto) 2.75 (0.9-3.2) K/mm3 [place] # (Auto) 1.0 H (0.1-0.6) K/mm3 Eos # (Auto) 0.4 H (0-0.3) K/mm3 Baso # (Auto) 0.1 (0.0-0.1) K/mm3 Abs Immat Gran (auto) 0.06 H (0.00-0.031) K/mm3 Absolute Neuts (auto) 7.9 H (1.3-6.7) K/mm3 Absolute Nucleated RBC 0.000 (0.0-0.012) K/mm3 Nucleated RBC % 0.0 (0.0-0.2) % PT 13.4 (11.1-14.7) Seconds INR 1.0 APTT 29.8 (22.3-36.8) Seconds Sodium 144 (137-145) mmol/L Potassium 3.7 (3.4-5.0) mmol/L Chloride 106 (98-107) mmol/L Carbon Dioxide 27 (22-30) mmol/L Anion Gap 11 (4-12) mmol/L BUN 19 (9-20) mg/dL Creatinine 0.98 (0.7-1.3) mg/dL Estim Creat Clear Calc 50 ml/min Estimated GFR > 60 (59 - ) Glucose 120 H (65-110) mg/dL Calcium 8.8 (8.4-10.2) mg/dL Total Bilirubin 0.6 (0.2-1.3) mg/dL AST 20 (17-59) U/L ALT 16 (6-50) U/L Alkaline Phosphatase 96 (38-126) U/L Total Protein 7.0 (6.3-8.2) g/dL Albumin 3.8 (3.5-5.1) g/dL Urine Color Yellow (Yellow) Urine Appearance Turbid H (Clear) Urine pH 5.5 (5.0-9.0) Ur Specific [place] 1.031 (1.001-1.035) Urine Protein 2+ H (Negative) mg/dL Urine Glucose (UA) 3+ H (Negative) mg/dL Urine Ketones Negative (Negative) mg/dL Ur Blood (Man) 3+ H (Negative) Urine Nitrate Negative (Negative) Urine Bilirubin Negative (Negative) Urine Urobilinogen 0.2 (<2.0) mg/dL Add Ur Microanalysis Reviewed Leukocyte Esterase Rfl 2+ H (Negative) ANNMARIE/UL Urine RBC 21-50 H (0-2) /hpf Urine WBC >100 H (0-3) /hpf Ur Squamous Epith Cells Few (Few) /hpf Urine Bacteria None seen /hpf Urine Casts 3-5 <Lyudmila Alvarado PA-C - Last Filed: 06/01/24 14:01> Lab Results 06/01/24 06/01/24 Range/Units 14:03 14:36 WBC 12.2 H (4.5-10.0) K/mm3 RBC 4.14 L (4.6-6.20) M/mm3 Hgb 11.4 L (14.0-18.0) g/dL Hct 36.4 L (42.0-52.0) % MCV 87.9 (80-100) fl MCH 27.5 (26-34) pg MCHC 31.3 L (32-36) g/dl RDW 14.6 H (11.5-14.5) % Plt Count 269 (150-375) k/mm3 MPV 10.5 H (7.4-10.4) fl Immature Gran % (Auto) 0.5 (0-0.5) % Neut % (Auto) 65.1 (45.5-73.1) % Lymph % (Auto) 22.6 (18.3-44.2) % [place] % (Auto) 8.4 (2.6-8.5) % Eos % (Auto) 3.0 (0-4.4) % Baso % (Auto) 0.4 (0.2-1.2) % Lymph # (Auto) 2.75 (0.9-3.2) K/mm3 [place] # (Auto) 1.0 H (0.1-0.6) K/mm3 Eos # (Auto) 0.4 H (0-0.3) K/mm3 Baso # (Auto) 0.1 (0.0-0.1) K/mm3 Abs Immat Gran (auto) 0.06 H (0.00-0.031) K/mm3 Absolute Neuts (auto) 7.9 H (1.3-6.7) K/mm3 Absolute Nucleated RBC 0.000 (0.0-0.012) K/mm3 Nucleated RBC % 0.0 (0.0-0.2) % PT 13.4 (11.1-14.7) Seconds INR 1.0 APTT 29.8 (22.3-36.8) Seconds Sodium 144 (137-145) mmol/L Potassium 3.7 (3.4-5.0) mmol/L Chloride 106 (98-107) mmol/L Carbon Dioxide 27 (22-30) mmol/L Anion Gap 11 (4-12) mmol/L BUN 19 (9-20) mg/dL Creatinine 0.98 (0.7-1.3) mg/dL Estim Creat Clear Calc 50 ml/min Estimated GFR > 60 (59 - ) Glucose 120 H (65-110) mg/dL Calcium 8.8 (8.4-10.2) mg/dL Total Bilirubin 0.6 (0.2-1.3) mg/dL AST 20 (17-59) U/L ALT 16 (6-50) U/L Alkaline Phosphatase 96 (38-126) U/L Total Protein 7.0 (6.3-8.2) g/dL Albumin 3.8 (3.5-5.1) g/dL Urine Color Yellow (Yellow) Urine Appearance Turbid H (Clear) Urine pH 5.5 (5.0-9.0) Ur Specific [place] 1.031 (1.001-1.035) Urine Protein 2+ H (Negative) mg/dL Urine Glucose (UA) 3+ H (Negative) mg/dL Urine Ketones Negative (Negative) mg/dL Ur Blood (Man) 3+ H (Negative) Urine Nitrate Negative (Negative) Urine Bilirubin Negative (Negative) Urine Urobilinogen 0.2 (<2.0) mg/dL Add Ur Microanalysis Reviewed Leukocyte Esterase Rfl 2+ H (Negative) ANNMARIE/UL Urine RBC 21-50 H (0-2) /hpf Urine WBC >100 H (0-3) /hpf Ur Squamous Epith Cells Few (Few) /hpf Urine Bacteria None seen /hpf Urine Casts 3-5 <Rafael Garza MD - Last Filed: 06/01/24 18:46> Discharge Plan Discharge Clinical Impression: Urinary tract infection <Lyudmila Alvarado PA-C - Last Filed: 06/01/24 14:01> Patient Disposition: [place] [facility] <Lyudmila Alvarado PA-C - Last Filed: 06/01/24 14:01> Condition: Stable <Lyudmila Alvarado PA-C - Last Filed: 06/01/24 14:01> Instructions: Antibiotic Form, Urinary Tract Infection in Men (ED) <Lyudmila Alvarado PA-C - Last Filed: 06/01/24 14:01> Additional Instructions: Please follow-up with Urology per your original plan of discharge from the hospital earlier this month. There is no gross hematuria at this time. There does appear to be a urinary tract infection that he will be started on antibiotics for <Lyudmila Alvarado PA-C - Last Filed: 06/01/24 14:01> Patient Language: Cymraes <Lyudmila Alvarado PA-C - Last Filed: 06/01/24 14:01> Prescriptions: New cephalexin 500 mg capsule 500 mg PO Q12H 7 Days Qty: 14 0RF No Action atorvastatin 40 mg tablet 40 mg PO QPM acetaminophen 325 mg capsule 650 mg PO Q6H PRN (Reason: pain) Patient Comments: For unspecified knee pain Acidophilus Capsule 100 mg PO BID baclofen 10 mg tablet 10 mg PO DAILY cholestyramine (with sugar) 4 gram powder in packet 1 ea PO DAILY cilostazol 100 mg tablet 100 mg PO BID dapagliflozin propanediol [Farxiga] 10 mg tablet 10 mg PO DAILY gabapentin 100 mg capsule 100 mg PO TID loperamide [Anti-Diarrheal (loperamide)] 2 mg capsule 2 mg PO Q6H PRN (Reason: loose stool) insulin glargine [Lantus Solostar U-100 Insulin] 100 unit/mL (3 mL) insulin pen 20 unit subcut QPM Kaopectate Ex Str (bismuth ss) 525 mg/15 mL suspension 1,050 mg PO BID PRN (Reason: diarrhea) lactase [Dairy Relief] 3,000 unit tablet 6,000 unit PO QID PRN (Reason: lactose intolerance) Rx Instructions: administer with meals and/or snacks multivitamin [Daily Multi-Vitamin] Tablet 1 tablet PO DAILY ondansetron HCl 4 mg tablet 4 mg PO Q6H PRN (Reason: nausea and vomiting) pantoprazole 40 mg tablet,delayed release (DR/EC) 40 mg PO Q12H sucralfate 1 gram tablet 1 g PO BID tamsulosin 0.4 mg capsule 0.4 mg PO DAILY trazodone 50 mg tablet 25 mg PO DAILY venlafaxine 75 mg tablet 75 mg PO DAILY vitamin T58-[id number] acid 500-400 mcg tablet 1 tablet PO DAILY Rx Instructions: administer with a meal cholecalciferol (vitamin D3) [Vitamin D3] 25 mcg (1,000 unit) capsule 25 mcg PO DAILY diclofenac sodium 1 % gel 2 g topical BID Rx Instructions: apply to single elbow, wrist or hand; for hand includes palm/fingers/back of hand carvedilol [Coreg] 12.5 mg Tablet 12.5 mg PO Q12HR Qty: 30 0RF amlodipine [Norvasc] 5 mg tablet 5 mg PO DAILY Qty: 30 0RF <Lyudmila Alvarado PA-C - Last Filed: 06/01/24 14:01> Follow-up/Referrals: Ampadu,MD Ian [Primary Care Provider] - Srinivasan Bustillo MD [Physician] - <Lyudmila Alvarado PA-C - Last Filed: 06/01/24 14:01> Time of Disposition: 15:15 <Lyudmila Alvarado PA-C - Last Filed: 06/01/24 14:01> 15:15 <Rafael Garza MD - Last Filed: 06/01/24 18:46>
[2024-06-01 14:17] LABS: Basophils Absolute Auto 0.1 K/mm3 (0.0-0.1); Basophils Percent Auto 0.4 % (0.2-1.2); Eosinophils Absolute Auto 0.4 K/mm3 (0-0.3); Hematocrit 36.4 % (42.0-52.0); Hemoglobin 11.4 g/dL (14.0-18.0); Immature Granulocyte Absolute 0.06 K/mm3 (0.00-0.031); Immature Granulocyte Percent A 0.5 % (0-0.5); Lymphocytes Absolute Auto 2.75 K/mm3 (0.9-3.2); Lymphocytes Percent Auto 22.6 % (18.3-44.2); Mean Corpuscular HGB Conc 31.3 g/dl (32-36); Mean Corpuscular Hemoglobin 27.5 pg (26-34); Mean Corpuscular Volume 87.9 fl (80-100); Mean Platelet Volume 10.5 fl (7.4-10.4); Monocytes Percent Auto 8.4 % (2.6-8.5); Neutrophils Absolute Auto 7.9 K/mm3 (1.3-6.7); Neutrophils Percent Auto 65.1 % (45.5-73.1); Platelet Count Result 269 k/mm3 (150-375); Red Blood Count 4.14 M/mm3 (4.6-6.20); Red Cell Distribution Width 14.6 % (11.5-14.5); White Blood Count 12.2 K/mm3 (4.5-10.0)
[2024-06-01 14:29] LABS: Alanine Aminotransferase 16 U/L (6-50); Albumin Level 3.8 g/dL (3.5-5.1); Alkaline Phosphatase 96 U/L (38-126); Anion Gap 11 mmol/L (4-12); Aspartate Amino Transferase 20 U/L (17-59); Bilirubin,Total 0.6 mg/dL (0.2-1.3); Blood Urea Nitrogen 19 mg/dL (9-20); Calcium 8.8 mg/dL (8.4-10.2); Carbon Dioxide 27 mmol/L (22-30); Chloride 106 mmol/L (98-107); Estimated CRCL calculation 50 ml/min; Estimated Glomerular Filt Rate > 60; Glucose 120 mg/dL (65-110); Potassium 3.7 mmol/L (3.4-5.0); Sodium 144 mmol/L (137-145)
[2024-06-01 14:32] LABS: Prothrombin Time 13.4 Seconds (11.1-14.7)
[2024-06-01 14:33] LABS: Partial Thromboplastin Time 29.8 Seconds (22.3-36.8)
[2024-06-01 14:56] LABS: Add Urine Microscopic? YES; Appearance Urine Turbid (Clear); Bacteria Urine None Seen /hpf; Bilirubin Urine Negative (Negative); Blood Urine 3+ (Negative); Color Urine Yellow (Yellow); Glucose Urine UA 3+ mg/dL (Negative); Ketones Urine Negative (Negative); Leukocyte Esterase Ur 2+ LEU/UL (Negative); Need Manual Microscopic Reviewed; Nitrate Urine Negative (Negative); Protein Urine 2+ mg/dL (Negative); RBC Urine 21-50 /hpf (0-2); Specific Grav Ur 1.031 (1.001-1.035); Squamous Epithelial Cell Urine Few /hpf (Few); Urobilinogen Urine 0.2 mg/dL (<2.0); WBC Urine >100 /hpf (0-3); pH Urine 5.5 (5.0-9.0)
[2024-06-01 15:42] VITALS: BP 137/72; PULSE 82; RESP 20; O2SAT 95
[2024-06-01 16:22] VITALS: BP 143/73; PULSE 85; RESP 20; O2SAT 97
--- OUTSIDE RECORDS SUMMARY | 2024-06-01 16:47 | XMS_ITS | Clinical Summary ---
Author Organization [facility] Address [address] [place] [address] Care Team Providers Care Blind Escort Name Role Phone Unavailable Primary Care Provider Unavailabl e Source Comments [facility],non-owned Affiliates and Associated Physician Practices is amultiple site organization consisting of ambulatory clinics and hospital sitesin [place], [place], [place] and [place]. This disclosure is being madepursuant to the Care Everywhere program and may not contain all information available regarding this patient. Last updated 17.[facility] [employer] Allergies Active Allergy Reactions Criticality Noted Date [...] Comments Blood Pressure 164/78 05/01/2014 2:24 AM FLAT SORTING MACHINE CLERK Pulse 90 05/01/2014 2:24 AM FLAT SORTING MACHINE CLERK Temperature 36.9 C (98.5 F) 05/01/2014 12:01 AM FLAT SORTING MACHINE CLERK Respiratory Rate - - Oxygen Saturation 100% 05/01/2014 2:24 AM FLAT SORTING MACHINE CLERK Inhaled Oxygen Concentration - - Weight 99.8 kg (220 lb) 05/01/2014 12:01 AM FLAT SORTING MACHINE CLERK Height 170.2 cm (5' 7 ) 05/01/2014 12:01 AM FLAT SORTING MACHINE CLERK Body Mass Index 34.46 05/01/2014 12:01 AM FLAT SORTING MACHINE CLERK Plan of Treatment Health Maintenance Due Date [...]
--- OUTSIDE RECORDS SUMMARY | 2024-06-01 16:48 | XMS_ITS | Patient Health Summary ---
Author Organization [facility] Address [address] [place] [address] Care Team Providers Care Fast Food Fry Cook Name Role Phone Unavailable Primary Care Provider Unavailabl e Note from [facility],non-owned Affiliates and Associated Physician Practices is amultiple site organization consisting of ambulatory clinics and hospital sitesin [place], [place], [place] and [place]. This disclosure is being madepursuant to the Care Everywhere program and may not contain all information available regarding this patient. Last updated 17.[facility] Allergies * Lisinopril(Urticaria) Medications * Be aware [...] Comments Blood Pressure 164/78 05/01/2014 2:24 AM INSTRUCTOR OF EDUCATION Pulse 90 05/01/2014 2:24 AM INSTRUCTOR OF EDUCATION Temperature 36.9 C (98.5 F) 05/01/2014 12:01 AM INSTRUCTOR OF EDUCATION Respiratory Rate - - Oxygen Saturation 100% 05/01/2014 2:24 AM INSTRUCTOR OF EDUCATION Inhaled Oxygen Concentration - - Weight 99.8 kg (220 lb) 05/01/2014 12:01 AM INSTRUCTOR OF EDUCATION Height 170.2 cm (5' 7 ) 05/01/2014 12:01 AM INSTRUCTOR OF EDUCATION Body Mass Index 34.46 05/01/2014 12:01 AM INSTRUCTOR OF EDUCATION Procedures * CT CHEST W CONTRAST(Performed 05/01/2014) Performed for Trauma * COMPREHENSIVE METABOLIC PANEL(Performed 05/01/2014) * CBC W AUTO DIFFERENTIAL(Performed 05/01/2014) * EKG 12-LEAD(Performed 04/30/2014) Performed for Trauma Results * CT CHEST WITH CONTRAST (05/01/2014 1:12 AM INSTRUCTOR OF EDUCATION) Anatomical Region Laterality Modality Chest Computed Tomogra phy 05/01/2014 1:45 AM INSTRUCTOR OF EDUCATION Impressions 05/01/2014 1:48 AM INSTRUCTOR OF EDUCATION No acute disease in the chest. Narrative 05/01/2014 1:[address] EXAMINATION OF THE CHEST INDICATION: Chest [...] or syntax problems by a trained medical doctor md. For questions about the report, please contact [...] or syntax problems by a trained medical doctor md. For questions about the report, please contact the Radiology Department. IMPRESSION No acute disease in the chest. Nasir Zamora MD CT ORDERABLES * CBC W AUTO DIFFERENTIAL (05/01/2014 12:10 AM INSTRUCTOR OF EDUCATION) WBC 8.1 4.4 - 10.7 x10^9/L 05/01/2014 12:24 AM INSTRUCTOR OF EDUCATION [facility] RBC 4.64 3.80 - 5.40 x10^12/L 05/01/2014 12:24 AM [facility] Hemoglobin 13.6 12.0 - 17.6 gm/dL 05/01/2014 12:24 AM [facility] Hematocrit 38.2 35.2 - 51.7 % 05/01/2014 12:24 AM [facility] MCV 82.3 80.7 - 98.3 fl 05/01/2014 12:24 AM [facility] MCH 29.3 26.7 - 34.0 pg 05/01/2014 12:24 AM [facility] MCHC 35.6 30.8 - 35.9 gm/dL 05/01/2014 12:24 AM [facility] Platelet Count 168 153 - 416 x10^9/L 05/01/2014 12:24 AM [facility] RDW-CV 13.7 12.1 - 14.9 % 05/01/2014 12:24 AM [facility] MPV 11.0 9.4 - 12.9 fl 05/01/2014 12:24 AM [facility] Neutrophils % 57.9 44.0 - 73.0 % 05/01/2014 12:24 AM [facility] Lymphocytes % 30.6 20.0 - 43.0 % 05/01/2014 12:24 AM [facility] Monocytes % 10.1 5.0 - 13.0 % 05/01/2014 12:24 AM [facility] Eosinophils % 1.0 0.0 - 6.0 % 05/01/2014 12:24 AM [facility] Basophils % 0.2 0.0 - 2.0 % 05/01/2014 12:24 AM [facility] Immature Granulocytes 0.2 0 - 1 % 05/01/2014 12:24 AM [facility] Neutrophil Absolute 4.70 2.01 - 7.14 x10^9/L 05/01/2014 12:24 AM [facility] Lymphocytes Absolute 2.49 1.07 - 3.94 x10^9/L 05/01/2014 12:24 AM [facility] Monocytes Absolute 0.82 0.26 - 1.07 x10^9/L 05/01/2014 12:24 AM [facility] Eosinophils Absolute 0.08 0 - 0.47 x10^9/L 05/01/2014 12:24 AM [facility] Basophils Absolute 0.02 0 - 0.08 x10^9/L 05/01/2014 12:24 AM [facility] Immature Granulocytes Absolute 0.02 0.00 - 0.06 x10^9/L 05/01/2014 12:24 AM [facility] Blood BLOOD SPECIMEN / Unknown 05/01/2014 12:10 AM [facility] 05/01/2014 12:15 AM [facility] Nasir Zamora MD LAB - HEMATOLOGY ORD ERABLES [facility] [address] [place] [address] * (ABNORMAL) COMPREHENSIVE METABOLIC PANEL (05/01/2014 12:10 AM [facility]) Glucose 247(H) 74 - 106 mg/dL 05/01/2014 12:37 AM [facility] Sodium 137 136 - 145 mmol/L 05/01/2014 12:37 AM [facility] Potassium 4.2 3.5 - 5.1 mmol/L 05/01/2014 12:37 AM [facility] Chloride 103 98 - 107 mmol/L 05/01/2014 12:37 AM [facility] CO2 29 22 - 31 mmol/L 05/01/2014 12:37 AM [facility] Calcium 8.7 8.5 - 10.1 mg/dL 05/01/2014 12:37 AM [facility] Anion Gap 5 5 - 15 mmol/L 05/01/2014 12:37 AM [facility] BUN 20 7 - 21 mg/dL 05/01/2014 12:37 AM INSTRUCTOR OF EDUCATION [facility] Creatinine 0.82 0.50 - 1.30 mg/dL 05/01/2014 12:37 AM INSTRUCTOR OF EDUCATION [facility] eGFR by MDRD >60 >60 mL/min/1.7 3m2 05/01/2014 12:37 AM [facility] eGFR by MDRD >60 >60 mL/min/1.7 3m2 05/01/2014 12:37 AM INSTRUCTOR [employer] EDUCATION [facility] Alkaline Phosphatase 81 38 - 126 U/L 05/01/2014 12:37 AM IN[employer] EDUCATION [facility] ALT 32 12 - 78 U/L 05/01/2014 12:37 AM INSTRUCTOR [employer] EDUCATION [facility] AST 28 5 - 40 U/L 05/01/2014 12:37 AM [facility] Protein Total 7.2 6.4 - 8.2 gm/dL 05/01/2014 12:37 AM [facility] Albumin 3.9 3.4 - 5.0 gm/dL 05/01/2014 12:37 AM [facility] Bilirubin Total 0.4 0.2 - 1.0 mg/dL 05/01/2014 12:37 AM [facility] Blood BLOOD SPECIMEN / Unknown 05/01/2014 12:10 AM INSTRUCTOR OF EDUCATION 05/01/2014 12:15 AM [facility] Nasir Zamora MD [facility] Organization Address City/State/ZIP Co de Phone Number [facility] [address] [place] [address] * EKG 12-LEAD (04/30/2014 11:52 PM [facility]) Ventricular Rate 99 BPM [facility] Atrial Rate 99 BPM [facility] P-R Interval 176 ms [facility] QRS Duration ms 128 ms [facility] Q-T Interval ms 354 ms [facility] QTC Calculation (Bezet) 454 ms [facility] Calculated P [place] 52 degrees [facility] Calculated R [place] -28 degrees [facility] Calculated T [place] 39 degrees [facility] Interpretation EKG Normal sinus rhythm with sinus arrhythmia Right bundle branch block Abnormal ECG No previous ECGs available Confirmed by ANGELA LEONG MD ([id number]) on 05/02/2014 12:04:32 PM [facility] 04/30/2014 11:5 2 PM INSTRUCTOR OF EDUCATION 05/02/2014 12:04 PM INSTRUCTOR OF EDUCATION Nasir Zamora MD ECG ORDERABLES [facility]
--- OUTSIDE RECORDS SUMMARY | 2024-06-01 16:48 | XMS_ITS | Continuity of Care Document ---
Author Name [facility] Organization [facility] Care Team Providers Care Benzene Operator Name Role Phone [facility] Unavailable Unavailable Problems Combined list of problems from Department of Defense and Veterans Affairs facilities. It does not include entries that were removed or entered in error. Problem Status Onset Date Problem Type Date of Resolution Comments Source Acute osteomyelitis of phalanx of toe Active Condition [facility] Altered mental status Active Condition [facility] Chest Wall Pain (ICD-9-CM 786.52) Active Condition [facility] Diabetes Mellitus * (ICD-9-CM 250.00) Active Condition [facility] Diabetic peripheral neuropathy Active Condition [facility] Diverticulitis of colon Active Condition [facility] DM - Diabetes mellitus Active Condition [facility] Fall Active Condition [facility] Hernia, Ventral (ICD-9-CM 553.20) Active Condition [facility] History of male erectile disorder Active Condition [facility] HTN * (ICD-9-CM 401.9) Active Condition [facility] Hyperlipidemia Active Condition [facility] Hypertension Active Condition [facility] Impotence Active Condition [facility] Knee pain Active Condition [facility] Microscopic Hematuria * (ICD-9-CM 599.7) Active Condition [facility] Mixed hyperlipidemia * (ICD-9-CM 272.2) Active Condition [facility] Muscle weakness Active Condition [facility] Noncompliance * (ICD-9-CM V15.81) Active Condition [facility] Obesity * (ICD-9-CM 278.00) Active Condition [facility] Sepsis Active Condition [facility] DIABETES MELLI W/O COMP TYP II Inactive Condition 04/15/2001 [facility] ECHINOCOCCOSIS NOS LIVER Inactive Condition 10/14/2001 [facility] HEMATURIA Inactive Condition 04/15/2001 [facility] INCISIONAL HERNIA Inactive Condition 10/14/2001 [facility] METABOLISM DISORDER NOS Inactive Condition 04/15/2001 [facility] Medications Combined list of outpatient medications from [facility] and [facility] facilities.Medications provided include 1) outpatient medications from the last 15 months, and 2) patient-reported medications. Medication Details Route Status Patient Instructions Prescription Expires Prescription Number Last Dispense Date Ordering Provider Order Date Order Qty Source FIDAXOMICIN TAB TAKE 200MG BY MOUTH TWICE DAILY - STOP AFTER MORNING DOSE ON 06-05-22. ORDER FOR REHAB FACILITY . ACTIVE BABAR WEBBER 2022 [facility] PANTOPRAZOL E NA 40MG TAB,EC TAKE ONE TABLET BY MOUTH TWICE A DAY BEFORE MEALS FOR EXCESSIV E PRODUCTI ON OF STOMACH ACID ORAL 05/31/2023 [id number] TRA PATEL 2022 60 [facility] Allergies, Adverse Reactions, Alerts Combined list of allergies from [facility] and [facility] facilities. It does not include entries that were removed or entered in error. Substance Category Reaction Severity Reaction type Status Date Reported Comments Source GLYBURIDE Propensity to adverse reactions to drug (finding) Eruption active 7 [facility] LISINOPRIL Propensity to adverse reactions to drug (finding) Eruption active 6 [facility] LISINOPRIL 2.5MG TAB Propensity to adverse reactions to drug (finding) Eruption active 9 [facility] METFORMIN Propensity to adverse reactions to drug (finding) Diarrhea active 9 [facility] METFORMIN Propensity to adverse reactions to drug (finding) Diarrhea, Eruption active 6 [facility] Immunizations Combined list of available immunizations from the [facility] and [facility] facilities. Immunization Series Date Given Administered By Site Reaction Lot Number CVX Code Drug Stucco Applicator Status Comments Source COVID-19 (interspireSubmit), MRNA, LNP-S, PF, DEYANIRA-SUCROSE, 30 MCG/0.3 ML (AGES 12+ YEARS) 1 2022 309 complet ed [facility] N TDAP 2022 ANGEL ROCWKELL LEFT DELTO ID [id number] 115 complet ed [facility] INFLUENZA VACCINE, QUADRIVALENT, ADJUVANTED 2021 205 complet ed [facility] INFLUENZA, UNSPECIFIED FORMULATION 2016 88 complet ed [facility] INFLUENZA, UNSPECIFIED FORMULATION 2013 88 complet ed OUTSIDE FACILITY [facility] N TDAP 2011 115 complet ed [facility] INFLUENZA, UNSPECIFIED FORMULATION 2007 88 complet ed [facility] N Encounters Combined list of: 1) Encounters from Department of [facility] Affairs facilities going backup to the last 18 months, not all [place] inpatient encounters are included; 2) Encounters from the Department of Defense facilities going backup to 280 months. Location Location Details Encounter Type Encounter Number Reason For Visit Attending Provider ADM Date DC Date Status Disposition Source [facility] Outpatient Encounter [id number] 01/24 [facility] Outpatient Encounter [id number] 02/08 [facility] Outpatient Encounter [id number] 02/13 [facility] Outpatient Encounter [id number] 05/13 [facility] Outpatient Encounter [id number] 05/13 [facility] Outpatient Encounter [id number] 06/16 [facility] Outpatient Encounter [id number] 11/26 [facility] Outpatient Encounter [id number] SCOTTIE CEJA Sanjeev 01/29 [facility] TARGETED CASE MANAGEMENT [id number] MARCOS RIZVI 04/13 [facility] Outpatient Encounter [id number] 04/14 [facility] Outpatient Encounter [id number] ROGERIO MIDDLETON 04/17 [facility] Outpatient Encounter [id number] ROGERIO MIDDLETON 05/17 [facility] Social History Combined list of available smoking, tobacco, and other social history from Department of Defense and Veterans Affairs facilities. Social History Type Response Date Comment Sour e Tobacco smoking status NHIS [facility]-TOBACCO FORMER USER 03/07/2022 [facility] History of tobacco use [place]-TOBACCO QUIT 1 5 YRS OR MORE 03/07/2022 [facility] History of tobacco use VA-TOBACCO FORMER USER 04/27/2020 [facility] History of tobacco use QUIT TOBACCO >7 Y EARS AGO 07/05/2017 [facility] History of tobacco use CURRENT TOBACCO USER 07/22/2015 [facility] History of tobacco use QUIT TOBACCO >7 Y EARS AGO 02/24/2014 [facility] History of tobacco use CURRENT TOBACCO USER 10/13/2012 [facility] History of tobacco use QUIT TOBACCO >7 Y EARS AGO 08/23/2006 [facility] History of tobacco use CURRENT NON-TOBAC CO USER-HX OF USE 04/15/2001 [facility] Advance Directives List of completed, amended, or rescinded Advance Directives on record at Department of Veterans Affairs facilities. An actual copy of the Directive is not included. Date Advance Directive Provider Source 04/27/2020 [facility]
--- OUTSIDE RECORDS SUMMARY | 2024-06-01 16:48 | XMS_ITS | CONTINUITY OF CARE DOCUMENT ---
Author Name jon webb Address Unknown Organization [facility] Address [address] [place] [address] Phone [phone] Care Team Providers Care Lead Applier Name Role Phone Filipe Ramirez MD Unavailable Jaymie Paiz MD Unavailable GALINA TATE MD Unavailable PROBLEMS Condition Status [...] In-person encounter Office Visit Filipe Ramirez MD [facility] - In-person encounter Office Visit Jaymie Paiz MD [facility] Cardiology examination - In-person encounter Office Visit Jaymie Paiz MD [facility] - In-person encounter Office Visit Jaymie Paiz MD [facility] OSTEOARTHRITIS, Bilateral Knees - In-person encounter Office Visit Jaymie Paiz MD [facility] Cardiology examinationPVDLeg EdemaDiabetes, Type 2G E [...] nkLogbrittny blood pressure, systolic 124 mm[Hg] [facility] blood pressure, diastolic 66 mm[Hg] Naya [place] [...] tablet by mouth once a day Patricia Narayananwvglmichael [facility] cilostazol 100 mg tablet active TAKE 1 TABLET BY MOUTH TWICE A DAY Jaymie Paiz MD Lipitor 20 mg tablet active TAKE 1 TABLET BY MOUTH EVERY DAY Patriciajoey Narayananmiglia [facility] tamsulosin 0.4 mg capsule active William oxycodone 5 mg tablet completed TAKE 1 TABLET BY MOUTH EVERY 6 HOURS NEEDED FOR BREAKTHROUGH PAIN - Patriciajoey Narayananmiglmichael [facility] lactulose 10 gram/15 mL solution completed [...] Filipe tuttle MD cigarette use yes Filipe Raimrez MD smoking status Former smoker Filipe reagan MD smoking, year quit 37 Jaymie Paiz MD cigarette use yes Jaymie Paiz MD personal history of marijuana use no Jaymie Paiz MD drug use no Jaymie Paiz MD alcohol use no Jaymie Paiz MD smoking status Former smoker Jaymie pate MD personal history of marijuana use no Patricia Ventimiglia 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 drug use no Patriciajoey Narayananmig chapincito [employer]OLT 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 alcohol use no Patriciajoey Narayananmig chapincito [facility] smoking status Never smoker Patricia Loera iglmichael BOLT 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 social history reviewed E&M revi ewed - [...] Management Plan continue current therapy Patricia Crouch [facility] HRA, CV Assess/Plan, Angina (inactive) Management Plan continue current therapy Randi Oswald INSURANCE PROVIDERS Payer name Policy type / Coverage type [facility] ID [place] MEDIC[place] Medicare [id number] [facility] Medicaid 0 [id number] ADVANCE DIRECTIVES Name Date DISCUSSED - NO DECISION MADE TREATMENT PLAN Date Name Performer [id number],C, H is updated medication list for this problem includes: Pantoprazole 40 Mg Tablet,delayed Release (dr/ec) (Pantoprazole) Sucralfate 1 Gram Tablet (Sucralfate) Jaymie Paiz MD [id number],C,On vitamin D Jaymie Paiz MD [id number],C,C ontinues on insulin Jaymie Paiz MD [id number],C,L imited flexion and extension of both knees with inability to walk. Pt now wheelchair bound. May benefit from seeing orthopedist. Jaymie Paiz MD [id number],C,O n gabapentin. Likely related to Diabetes. Jaymie Paiz MD [id number],C,B ilateral amputations of toes on both feet. Denies of any pain. No ulcerations. 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 As he has no symptoms, and there were no ulcerations and being minimally ambulatory no intervention at present is indicated. Jaymie Paiz MD [id number],C,H e had cath done a few years ago that did not show any signficiant CAD. Jaymie Paiz MD [id number],C, O n supplementation Randi Oswald [id number],C, C ontinues on pantoprazole Randi Oswald [id number],C, C ontinues on insulin Randi Oswald [id number],C, H ad a cath a few years ago that did not show any signficiant CAD. Randi Oswald [id number],C, P t complains of non healing sore [...] (dr/ec) (Pantoprazole) Sucralfate 1 Gram Tablet (Sucralfate) [facility] Cardiology:on replacement therap y [facility] Cardiology: H is updated medication list for this problem includes: Insulin Glargine 100 Unit/ml (3 Ml) Insulin Pen (Insulin glargine) [facility] Cardiology:His legs are swollen Lt >RT [...] 1 tablet by mouth twice a day [place] Willa [facility] Cardiology: H is updated medication list [...]
--- OUTSIDE RECORDS SUMMARY | 2024-06-01 16:48 | XMS_ITS | Referral Summary ---
Author Organization [facility] Address [address] [place] [address] Care Team Providers Care Oncology Consultant Name Role Phone Unavailable Primary Care Provider Unavailabl e Source Comments [facility],non-owned Affiliates and Associated Physician Practices is amultiple site organization consisting of ambulatory clinics and hospital sitesin [place] and [place]. This disclosure is being madepursuant to the Care Everywhere program and may not contain all information available regarding this patient. Last updated 17.[facility] Lively Allergies Active Allergy Reactions Criticality Noted Date [...] Comments Blood Pressure 164/78 05/01/2014 2:24 AM PHARMACY TECH CUSTOMER SERVICE Pulse 90 05/01/2014 2:24 AM PHARMACY TECH CUSTOMER SERVICE Temperature 36.9 C (98.5 F) 05/01/2014 12:01 AM PHARMACY TECH CUSTOMER SERVICE Respiratory Rate - - Oxygen Saturation 100% 05/01/2014 2:24 AM PHARMACY TECH CUSTOMER SERVICE Inhaled Oxygen Concentration - - Weight 99.8 kg (220 lb) 05/01/2014 12:01 AM PHARMACY TECH CUSTOMER SERVICE Height 170.2 cm (5' 7 ) 05/01/2014 12:01 AM PHARMACY TECH CUSTOMER SERVICE Body Mass Index 34.46 05/01/2014 12:01 AM PHARMACY TECH CUSTOMER SERVICE Plan of Treatment Not on file
--- OUTSIDE RECORDS SUMMARY | 2024-06-01 16:48 | XMS_ITS | Continuity of Care Document ---
Author Organization [facility] Address [address] [place] [address] [place] [address] Phone Care Team Providers Care Jumpbasting Facing Baster Name Role Phone Som Ceballos Unavailable Unavailable Procedures Procedure Date Eye Exam, New Patient Refraction Advance Directives Directive Yes / No Effective Date File Name No Information Encounters Encounter Description Practice Location Reason(s) For Visit Diagnoses Date Provider Providers Copied on Encounter Located within [facility], [address] [place] [address] [address], [place], [place], [id number], [place] tel:[phone] [facility] No Information [address] Lashawn[address]. [address], [place], [address], [place]. tel:[phone] Family History Family Member Type Diagnosis Age At Onset No Information Payers Payer name Insurance type Covered alliance party ID Authoriza tion(s) Medicaid [facility] [id number] Social History Type Description Quantity Date Captured [...]
== END 2024-06-01 19:04 ==
PROVIDERS: Physician Assistant; Emergency Provider Emergency Medicine; PCP Internal Medicine
DX: N39.0 Urinary tract infection, site not specified (principal); Z87.891 Personal history of nicotine dependence; Z79.4 Long term (current) use of insulin; Z79.899 Other long term (current) drug therapy
CPT/HCPCS: 36415; 74176; 80053; 81001; 85025; 85610; 85730; 87086; 96365; 99284; J0696

== ENCOUNTER 2024-06-05 06:42 | Emergency (ER) | payer OTHER, MEDICAID, SELFPAY ==
[2024-06-05] VITALS (21 sets, daily range): BP systolic 126–155; BP diastolic 68–85; PULSE 64–83; RESP 12–26; TEMP 36.4; O2SAT 91–99
--- NOTE | 2024-06-05 07:20 | ED.MALEGU ---
HPI - Male Genitourinary General Chief complaint: Urogenital-Male Stated complaint: hematuria Time Seen by Provider: 06/05/24 07:18 Source: patient Mode of arrival: EMS Limitations: no limitations History of Present Illness HPI Narrative: 73 years old white male came from senior care by ambulance complaining of urinating blood this morning. His urine on arrival to the ED looks pinkish, patient denies any fever or chills or nausea or vomiting, complaining of slight dysuria. History of similar symptom in the past for unknown reason. Related Data Home Medications ?Medication ?Instructions ?Recorded ?Confirmed ?Last Taken ?Type Lactobacillus acidophilus 100 mg PO BID 05/17/24 05/17/24 Unknown History (Acidophilus capsule) acetaminophen 325 mg capsule 650 mg PO Q6H PRN pain 05/17/24 05/17/24 Unknown History atorvastatin 40 mg tablet 40 mg PO QPM 05/17/24 05/17/24 Unknown History baclofen 10 mg tablet 10 mg PO DAILY 05/17/24 05/17/24 Unknown History bismuth subsalicylate 525 mg/15 mL 1,050 mg PO BID PRN diarrhea 05/17/24 05/17/24 Unknown History oral suspension (Kaopectate Ex Str (bismuth ss)) cholecalciferol (vitamin D3) 25 25 mcg PO DAILY 05/17/24 05/17/24 Unknown History mcg (1,000 unit) capsule (Vitamin D3) cholestyramine (with sugar) 4 gram 1 ea PO DAILY 05/17/24 05/17/24 Unknown History powder for susp in a packet cilostazol 100 mg tablet 100 mg PO BID 05/17/24 05/17/24 Unknown History dapagliflozin propanediol 10 mg 10 mg PO DAILY 05/17/24 05/17/24 Unknown History tablet (Farxiga) diclofenac sodium 1 % topical gel 2 g topical BID 05/17/24 05/17/24 Unknown History gabapentin 100 mg capsule 100 mg PO TID 05/17/24 05/17/24 Unknown History insulin glargine 100 unit/mL (3 20 unit subcut QPM 05/17/24 05/17/24 Unknown History mL) subcutaneous pen (Lantus Solostar U-100 Insulin) lactase 3,000 unit tablet (Dairy 6,000 unit PO QID PRN lactose 05/17/24 05/17/24 Unknown History Relief) intolerance loperamide 2 mg capsule 2 mg PO Q6H PRN loose stool 05/17/24 05/17/24 Unknown History (Anti-Diarrheal (loperamide)) multivitamin (Daily Multi-Vitamin 1 tablet PO DAILY 05/17/24 05/17/24 Unknown History tablet) ondansetron HCl 4 mg tablet 4 mg PO Q6H PRN nausea and vomiting 05/17/24 05/17/24 Unknown History pantoprazole 40 mg tablet,delayed 40 mg PO Q12H 05/17/24 05/17/24 Unknown History release sucralfate 1 gram tablet 1 g PO BID 05/17/24 05/17/24 Unknown History tamsulosin 0.4 mg capsule 0.4 mg PO DAILY 05/17/24 05/17/24 Unknown History trazodone 50 mg tablet 25 mg PO DAILY 05/17/24 05/17/24 Unknown History venlafaxine 75 mg tablet 75 mg PO DAILY 05/17/24 05/17/24 Unknown History vitamin B12 500 mcg-folic acid 400 1 tablet PO DAILY 05/17/24 05/17/24 Unknown History mcg tablet Allergies Allergy/AdvReac Type Severity Reaction Status Date / Time glyburide Allergy Unknown Unknown Verified 05/17/24 15:16 lisinopril Allergy Unknown Unknown Verified 05/17/24 15:16 metformin Allergy Unknown Unknown Verified 05/17/24 15:16 Review of Systems Review of Systems: All systems reviewed & are unremarkable except as noted in HPI and below [facility] Social History Social History Smoking packs per day: 3 Smoking cigarettes per day: 60.0 Years smoked: 20 Smoking pack-years: 60.00 Smoking status: Former smoker Tobacco type: cigarettes Alcohol intake: former Drinks per week: 120 Substance use: never Substance use type: does not use Last use: 3-4 cases per week Do You Feel Safe in your Home?: Yes Lack of Transportation: No Lack of Food: Never True Current Housing: I Have Housing Concerned About Future Housing: No Difficulty Paying Gas/Electric Bills: No Difficulty Paying for Meds: No Currently Unemployed: No Education: High School Diploma/GED Difficulty w/ Childcare or Family Care: No Spiritual care concerns: No Exam Narrative: General appearance: Well-developed, well-nourished Skin: Normal color Head: Normocephalic, nontraumatic Eyes: Clear conjunctiva ENT: Oropharynx normal, ears normal, nose normal Neck: Supple, nontender Chest and respiratory: Airway patent, no respiratory distress, no accessory muscle use Heart: Regular rate/rhythm Abdomen: Soft, nontender, no organomegaly, quiet bowel sounds Vascular: Normal peripheral pulses, normal capillary refill. Musculoskeletal: Normal range of motion, nontender back Neurologic: Alert and oriented ?3, [employer] is normal as tested, no gross motor deficit Course Vital Signs Vital signs: Vital Signs Temperature 36.4 C 06/05/24 06:44 Pulse Rate 80 06/05/24 06:44 Respiratory Rate 17 06/05/24 06:44 Blood Pressure 150/76 H 06/05/24 06:44 Pulse Oximetry 97 06/05/24 06:44 Oxygen Delivery Room Air 06/05/24 06:44 Temperature 36.4 C 06/05/24 06:44 Pulse Rate 83 06/05/24 09:45 Respiratory Rate 26 H 06/05/24 09:45 Blood Pressure 126/68 06/05/24 07:46 Pulse Oximetry 95 06/05/24 09:31 Oxygen Delivery Room Air 06/05/24 06:44 MDM - Male Genitourinary MDM Narrative Medical decision making narrative: Patient came to the ED with hematuria Vital signs are stable Physical examination is unremarkable, patient howard urinalysis in his hand with pinkish urine Differential diagnosis urinary tract infection, hematuria Blood workup today includes CBC, PT PTT showed hemoglobin of 10.8 consistent with the past otherwise within normal limit, Urinalysis showed EVIDENCE OF INFECTION, DISCHARGED WITH URINARY TRACT INFECTION, MACROBID. PATIENT IS ALLERGIC TO QUINOLONES Differential Diagnosis Differential diagnosis: Likely other (As above) Medical Records Attestation: I reviewed the patient's medical records. Lab Data Attestation: I reviewed the patient's lab results. 06/05/24 07:29 Labs: Lab Results 06/05/24 06/05/24 Range/Units 07:29 09:09 WBC 10.0 (4.5-10.0) K/mm3 RBC 3.86 L (4.6-6.20) M/mm3 Hgb 10.8 L (14.0-18.0) g/dL Hct 33.7 L (42.0-52.0) % MCV 87.3 (80-100) fl MCH 28.0 (26-34) pg MCHC 32.0 (32-36) g/dl RDW 14.6 H (11.5-14.5) % Plt Count 239 (150-375) k/mm3 MPV 10.4 (7.4-10.4) fl Immature Gran % (Auto) 0.3 (0-0.5) % Neut % (Auto) 63.7 (45.5-73.1) % Lymph % (Auto) 23.8 (18.3-44.2) % Taney % (Auto) 8.7 H (2.6-8.5) % Eos % (Auto) 2.8 (0-4.4) % Baso % (Auto) 0.7 (0.2-1.2) % Lymph # (Auto) 2.39 (0.9-3.2) K/mm3 Taney # (Auto) 0.9 H (0.1-0.6) K/mm3 Eos # (Auto) 0.3 (0-0.3) K/mm3 Baso # (Auto) 0.1 (0.0-0.1) K/mm3 Abs Immat Gran (auto) 0.03 (0.00-0.031) K/mm3 Absolute Neuts (auto) 6.4 (1.3-6.7) K/mm3 Absolute Nucleated RBC 0.000 (0.0-0.012) K/mm3 Nucleated RBC % 0.0 (0.0-0.2) % PT 14.2 (11.1-14.7) Seconds INR 1.1 Urine Color Yellow (Yellow) Urine Appearance Turbid H (Clear) Urine pH 5.5 (5.0-9.0) Ur Specific [place] 1.018 (1.001-1.035) Urine Protein 1+ H (Negative) mg/dL Urine Glucose (UA) 3+ H (Negative) mg/dL Urine Ketones Negative (Negative) mg/dL Ur Blood (Man) 3+ H (Negative) Urine Nitrate Negative (Negative) Urine Bilirubin Negative (Negative) Urine Urobilinogen 0.2 (<2.0) mg/dL Leukocyte Esterase Rfl 3+ H (Negative) ANNMARIE/UL Urine RBC >100 H (0-2) /hpf Urine WBC >100 H (0-3) /hpf Ur Squamous Epith Cells None seen (Few) /hpf Urine Bacteria None seen /hpf Urine Casts 0-2 Critical Care Time Critical Care Time Critical Care Time: No Discharge Plan Discharge Clinical Impression: Urinary tract infection Patient Disposition: CT Residential/Asst Living Condition: Stable Instructions: Antibiotic Form, Urinary Tract Infection in Men (ED) Additional Instructions: RETURN IF SYMPTOMS ARE WORSENING , CALL YOUR FAMILY PHYSICIAN FOR APPOINTMENT, TAKE TYLENOL NEEDED FOR ACHES AND PAIN, CONTINUE HOME MEDICATIONS. Patient Language: Dominican Prescriptions: New nitrofurantoin monohyd/m-cryst [Macrobid] 100 mg capsule 100 mg PO Q12H 7 Days Qty: 14 0RF Rx Instructions: must administer with a meal/food No Action atorvastatin 40 mg tablet 40 mg PO QPM acetaminophen 325 mg capsule 650 mg PO Q6H PRN (Reason: pain) Patient Comments: For unspecified knee pain Acidophilus Capsule 100 mg PO BID baclofen 10 mg tablet 10 mg PO DAILY cholestyramine (with sugar) 4 gram powder in packet 1 ea PO DAILY cilostazol 100 mg tablet 100 mg PO BID dapagliflozin propanediol [Farxiga] 10 mg tablet 10 mg PO DAILY gabapentin 100 mg capsule 100 mg PO TID loperamide [Anti-Diarrheal (loperamide)] 2 mg capsule 2 mg PO Q6H PRN (Reason: loose stool) insulin glargine [Lantus Solostar U-100 Insulin] 100 unit/mL (3 mL) insulin pen 20 unit subcut QPM Kaopectate Ex Str (bismuth ss) 525 mg/15 mL suspension 1,050 mg PO BID PRN (Reason: diarrhea) lactase [Dairy Relief] 3,000 unit tablet 6,000 unit PO QID PRN (Reason: lactose intolerance) Rx Instructions: administer with meals and/or snacks multivitamin [Daily Multi-Vitamin] Tablet 1 tablet PO DAILY ondansetron HCl 4 mg tablet 4 mg PO Q6H PRN (Reason: nausea and vomiting) pantoprazole 40 mg tablet,delayed release (DR/EC) 40 mg PO Q12H sucralfate 1 gram tablet 1 g PO BID tamsulosin 0.4 mg capsule 0.4 mg PO DAILY trazodone 50 mg tablet 25 mg PO DAILY venlafaxine 75 mg tablet 75 mg PO DAILY vitamin P92-ivccl acid 500-400 mcg tablet 1 tablet PO DAILY Rx Instructions: administer with a meal cholecalciferol (vitamin D3) [Vitamin D3] 25 mcg (1,000 unit) capsule 25 mcg PO DAILY diclofenac sodium 1 % gel 2 g topical BID Rx Instructions: apply to single elbow, wrist or hand; for hand includes palm/fingers/back of hand carvedilol [Coreg] 12.5 mg Tablet 12.5 mg PO Q12HR Qty: 30 0RF amlodipine [Norvasc] 5 mg tablet 5 mg PO DAILY Qty: 30 0RF cephalexin 500 mg capsule 500 mg PO Q12H 7 Days Qty: 14 0RF Follow-up/Referrals: Romie,MD Ian [Primary Care Provider] -
[2024-06-05 07:35] LABS: Basophils Absolute Auto 0.1 K/mm3 (0.0-0.1); Basophils Percent Auto 0.7 % (0.2-1.2); Eosinophils Absolute Auto 0.3 K/mm3 (0-0.3); Eosinophils Percent Auto 2.8 % (0-4.4); Hematocrit 33.7 % (42.0-52.0); Hemoglobin 10.8 g/dL (14.0-18.0); Immature Granulocyte Absolute 0.03 K/mm3 (0.00-0.031); Immature Granulocyte Percent A 0.3 % (0-0.5); Lymphocytes Absolute Auto 2.39 K/mm3 (0.9-3.2); Lymphocytes Percent Auto 23.8 % (18.3-44.2); Mean Corpuscular Volume 87.3 fl (80-100); Mean Platelet Volume 10.4 fl (7.4-10.4); Monocytes Absolute Auto 0.9 K/mm3 (0.1-0.6); Monocytes Percent Auto 8.7 % (2.6-8.5); Neutrophils Absolute Auto 6.4 K/mm3 (1.3-6.7); Neutrophils Percent Auto 63.7 % (45.5-73.1); Platelet Count Result 239 k/mm3 (150-375); Red Blood Count 3.86 M/mm3 (4.6-6.20); Red Cell Distribution Width 14.6 % (11.5-14.5)
[2024-06-05 07:51] LABS: INR 1.1; Prothrombin Time 14.2 Seconds (11.1-14.7)
[2024-06-05 09:25] LABS: Add Urine Microscopic? YES; Appearance Urine Turbid (Clear); Bacteria Urine None Seen /hpf; Bilirubin Urine Negative (Negative); Blood Urine 3+ (Negative); Color Urine Yellow (Yellow); Glucose Urine UA 3+ mg/dL (Negative); Ketones Urine Negative (Negative); Leukocyte Esterase Ur 3+ LEU/UL (Negative); Nitrate Urine Negative (Negative); Non Pathogenic Casts 0-2; Protein Urine 1+ mg/dL (Negative); RBC Urine >100 /hpf (0-2); Specific Grav Ur 1.018 (1.001-1.035); Squamous Epithelial Cell Urine None Seen /hpf (Few); Urobilinogen Urine 0.2 mg/dL (<2.0); WBC Urine >100 /hpf (0-3); pH Urine 5.5 (5.0-9.0)
--- NOTE | 2024-06-05 13:57 | PC.NURSE ---
To [facility] via [employer] [facility].
== END 2024-06-05 13:57 ==
PROVIDERS: Student in an Organized Health Care Education/Training Program; Emergency Provider Emergency Medicine; PCP Internal Medicine
DX: N39.0 Urinary tract infection, site not specified (principal); Z87.891 Personal history of nicotine dependence; Z79.4 Long term (current) use of insulin; Z79.899 Other long term (current) drug therapy
CPT/HCPCS: 36415; 81001; 85025; 85610; 87086; 96365; 99284; J0696

== ENCOUNTER 2025-03-21 10:30 | Emergency (ER) | payer OTHER, MEDICAID, SELFPAY ==
[2025-03-21 10:31] VITALS: BP 117/71; PULSE 77; RESP 18; TEMP 36.6; O2SAT 99
--- NOTE | 2025-03-21 10:40 | PC.NURSE ---
Pt provided with urinal for urine sample
--- NOTE | 2025-03-21 10:56 | PC.NURSE ---
Pt attempted to give urine sample. Unable to provide at this time. States will try again and alert staff with call light.
[2025-03-21 10:58] LABS: Hematocrit 35.7 % (42.0-52.0); Hemoglobin 11.3 g/dL (14.0-18.0); Immature Granulocyte Percent A 0.6 % (0-0.5); Lymphocytes Absolute Auto 2.35 K/mm3 (0.9-3.2); Mean Corpuscular HGB Conc 31.7 g/dl (32-36); Mean Corpuscular Hemoglobin 27.4 pg (26-34); Mean Corpuscular Volume 86.4 fl (80-100); Nucleated Red Blood Cells Absolute Auto 0.000 K/mm3 (0.0-0.012); Nucleated Red Blood Cells Perc 0.0 % (0.0-0.2); Platelet Count Result 221 k/mm3 (150-375); Red Blood Count 4.13 M/mm3 (4.6-6.20); White Blood Count 10.8 K/mm3 (4.5-10.0)
--- OUTSIDE RECORDS SUMMARY | 2025-03-21 11:00 | XMS_ITS | Data Portability ---
Author Organization [facility], [facility] Address [address] [place] [address] Care Team Providers Care Lidar Scientist Name Role Phone [facility] OTHER Assessment Encounter Date Assessment Date Assessment LastModified by Organization Details LastModified Time 06/08/2022 06/08/2022 Medically stable for discharge to community tomorrow to his home. pt has follow up apt with pcp. Family provides transportation to/from doctors appointments. 30 day supply of medications not needed. No DME needed. Time spent on discharge <30 minutes. [email or web address] Not available 06/08/2022 21:10:25 Plan of Treatment [...] and Address Organization Details Recorded Time Osteomyelitis 95870078 Active 2022 AGATHA RIZVI APRN [address], [place], [address], [facility] 3 17:00:27 Type 2 diabetes mellitus 37905388 Active 2022 AGATHA RIZVI APRN [address], [place], [address], [facility] 3 17:00:33 Clostridium difficile colitis 933512098 Active 2022 AGATHA RIZVI APRN [address], [place], [address], [facility] 3 17:00:39 Hypertensive disorder 97533715 Active 2022 AGATHA RIZVI APRN [address], [place], [address], [facility] 3 17:00:45 Neuropathy 403846981 Active 2022 AGATHA RIZVI APRN [address], [place], [address], [facility] 3 17:00:54 Problem Notes None recorded. [...] mass index (BMI) Body weight Oxygen saturation Systolic And Diastolic Provider Name and Address Organization Details Last Updated DateTime 3 88 /min 18 /min 97.6 [degF] 170.18 cm 24.6 kg/m2 37957 g 98 % 111/60 mm[Hg] AGATHA RIZVI APRN [address], [place], [phone], [facility] 3 16:56:30 Date Recorded Body height Heart rate Respiratory rate Body temperature Body mass index (BMI) Body weight Oxygen saturation Systolic And Diastolic Provider Name and Address Organization Details Last Updated DateTime 3 170.18 cm 86 /min 18 /min 97.8 [degF] 24.6 kg/m2 22049 g 96 % 132/76 mm[Hg] AGATHA RIZVI APRN [address], [place], [address], [facility] 3 17:30:11 Date Recorded Body height Heart rate Respiratory rate Body temperature Body mass index (BMI) Body weight Oxygen saturation Systolic And Diastolic Provider Name and Address Organization Details Last Updated DateTime 3 170.18 cm 88 /min 18 /min 97.8 [degF] 24.6 kg/m2 41533 g 96 % 127/72 mm[Hg] AGATHA RIZVI APRN [address], [place], [address], [facility] 3 16:17:39 Date Recorded Body height Heart rate Respiratory rate Body temperature Body mass index (BMI) Body weight Oxygen saturation Systolic And Diastolic Provider Name and Address Organization Details Last Updated DateTime 3 170.18 cm 80 /min 18 /min 97.8 [degF] 24.6 kg/m2 23226 g 96 % 122/70 mm[Hg] AGATHA RIZVI APRN [address], [place], [address], [facility] 3 21:00:56 Social History None recorded. Functional Status None recorded. Mental Status None recorded. Family History Nothing Reported. Medical History No medical history recorded. Past Encounters Encounter ID Performer Location Encounter Start Date Encounter Closed Date Diagnosis/Indication Diagnosis SNOMED-CT Code Diagnosis ICD10 Code Diagnosis IMO Codes Diagnosis Note [id number] AGATHA RIZVI APRN [employer] (DO [place] [address]) [address] [place] [phone] 05/31/2022 15:03:03 06/01/2022 12:26:37 Type 2 diabetes mellitus 60248085 E11.621 Z79.4 lantus 10 units dailyaccu checks qid Osteomyelitis 76816933 M 86.[address] [facility] Neuropathy 322860872 G62 .9 gabapentin 300 mg tid Hypertensive disorder 38 758860 I10 stable Clostridiu m difficile colitis 070111903 A04.72 continue : augmentin, doxycyclin e, and vancomycin til 06/26/22 [id number] AGATHA RIZVI APRN [facility] (DO [place] [address]) [address] [facility] [place] [address] 06/04/2022 16:56:43 06/05/2022 12:22:32 Hypertensive disorder 91993173 I10 stable Clostridiu m difficile colitis 516011990 A04.72 continue : augmentin, doxycyclin e, and vancomycin til 06/26/22 Neuropathy 350133024 G62 .9 gabapentin 300 mg tid Osteomyelitis 01449605 M 86.[address] ojeda wound care [id number] AGATHA RIZVI APRN [employer] (DO [place] [address]) [address] [place] [phone] 06/06/2022 14:38:01 06/06/2022 17:51:43 Type 2 diabetes mellitus 61391123 E11.621 Z79.4 lantus 10 units dailyaccu checks qid Osteomyelitis 05848308 M 86.[address] ojeda wound care Neuropathy 247835078 G62 .9 gabapentin 300 mg tid Hypertensive disorder 38 538189 I10 stable [id number] AGATHA RIZVI APRN [employer] [facility] (DO NOT USE[place] [address]) [address] [place] [phone] 06/08/2022 15:42:58 06/11/2022 12:21:39 Type 2 diabetes mellitus 36310585 E11.621 Z79.4 lantus 10 units dailyaccu checks qid.-30 day supply given follow up with pcp Neuropathy 079804817 G62 .9 gabapentin 300 mg tid-30 day supply given follow up with pcp Clostridiu m difficile colitis 269451410 A04.72 continue : augmentin, doxycyclin e, and vancomycin til 06/26/22-30 day supply given follow up with pcp Hypertensive disorder 38 942381 I10 [facility] Concerns Section Related Observation LastModified by Organization Detai ls LastModified Time None Recorded Concern Status LastModified by Organization Details LastModified Time None Recorded Advance Directives Directive None Recorded Payers Insurance Date Sequence Insurance Name Policy Number Policy Maldonado Covered Member ID Maldonado Member ID Guarantor Name 05/31/2022 1 *SELF PAY* Ed adriana Moe 05/31/2022 1 [place] Maurice Moe [id number] Maurice Moe Notes Date Note Type Note Provider Name and Address Organization Details Recorded Time 05/31/2022 text/html Today's visit is medically necessary for hospital transition of care to a halfway setting to review current acute and chronic [...] APRN [address], [place], [phone], [employer] [facility] 05/31/2022 17:03:25 06/04/2022 text/html Today's visit is medically necessary for hospital transition of care to a halfway setting to review current acute and chronic [...] APRN [address], [place], [phone], [employer] [facility] 06/04/2022 17:33:30 06/06/2022 text/html Today's visit is medically necessary for hospital transition of care to a halfway setting to review current acute and chronic [...] APRN [address], [place], [phone], [facility] 06/06/2022 16:18:43 06/08/2022 text/html Today's visit is medically necessary for patient discharge. Mr. Moe comes to [facility] because he required assistance from nursing while remaining in isolation for c diff. Patient was a high risk for falls and requires close monitoring of vital signs. Patient received halfway services in order to maximize rehab potential, function, and safety. Pt feels confident to go home and continue regaining his strength and independence. Mr. Moe came to [facility] after being hospitalized for osteomyelitis and then being after treated with multiple antibiotics tested postive for cdiff and complete treated here at [facility]. pmh: essential hypertension, type 2dm, hyperlipidemia, and diverticulitis. Medically stable for discharge to community tomorrow to his home. pt has follow up apt with pcp. Family provides transportation to/from doctors appointments. 30 day supply of medications not needed. No DME needed. Time spent on discharge <30 minutes. AGATHA RIZVI APRN [address], [place], [address], [facility] 06/08/2022 21:12:47
--- OUTSIDE RECORDS SUMMARY | 2025-03-21 11:00 | XMS_ITS | Data Portability ---
Author Organization [facility] [place], Main Office Address [address] [place] [address] Care Team Providers Care Marriage And Family Teacher Name Role Phone GALINA TATE Primary Care Provider Assessment Encounter Date Assessment Date Assessment LastModified by Organization Details LastModified Time 01/29/2023 01/29/2023 This note is dictated and transcribed by [employer]. Spinning Frame Fixer variances may occur. Despite proofreading, typographical errors [...] Modified By Organization Details Last Modified Time 01/29/2023 [id number] secondary to bilateral foot amputations patient is [...] grade No observ ation record ed. [email or web address] [facility] [address] [place], [address], 09/06/2022 17:58:33 Result Notes None recorded. Problems Name Problem SNOMED Code Status Onset Date Resolution Date Notes Provider Name and Address Organization Details Recorded Time Benign prostatic hyperplasi a 467237441 Active 2022 Marcio Shukla MD [address], [address], [place], [address] , [facility] 3 10:26:38 Kidney stone 30926635 Active 2022 Marcio Shukla MD [address], [address], [place], [address] , [facility] 3 10:26:42 Vitamin B deficiency 49905523 Active 2022 Pretty dobson[place] [facility] 3 14:32:15 Contractur e of left knee joint 2509252325609 00 Active 2022 Prtety Constantino null, [place] [facility] 3 14:32:26 Altered mental status 704322152 Active 2022 Pretty Constantino null, [place] [facility] 3 14:32:34 Moderate cognitive impairment 445845777 Active 2022 Pretty Constantino null, [place] [facility] 3 14:32:49 Contractur e of right knee joint 6487406918165 05 Active 2022 Pretty Constantino null, [place] [facility] 3 14:33:00 Diverticul ar disease 052783175 Active 2022 Pretty Constantino null, [place] [facility] 3 14:33:08 Essential hypertensi on 71382312 Active 2022 Pretty Constantino null, [place] [facility] 3 14:33:17 Diabetic peripheral neuropathy 369383893 Active 2022 Marcio Avalos DPM [address], [place], [address] , [facility] 3 14:35:52 Hyperlipid emia 54386511 Active 2022 Pretty Constantino null, [place] [facility] 3 14:36:18 Pain of multiple joints 87814547 Active 2022 Pretty Constantino null, [place] [facility] 14:36:27 Sepsis 54472244 Active 2022 Pretty Constantino null, [place] [facility] 14:36:37 Abnormal gait 87041230 Active 2022 Pretty Constantino null, [place] [facility] 14:36:45 Clostridiu m difficile colitis 883809712 Active 2022 Pretty Constantino null, [place] [facility] 14:36:57 Neuropathy 227978447 Active 2022 Pretty Constantino null, [place] [facility] 14:37:07 Constipati on 86400815 Active 2022 Pretty Constantino null, [place] [facility] 14:37:16 Muscle weakness 13561284 Active 2022 Pretty Constantino null, [place] [facility] 14:37:25 Diarrhea 42946140 Active 2022 Pretty Constantino null, [place] [facility] 14:37:33 Chronic back pain 438858623 Active 2022 Pretty Constantino null, [place] [facility] 14:38:27 Dementia 80685781 Active 2022 Pretty Constantino null, [place] [facility] 14:38:44 Flexion contractur e of the knee 325067103 Active 2022 Marcio Avalos DPM [address], [place], [address] , [facility] 3 12:02:35 History of amputation of foot 602815186 Active 2022 Marcio Avalos DPM [address], [place], [address] , [facility] 3 12:02:44 Problem Notes None recorded. Procedures Surgical History Date Name Laterality Status Provider Name and Address Organization Details Recorded Time Anderson Catheter Removal completed Poonam Cervantes MA [facility] 08/28/2022 10:06:37 Imaging Results None recorded. Procedure Notes None recorded. Medical Equipment None Reported. Allergies Allergen ID Allergen Name Allergen Category Reaction Reaction Severity Criticality Documentation Date Start Date Code Code System Note Provider Name and Address Organization Details Recorded Time 12718 metformin medicatio n Not available Not available Not available 01/29/2023 6809 RxNorm Pretty Dougie [facility] 14:26:56 81048 glyburide medicatio n Not available Not available Not available 01/29/2023 4815 RxNorm Pretty Dougie [facility] 14:27:13 40947 lisinopri l medicatio n Not available Not available Not available 01/29/2023 25031 RxNorm Pretty Constantino [facility] 14:27:29 Medications Name Sig Start Date Stop [...] Updated DateTime 01/29/2023 165.1 cm 32.4 kg/m2 95630.51 g Pretty Constantino [facility] 01/29/2023 14:43:12 Date Recorded Heart rate Respiratory rate Oxygen saturation Systolic And Diastolic Provider Name and Address Organization Details Last Updated DateTime 01/29/2023 94 /min 14 /min 97 % 169/99 mm[Hg] Zoey Ortez [facility] 14:31:06 Social History Question Answer Notes LastModified by Organizat ion Details LastModified Time Tobacco Smoking Status Former Smoker ARIC Bonilla - [facility] 01/29/2023 14:43:37 How Many Years Have You Smoked Tobacco? 35 Information not available 01/29/2023 Sex: Unknown Functional Status Question Answer Note LastModified by Organization D etails LastModified Time What is your level of alcohol consumption? Heavy Information not available 01/29/2023 Mental Status None recorded. Family History Nothing Reported. Medical History Condition Response NEUROPATHY Y MENTAL DISORDER/ILLNESS Y BOWEL PROBLEMS Y HYPERTENSION Y HIGH CHOLESTEROL / HYPERLIPIDEMIA Y Past Encounters Encounter ID Performer Location Encounter Start Date Encounter Closed Date Diagnosis/Indication Diagnosis SNOMED-CT Code Diagnosis ICD10 Code Diagnosis IMO Codes Diagnosis Note [id number] Marcio Shukla MD [facility] Urology [address] [facility] [address] [place] [address] 08/28/2022 09:32:55 08/28/2022 10:35:04 [id number] Marcio Avalos DPM [facility] Podiat[place] [address] [facility] [address] [place] [address] 01/29/2023 14:23:09 01/30/2023 13:52:10 Diabetic peripheral neuropathy 293389948 E11.40 Patient educated on neuropathy , diabetes, diabetic diet, and daily foot exams. Patient is to check feet daily for new wounds, blisters, redness to prevent infection and ulceration s to the feet. Patient will return to clinic in 3 months for diabetic foot workup.Rx diabetic shoes and inserts History of amputation of foot 902608266 Z89.439 bilateral feet Flexion co ntracture of the knee 396274179 M24.569 recommend follow-up with orthopedic Health Concerns Section Related Observation LastModified by Organization Detai ls LastModified Time None Recorded Concern Status LastModified by Organization Details LastModified Time None Recorded Advance Directives Directive None Recorded Payers Insurance Date Sequence Insurance Name Policy Number Policy Maldonado Covered Member ID Maldonado Member ID Guarantor Name 05/22/2024 1 [place] [employer] Maurice Moe [id number] Maurice Moe 07/18/2023 1 [place] Maurice Moe [id number] Maurice Moe 05/22/2024 [place] [facility] Maurice Moe [id number] Maurice Moe 08/14/2022 1 [place] Maurice Moe [id number] Maurice Moe Notes Date Note Type Note [...] [place]. Patient now is living in a nursing home facility with his . Patient denies any other complaints. Marcio Avalos DPM [address] [facility] [facility] [address], [place], [address], [place] [facility] 01/30/2023 12:02:57
[2025-03-21 11:17] LABS: Alanine Aminotransferase 16 U/L (6-50); Albumin Level 3.8 g/dL (3.5-5.1); Alkaline Phosphatase 93 U/L (38-126); Anion Gap 6 mmol/L (4-12); Aspartate Amino Transferase 24 U/L (17-59); Bilirubin,Total 0.4 mg/dL (0.2-1.3); Blood Urea Nitrogen 45 mg/dL (9-20); Calcium 8.9 mg/dL (8.4-10.2); Carbon Dioxide 31 mmol/L (22-30); Chloride 99 mmol/L (98-107); Estimated CRCL calculation 42 ml/min; Estimated Glomerular Filt Rate 51; Glucose 333 mg/dL (65-110); Potassium 4.3 mmol/L (3.4-5.0); Sodium 136 mmol/L (137-145); Total Protein 7.0 g/dL (6.3-8.2)
[2025-03-21 11:39] LABS: Add Urine Microscopic? YES; Appearance Urine Turbid (Clear); Glucose Urine UA 3+ mg/dL (Negative); Leukocyte Esterase Ur 2+ LEU/UL (Negative); Nitrate Urine Negative (Negative); Non Pathogenic Casts 0-2; Specific Grav Ur 1.028 (1.001-1.035)
[2025-03-21 12:34] VITALS: BP 135/60; PULSE 75; RESP 16; O2SAT 100
[2025-03-21] MEDS: cefTRIAXone 1 GM in SODIUM CHLORIDE 0.9% IV 50 ML 100 ML IVPB (12:55)
--- NOTE | 2025-03-21 13:01 | ED.GENADULT ---
HPI - General Adult General Chief complaint: Urogenital-Male Stated complaint: blood in urine Time Seen by Provider: 03/21/25 10:33 Source: patient Mode of arrival: EMS Limitations: no limitations History of Present Illness HPI narrative: 74-year-old with a history of hypertension, diverticulosis, recurrent hematuria , diabetes, diabetic neuropathy brought in from assisted with the complaints of blood in the urine since this morning. He denies any fever or chills. No history of nausea or vomiting. He is not on any anticoagulant. Relieving factors: none Associated symptoms: denies other symptoms Related Data Home Medications ?Medication ?Instructions ?Recorded ?Confirmed ?Last Taken ?Type Lactobacillus acidophilus 100 mg PO BID 05/17/24 05/17/24 Unknown History (Acidophilus capsule) acetaminophen 325 mg capsule 650 mg PO Q6H PRN pain 05/17/24 05/17/24 Unknown History atorvastatin 40 mg tablet 40 mg PO QPM 05/17/24 05/17/24 Unknown History baclofen 10 mg tablet 10 mg PO DAILY 05/17/24 05/17/24 Unknown History bismuth subsalicylate 525 mg/15 mL 1,050 mg PO BID PRN diarrhea 05/17/24 05/17/24 Unknown History oral suspension (Kaopectate Ex Str (bismuth ss)) cholecalciferol (vitamin D3) 25 25 mcg PO DAILY 05/17/24 05/17/24 Unknown History mcg (1,000 unit) capsule (Vitamin D3) cholestyramine (with sugar) 4 gram 1 ea PO DAILY 05/17/24 05/17/24 Unknown History powder for susp in a packet cilostazol 100 mg tablet 100 mg PO BID 05/17/24 05/17/24 Unknown History dapagliflozin propanediol 10 mg 10 mg PO DAILY 05/17/24 05/17/24 Unknown History tablet (Farxiga) diclofenac sodium 1 % topical gel 2 g topical BID 05/17/24 05/17/24 Unknown History gabapentin 100 mg capsule 100 mg PO TID 05/17/24 05/17/24 Unknown History insulin glargine 100 unit/mL (3 20 unit subcut QPM 05/17/24 05/17/24 Unknown History mL) subcutaneous pen (Lantus Solostar U-100 Insulin) lactase 3,000 unit tablet (Dairy 6,000 unit PO QID PRN lactose 05/17/24 05/17/24 Unknown History Relief) intolerance loperamide 2 mg capsule 2 mg PO Q6H PRN loose stool 05/17/24 05/17/24 Unknown History (Anti-Diarrheal (loperamide)) multivitamin (Daily Multi-Vitamin 1 tablet PO DAILY 05/17/24 05/17/24 Unknown History tablet) ondansetron HCl 4 mg tablet 4 mg PO Q6H PRN nausea and vomiting 05/17/24 05/17/24 Unknown History pantoprazole 40 mg tablet,delayed 40 mg PO Q12H 05/17/24 05/17/24 Unknown History release sucralfate 1 gram tablet 1 g PO BID 05/17/24 05/17/24 Unknown History tamsulosin 0.4 mg capsule 0.4 mg PO DAILY 05/17/24 05/17/24 Unknown History trazodone 50 mg tablet 25 mg PO DAILY 05/17/24 05/17/24 Unknown History venlafaxine 75 mg tablet 75 mg PO DAILY 05/17/24 05/17/24 Unknown History vitamin B12 500 mcg-folic acid 400 1 tablet PO DAILY 05/17/24 05/17/24 Unknown History mcg tablet Allergies Allergy/AdvReac Type Severity Reaction Status Date / Time glyburide Allergy Unknown Unknown Verified 03/21/25 10:38 lisinopril Allergy Unknown Unknown Verified 03/21/25 10:38 metformin Allergy Unknown Unknown Verified 03/21/25 10:38 Review of Systems Review of Systems: All systems reviewed & are unremarkable except as noted in HPI and below Constitutional: Constitutional: Reports no additional constitutional complaints Eyes: Eyes: Reports no additional eye complaints ENT: Reports system reviewed and no additional complaints, except as documented Cardiovascular: Cardiovascular: Reports no additional cardiovascular complaints Respiratory: Respiratory: Reports no additional respiratory complaints Gastrointestinal: Gastrointestinal: Reports no additional gastrointestinal complaints Genitourinary: Genitourinary: Reports as per HPI Musculoskeletal: Musculoskeletal: Reports no additional musculoskeletal complaints Integumentary/Breasts: Skin/Breast: Reports system reviewed and no additional complaints, except as docu PMFSH Social History Social History Smoking packs per day: 3 Smoking cigarettes per day: 60.0 Years smoked: 20 Smoking pack-years: 60.00 Smoking status: Former smoker Tobacco type: cigarettes Alcohol intake: former Drinks per week: 120 Substance use: never Substance use type: does not use Last use: 3-4 cases per week Lack of Transportation: No Lack of Food: Never True Current Housing: I Have Housing Concerned About Future Housing: No Difficulty Paying Gas/Electric Bills: No Difficulty Paying for Meds: No Currently Unemployed: No Education: High School Diploma/GED Difficulty w/ Childcare or Family Care: No Spiritual care concerns: No Exam Narrative: GENERAL: Well-appearing, well-nourished, and in no acute distress. HEAD: Normocephalic, atraumatic. EYES: PERRLA and EOMI. ENT: Nares clear, no rhinorrhea or epistaxis. Mucous membranes moist. NECK: Supple. CHEST: Clear to auscultation. No respiratory distress. HEART: Regular rate and rhythm. No murmur heard. Normal peripheral pulses. ABDOMEN: Soft, nontender, nondistended, normal active bowel sounds. EXTREMITIES: Normal range of motion. No edema. SKIN: Warm, dry, no rash. NEURO: No focal deficits. Alert and oriented x3. PSYCH: Normal mood and affect. Course Course Emergency Course: pt comfortably resting , his urine did not appear as gross hematuria , will give IV Rocephin .I did review all the lab work with pt . he feels comfortable going [facility] to [place] Vital Signs Vital signs: Vital Signs Temperature 36.6 C 03/21/25 10:31 Pulse Rate 77 03/21/25 10:31 Respiratory Rate 18 03/21/25 10:31 Blood Pressure 117/71 03/21/25 10:31 Pulse Oximetry 99 03/21/25 10:31 Oxygen Delivery Room Air 03/21/25 10:31 Temperature 36.6 C 03/21/25 10:31 Pulse Rate 75 03/21/25 12:34 Respiratory Rate 16 03/21/25 12:34 Blood Pressure 135/60 03/21/25 12:34 Pulse Oximetry 100 03/21/25 12:34 Oxygen Delivery Room Air 03/21/25 10:31 MDM Differential Diagnosis Differential Diagnosis: UTI , Kidney stone , bladder ca Lab Data 03/21/25 10:54 03/21/25 10:54 Labs: Lab Results 03/21/25 03/21/25 Range/Units 10:54 11:15 WBC 10.8 H (4.5-10.0) K/mm3 RBC 4.13 L (4.6-6.20) M/mm3 Hgb 11.3 L (14.0-18.0) g/dL Hct 35.7 L (42.0-52.0) % MCV 86.4 (80-100) fl MCH 27.4 (26-34) pg MCHC 31.7 L (32-36) g/dl RDW 15.3 H (11.5-14.5) % Plt Count 221 (150-375) k/mm3 MPV 10.0 (7.4-10.4) fl Immature Gran % (Auto) 0.6 H (0-0.5) % Neut % (Auto) 64.1 (45.5-73.1) % Lymph % (Auto) 21.8 (18.3-44.2) % [place] % (Auto) 10.7 H (2.6-8.5) % Eos % (Auto) 2.3 (0-4.4) % Baso % (Auto) 0.5 (0.2-1.2) % Lymph # (Auto) 2.35 (0.9-3.2) K/mm3 [place] # (Auto) 1.2 H (0.1-0.6) K/mm3 Eos # (Auto) 0.3 (0-0.3) K/mm3 Baso # (Auto) 0.1 (0.0-0.1) K/mm3 Abs Immat Gran (auto) 0.06 H (0.00-0.031) K/mm3 Absolute Neuts (auto) 6.9 H (1.3-6.7) K/mm3 Absolute Nucleated RBC 0.000 (0.0-0.012) K/mm3 Nucleated RBC % 0.0 (0.0-0.2) % Sodium 136 L (137-145) mmol/L Potassium 4.3 (3.4-5.0) mmol/L Chloride 99 (98-107) mmol/L Carbon Dioxide 31 H (22-30) mmol/L Anion Gap 6 (4-12) mmol/L BUN 45 H D (9-20) mg/dL Creatinine 1.36 H (0.7-1.3) mg/dL Estim Creat Clear Calc 42 ml/min Estimated GFR 51 L (59 - ) Glucose 333 H (65-110) mg/dL Calcium 8.9 (8.4-10.2) mg/dL Total Bilirubin 0.4 (0.2-1.3) mg/dL AST 24 (17-59) U/L ALT 16 (6-50) U/L Alkaline Phosphatase 93 (38-126) U/L Total Protein 7.0 (6.3-8.2) g/dL Albumin 3.8 (3.5-5.1) g/dL Urine Color Yellow (Yellow) Urine Appearance Turbid H (Clear) Urine pH 5.5 (5.0-9.0) Ur Specific [place] 1.028 (1.001-1.035) Urine Protein 2+ H (Negative) mg/dL Urine Glucose (UA) 3+ H (Negative) mg/dL Urine Ketones Negative (Negative) mg/dL Ur Blood (Man) 3+ H (Negative) Urine Nitrate Negative (Negative) Urine Bilirubin Negative (Negative) Urine Urobilinogen 0.2 (<2.0) mg/dL Leukocyte Esterase Rfl 2+ H (Negative) ANNMARIE/UL Urine RBC >100 H (0-2) /hpf Urine WBC >100 H (0-3) /hpf Ur Squamous Epith Cells None seen (Few) /hpf Urine Bacteria None seen /hpf Urine Casts 0-2 Discharge Plan Discharge Clinical Impression: Recurrent hematuria Patient Disposition: Home Condition: Stable Instructions: Hematuria (ED) Additional Instructions: Continue home medications, follow with your doctor as needed. Patient Language: Faroese Prescriptions: New cefadroxil 500 mg capsule 500 mg PO Q12H Qty: 10 0RF No Action atorvastatin 40 mg tablet 40 mg PO QPM acetaminophen 325 mg capsule 650 mg PO Q6H PRN (Reason: pain) Patient Comments: For unspecified knee pain Acidophilus Capsule 100 mg PO BID baclofen 10 mg tablet 10 mg PO DAILY cholestyramine (with sugar) 4 gram powder in packet 1 ea PO DAILY cilostazol 100 mg tablet 100 mg PO BID dapagliflozin propanediol [Farxiga] 10 mg tablet 10 mg PO DAILY gabapentin 100 mg capsule 100 mg PO TID loperamide [Anti-Diarrheal (loperamide)] 2 mg capsule 2 mg PO Q6H PRN (Reason: loose stool) insulin glargine [Lantus Solostar U-100 Insulin] 100 unit/mL (3 mL) insulin pen 20 unit subcut QPM Kaopectate Ex Str (bismuth ss) 525 mg/15 mL suspension 1,050 mg PO BID PRN (Reason: diarrhea) lactase [Dairy Relief] 3,000 unit tablet 6,000 unit PO QID PRN (Reason: lactose intolerance) Rx Instructions: administer with meals and/or snacks multivitamin [Daily Multi-Vitamin] Tablet 1 tablet PO DAILY ondansetron HCl 4 mg tablet 4 mg PO Q6H PRN (Reason: nausea and vomiting) pantoprazole 40 mg tablet,delayed release (DR/EC) 40 mg PO Q12H sucralfate 1 gram tablet 1 g PO BID tamsulosin 0.4 mg capsule 0.4 mg PO DAILY trazodone 50 mg tablet 25 mg PO DAILY venlafaxine 75 mg tablet 75 mg PO DAILY vitamin C36-ptjpe acid 500-400 mcg tablet 1 tablet PO DAILY Rx Instructions: administer with a meal cholecalciferol (vitamin D3) [Vitamin D3] 25 mcg (1,000 unit) capsule 25 mcg PO DAILY diclofenac sodium 1 % gel 2 g topical BID Rx Instructions: apply to single elbow, wrist or hand; for hand includes palm/fingers/back of hand carvedilol [Coreg] 12.5 mg Tablet 12.5 mg PO Q12HR Qty: 30 0RF amlodipine [Norvasc] 5 mg tablet 5 mg PO DAILY Qty: 30 0RF cephalexin 500 mg capsule 500 mg PO Q12H 7 Days Qty: 14 0RF nitrofurantoin monohyd/m-cryst [Macrobid] 100 mg capsule 100 mg PO Q12H 7 Days Qty: 14 0RF Rx Instructions: must administer with a meal/food Follow-up/Referrals: Romie,MD Ian [Primary Care Provider, Unknown] Time of Disposition: 13:02
[2025-03-21 13:22] VITALS: BP 121/65; PULSE 73; RESP 16; O2SAT 98
== END 2025-03-21 13:45 ==
PROVIDERS: Emergency Provider Family Medicine; PCP Internal Medicine
DX: R31.9 Hematuria, unspecified (principal); I10 Essential (primary) hypertension; E11.40 Type 2 diabetes mellitus with diabetic neuropathy, unspecified; Z79.899 Other long term (current) drug therapy; Z79.4 Long term (current) use of insulin
CPT/HCPCS: 36415; 80053; 81001; 85025; 87086; 96365; 99284; J0696